=== PATIENT | male | born 1940 | race Caucasian/White ===

== ENCOUNTER → 2017-09-12 07:43 | Outpatient (REF) | payer OTHER, SELFPAY ==
[2017-09-13 11:57] LABS: Bilirubin Negative (Negative); Blood Trace-intact (Negative); Clarity Cloudy; Glucose Negative (Negative); Ketones Trace mg/dL (Negative); Leukocyte Esterase Negative (Negative); Nitrite Negative (Negative); Specific Gravity >= 1.030 (1.005-1.025); Urobilinogen 0.2 EU/dL (Up TO 0.2); pH 5.5 (5-8)
[2017-09-13 12:14] LABS: WBC 0-2 HPF (0-5)
[2017-09-13 12:15] LABS: Epithelial Cells Negative HPF (Negative); Other Cells Few Renal (Negative)
[2017-09-13 12:17] LABS: Bacteria Moderate HPF (Negative); C & S Indicated? Yes; Casts Negative LPF (Negative); Crystals Moderate Amorphous HPF (Negative); Mucus Moderate (Negative)
== END ==
LOC: LBN 07:43
PROVIDERS: PCP Family Medicine; Visit Provider Family Medicine
DX: N39.0 Urinary tract infection, site not specified (principal)
CPT/HCPCS: 87077; 81003; 81015; 87086; 87186

== ENCOUNTER 2017-10-21 12:20 | Outpatient (CLI) | payer OTHER, SELFPAY | END 2017-10-21 12:40 | PROVIDERS: PCP Family Medicine; Visit Provider Family Medicine | DX: N39.0 Urinary tract infection, site not specified (principal) | CPT/HCPCS: 87086 ==

== ENCOUNTER 2017-10-31 08:42 | Outpatient (CLI) | payer OTHER, SELFPAY ==
[2017-10-31 12:48] LABS: Abs Immature Grans 0.01 k/cumm (0.0-0.09); Absolute Basophil Count 0.02 k/cumm (0.0-0.2); Absolute Eosinophil Count 0.09 k/cumm (0.0-0.7); Absolute Neutrophil Count 1.84 k/cumm (1.2-6.7); Basophils % 0.5; Eosinophils % 2.2; HGB 14.2 g/dL (13.5-17.5); Immature Grans % 0.2; Lymphocytes % 36.9; Mean Corpuscular Hemoglobin 37.3 pg (27.0-33.0); Mean Corpuscular Volume 112.9 fL (80-95); Mean Platelet Volume 10.8 fL (8.0-11.0); Monocytes % 14.8; Neutrophils % 45.4; Platelet Count 278 x1000/uL (130-400); RBC 3.81 m/cumm (4.50-6.00); RBC Distribution Width 13.4 % (11.8-14.1); White Blood Cell Count 4.06 k/cumm (4.4-10.8)
[2017-10-31 13:17] LABS: Anisocytosis 2+
[2017-10-31 13:18] LABS: Polychromasia Present
== END 2017-10-31 09:02 ==
PROVIDERS: PCP Family Medicine; Visit Provider Internal Medicine Hematology & Oncology
DX: D47.3 Essential (hemorrhagic) thrombocythemia (principal)
CPT/HCPCS: 36415; 85025

== ENCOUNTER 2017-11-17 02:21 | Outpatient (CLI) | payer OTHER, SELFPAY ==
[2017-11-17 11:59] LABS: Abs Immature Grans 0.01 k/cumm (0.0-0.09); Absolute Basophil Count 0.01 k/cumm (0.0-0.2); Absolute Eosinophil Count 0.06 k/cumm (0.0-0.7); Absolute Lymphocyte Count 1.41 k/cumm (1.2-3.4); Absolute Monocyte Count 0.91 k/cumm (0.11-0.7); Absolute Neutrophil Count 1.41 k/cumm (1.2-6.7); Basophils % 0.3; Eosinophils % 1.6; HCT 44.4 % (40.0-50.0); HGB 14.6 g/dL (13.5-17.5); Immature Grans % 0.3; Mean Corp. HGB Concentration 32.9 g/dL (32.0-36.0); Mean Corpuscular Hemoglobin 36.8 pg (27.0-33.0); Mean Corpuscular Volume 111.8 fL (80-95); Mean Platelet Volume 10.2 fL (8.0-11.0); Monocytes % 23.9; Neutrophils % 36.9; Platelet Count 275 x1000/uL (130-400); RBC 3.97 m/cumm (4.50-6.00); RBC Distribution Width 13.3 % (11.8-14.1); White Blood Cell Count 3.81 k/cumm (4.4-10.8)
[2017-11-17 12:25] LABS: Diff Comment Agrees w/ Instrument; Macrocytosis 2+
[2017-11-17 13:12] LABS: ALT 20 U/L (12-78); AST 11 U/L (15-37); Albumin 3.7 g/dL (3.4-5.0); Alkaline Phosphatase 76 U/L (46-116); Anion Gap 6.5 mmol/L (3-11); BUN 23 mg/dL (7-18); Bilirubin, Total 0.6 mg/dL (0.2-1.0); CO2 31.5 mmol/L (21.0-32.0); CREATININE 1.24 mg/dL (0.70-1.30); Calcium 8.8 mg/dL (8.5-10.1); Chloride 105 mmol/L (98-107); Cholesterol 155 mg/dL (50-200); Estimated GFR 56.68 (mL/min/1.73m2); Glucose 94 mg/dL (70-100); HDL Cholesterol 59 mg/dL (40-60); LDL CHOLESTEROL 86 mg/dL (<100); Potassium 4.6 mmol/L (3.5-5.1); Sodium 143 mmol/L (136-145); Total Protein 6.7 g/dL (6.4-8.2); Triglyceride 97 mg/dL (30-150)
== END 2017-11-17 02:41 ==
PROVIDERS: Internal Medicine Hematology & Oncology; PCP Family Medicine; Visit Provider Family Medicine
DX: D47.3 Essential (hemorrhagic) thrombocythemia (principal); E78.00 Pure hypercholesterolemia, unspecified; G93.1 Anoxic brain damage, not elsewhere classified
CPT/HCPCS: 36415; 80053; 80061; 83721; 85025

== ENCOUNTER 2018-02-09 02:28 | Outpatient (CLI) | payer OTHER, SELFPAY ==
[2018-02-09 11:15] LABS: Abs Immature Grans 0.01 k/cumm (0.0-0.09); Absolute Basophil Count 0.01 k/cumm (0.0-0.2); Absolute Eosinophil Count 0.07 k/cumm (0.0-0.7); Absolute Lymphocyte Count 1.37 k/cumm (1.2-3.4); Absolute Neutrophil Count 2.01 k/cumm (1.2-6.7); Basophils % 0.2; Eosinophils % 1.7; HCT 42.6 % (40.0-50.0); HGB 14.7 g/dL (13.5-17.5); Immature Grans % 0.2; Lymphocytes % 33.7; Mean Corp. HGB Concentration 34.5 g/dL (32.0-36.0); Mean Corpuscular Hemoglobin 38.1 pg (27.0-33.0); Mean Corpuscular Volume 110.4 fL (80-95); Mean Platelet Volume 10.2 fL (8.0-11.0); Monocytes % 14.7; Neutrophils % 49.5; Platelet Count 269 x1000/uL (130-400); RBC 3.86 m/cumm (4.50-6.00); RBC Distribution Width 13.7 % (11.8-14.1); White Blood Cell Count 4.07 k/cumm (4.4-10.8)
== END 2018-02-09 02:48 ==
PROVIDERS: PCP Family Medicine; Visit Provider Internal Medicine Hematology & Oncology
DX: D47.3 Essential (hemorrhagic) thrombocythemia (principal)
CPT/HCPCS: 36415; 85025

== ENCOUNTER 2018-04-10 10:10 | Outpatient (CLI) | payer OTHER, SELFPAY ==
--- NOTE | 2018-04-17 06:51 | HOLTER_ITS ---
HOLTER MONITOR DATE OF DICTATION April 14, 2018 RECORDING April 10, 2018 ANALYSIS April 12, 2018 INDICATION Bradycardia. REFERRING PHYSICIAN Iris Mejia M.D. FINDINGS 1. Baseline sinus rhythm, 53-108 beats per minute, average 66 beats per minute. 2. Rare PAC, less than 1%, 4 SVT runs, maximally 13 beats, maximally 176 beats per minute. No AF. 3. Occasional PVC, 1%, 987 in 24 hours, 11 couplets, 15 beat nonsustained VT 113 beats per minute. 4. No pauses. 5. No symptoms recorded. Dominique Samuel M.D. LAINA/heather T - 04/17/2018
== END 2018-04-10 10:30 ==
PROVIDERS: PCP Family Medicine; Visit Provider Family Medicine
DX: R00.1 Bradycardia, unspecified (principal); I47.1 Supraventricular tachycardia; I49.3 Ventricular premature depolarization
CPT/HCPCS: 93225

== ENCOUNTER 2018-04-12 14:51 | Outpatient (CLI) | payer OTHER, SELFPAY | END 2018-04-12 15:11 | PROVIDERS: PCP Family Medicine; Visit Provider Family Medicine | DX: R00.1 Bradycardia, unspecified (principal); I47.1 Supraventricular tachycardia; I49.3 Ventricular premature depolarization | CPT/HCPCS: 93226 ==

== ENCOUNTER 2018-04-21 15:27 | Outpatient (CLI) | payer OTHER, SELFPAY ==
--- NOTE | 2018-04-21 16:06 | SAO2N_ITS ---
SAO2 with Exercise Patient:KINGSLEY HAMPTON Date/Time: 04/22/18 1741 [id number] Tech: KL
== END 2018-04-21 15:47 ==
PROVIDERS: PCP Family Medicine; Visit Provider Family Medicine
DX: J44.9 Chronic obstructive pulmonary disease, unspecified (principal)
CPT/HCPCS: 94762

== ENCOUNTER 2018-05-08 08:30 | Outpatient (CLI) | payer OTHER, SELFPAY ==
[2018-05-08 12:44] LABS: Absolute Basophil Count 0.02 k/cumm (0.0-0.2); Absolute Eosinophil Count 0.05 k/cumm (0.0-0.7); Absolute Lymphocyte Count 1.42 k/cumm (1.2-3.4); Absolute Monocyte Count 0.49 k/cumm (0.11-0.7); Absolute Neutrophil Count 1.86 k/cumm (1.2-6.7); Basophils % 0.5; Eosinophils % 1.3; HGB 14.4 g/dL (13.5-17.5); Mean Corp. HGB Concentration 32.7 g/dL (32.0-36.0); Mean Corpuscular Hemoglobin 36.3 pg (27.0-33.0); Mean Corpuscular Volume 110.8 fL (80-95); Mean Platelet Volume 10.8 fL (8.0-11.0); Monocytes % 12.8; Neutrophils % 48.4; Platelet Count 305 x1000/uL (130-400); RBC 3.97 m/cumm (4.50-6.00); RBC Distribution Width 13.8 % (11.8-14.1); White Blood Cell Count 3.84 k/cumm (4.4-10.8)
[2018-05-08 13:17] LABS: Anisocytosis 2+; Diff Comment RBC Morph Reviewed; Polychromasia Present
[2018-05-08 13:21] LABS: ALT 25 U/L (12-78); AST 19 U/L (15-37); Albumin 3.6 g/dL (3.4-5.0); Alkaline Phosphatase 73 U/L (46-116); Anion Gap 8.2 mmol/L (3-11); BUN 21 mg/dL (7-18); Bilirubin, Total 0.8 mg/dL (0.2-1.0); CO2 30.8 mmol/L (21.0-32.0); CREATININE 1.03 mg/dL (0.70-1.30); Calcium 9.1 mg/dL (8.5-10.1); Chloride 105 mmol/L (98-107); Glucose 73 mg/dL (70-100); Potassium 4.3 mmol/L (3.5-5.1); Sodium 144 mmol/L (136-145); Total Protein 6.7 g/dL (6.4-8.2)
== END 2018-05-08 08:50 ==
PROVIDERS: PCP Family Medicine; Visit Provider Internal Medicine Hematology & Oncology
DX: D47.3 Essential (hemorrhagic) thrombocythemia (principal)
CPT/HCPCS: 36415; 80053; 85025

== ENCOUNTER 2018-10-25 19:11 | Emergency (ER) | payer OTHER, SELFPAY ==
[2018-10-25 19:10] VITALS: BP 129/77; PULSE 68; RESP 18; TEMP 36.7; O2SAT 94
--- NOTE | 2018-10-25 19:41 | ED.GENADUL_ITS ---
Discharge Plan Disposition Patient Disposition: HOME Condition: Fair Discharge Details Chief Complaint: Abd Prob Clinical Impression: Vomiting Primary Care Provider: Iris Mejia ED Provider: Gabriela Colin Home Meds and New Rx's Prescriptions: Continued aspirin 81 MG tablet,chewable 81 mg PO DAILY RF: 0 escitalopram oxalate [Lexapro] 10 mg tablet 10 mg PO DAILY Qty: 90 RF: 12 simvastatin [Zocor] 20 mg tablet 20 mg PO HS Qty: 90 RF: 4 hydroxyurea [Hydrea] 500 mg capsule 1,000 mg PO DAILY Qty: 180 RF: 12 docusate sodium [Colace] 100 mg capsule 100 mg PO DAILY PRNRF: 0 Discharge Instructions Instructions: Acute Nausea and Vomiting (ED) Additional Instructions: Continue to encourage hydration. At this point, imaging, labs are reassuring. Please follow-up with primary care within the next week for reevaluation. If you develop fever/chills, inability stay hydrated, chest pain, shortness of breath or the new/worsening symptoms please seek care urgently once again. Referrals: Iris Mejia MD, [place] [Primary Care Provider] - Discharge Data Discharge Date/Time-TO BE ENTERED AT DEPARTURE: 10/25/18 23:53 Medical Decision Making Patient is 78-year-old male, brought in via EMS and accompanied by his , with chief complaint of nausea and vomiting. Therefore the prior to arrival he was eating dinner when suddenly he became nauseated and vomited x5. Reports that primarily is bringing up bile. Was eating steak and corn at times came up. He denies any feeling of food being stuck a foreign body sensation. He denies any chest pain or shortness of breath. Patient does have history of hiatal hernia with subsequent fundoplication. reports that he did have symptoms similar to this for that time he was also having hematemesis. Denies any blood in the emesis today. Patient also has a history of NV. does report that his initial symptom was sudden onset of vomiting. He then suffered a cardiac arrest. Had subsequent anoxic brain injury. Cardiac catheterization was performed stent placement. Patient denies any chest pain. No shortness of breath. Is not currently nauseated. He reports that currently he is feeling quite well. is primarily the historian, does report memory deficit after the anoxic brain injury. On exam, patient is well-appearing. Vital signs are within normal limits. He does clear his throat frequently and reports this is new over the past few months. She reports that this was similar to symptoms associated with his hiatal hernia. Lungs are clear. Normal cardiac exam. No lower extremity edema. Abdomen is benign. Given the patient's history, I am concerned for possible cardiac source. Patient was not active at the time of onset. Will obt ain EKG, laboratory evaluation and chest x-ray. Advised that the patient was you had a recurrence of the hiatal hernia this may be visible on the chest x- ray. As he is not having any abdominal pain at this time, do not feel that CT of the abdomen is needed . ECG reviewed by Dr. Villasenor. NSR, rate 60. Patient has nonspecific T wave abnormalities but these are unchanged from previous. CXR reviewed by radiologist: INDINGS: Lungs: Mild prominence to the pulmonary vasculature. Lungs are clear. Pleural space: Unremarkable. No pleural effusion. No pneumothorax. Heart/Mediastinum: Previously noted large hiatal hernia is not seen in this examination. Heart also normal size and configuration. Diaphragm: Mild elevation of the left hemidiaphragm. Bones/joints: No acute skeletal abnormality. IMPRESSION: Negative for acute thoracic pathology. Labs reviewed. I constantly low 3.47, this is not atypical for the patient. Slightly anemic at 12.8. is BUN is 21. Calcium is low at 8.4. Troponin is less than 0.05. Discussed these findings with the patient. Patient continues to be asymptomatic. He is resting comfortably and chatting with his . He has not endorsed any recurrence of his nausea. Again, patient is denying any chest pain, shortness of breath, abdominal pain, back pain. Given the patient's history, I do remain concerned for possible ACS although his symptoms are unl ikely. He is now describing the symptoms to be more gagging with subsequent vomiting associated with his food intake. Discussed my concerns with the patient his family. They are agreeable to repeat troponin. Repeat time troponin remains less than 0.05. Discussed the findings with the patient's family. Again, symptoms are not concerning for ACS, rather is the patient's history. I feel that discharge is appropriate at this time and patient is are requesting discharge. He will follow-up closely with primary care. They are given strict return precautions are able to return with any new or worsening symptoms. All other questions and concerns were addressed in agreement this plan. HPI General Mode of arrival: EMS . Date/Time Provider Initiated Documentation: 10/25/18 19:24 . Limitations to Documentation: no limitations . Information obtained by: patient, family () and RN notes reviewed . History of Present Illness 78 year old M presents to the emergency department with the chief complaint of nausea and vomiting, described as mild (denies any abdominal pain, denies nausea at this time), Patient reports no radiation (denies CP, back pain). Patient started experiencing this minute(s) and it has been now resolved. No relieving factors improve symptom(s), Eating worsens symptoms (patient was eating at the time of onset of symptoms) . Patient notes no other symptoms. and nausea/vomiting; denies chest pain, cough, diaphoresis, fever/chills, headaches, loss of appetite, malaise, rash, shortness of breath and weakness. Patient did receive the following treatments prior to arrival, other (give zofran by EMS) Related Data Home Medications Medication Instructions Recorded Confirmed aspirin 81 mg PO DAILY tab-cap 02/10/16 10/25/18 docusate sodium 100 mg capsule 100 mg PO DAILY PRN 11/15/17 10/25/18 escitalopram oxalate 10 mg tablet 10 mg PO DAILY #90 tab-cap 09/18/18 10/25/18 simvastatin 20 mg tablet 20 mg PO HS #90 tab-cap 09/18/18 10/25/18 hydroxyurea 500 mg capsule 1,000 mg PO DAILY #180 tab 09/19/18 10/25/18 Previous Rx's Medication Instructions Recorded escitalopram oxalate 10 mg tablet 10 mg PO DAILY #90 tab-cap 09/18/18 simvastatin 20 mg tablet 20 mg PO HS #90 tab-cap 09/18/18 hydroxyurea 500 mg capsule 1,000 mg PO DAILY #180 tab 09/19/18 Allergies Allergy/AdvReac Type Severity Reaction Status Date / Time cyclobenzaprine HCl AdvReac CONFUSION Unverified 10/25/18 19:14 [From Flexeril] General Stated Complaint: Abd Prob DAWN: 3 Review of Systems Constitutional Constitutional: Reports as per HPI, Denies chills, Denies fever(s), Denies headache(s), Denies lethargy and Denies poor appetite Eyes Eyes: Denies change in vision ENT Ears, Nose, Mouth, and Throat: Denies dizziness and Denies headache(s) Cardiovascular Cardiovascular: Reports as per HPI, Denies chest pain, Denies chest pain at rest, Denies chest pain with activity, Denies diaphoresis, Denies pedal edema, Denies leg edema, Denies lightheadedness, Denies radiating jaw, neck or arm pain, Denies palpitations, Denies dyspnea and Denies dyspnea on exertion Respiratory Respiratory: Reports as per HPI, Denies chest congestion, Denies cough, Denies pain on inspiration, Denies pain with cough, Denies dyspnea, Denies dyspnea on exertion and Denies wheezing Gastrointestinal Gastrointestinal: Reports as per HPI, Denies abdominal pain, Denies change in stool character, Denies cramping, Denies heartburn, Denies diarrhea, Reports nausea, Reports vomiting and Denies hematemesis Genitourinary Genitourinary: Denies system reviewed and no additional complaints, except as docu (denies change in urinary habits) Musculoskeletal Musculoskeletal: Reports as per HPI and Denies back pain Integumentary/Breasts Skin/Breast: Reports as per HPI and Denies rash Neurologic Neurologic: Reports as per HPI, Denies dizziness and Denies headache(s) Endocrine Endocrine: Denies palpitations Allergic/Immunologic Allergic/Immunologic: Denies wheezing [facility] Medical History Cardiac arrest (~2005) Chronic obstructive lung disease (Chronic) FEV1 70% 02/20 COPD (chronic obstructive pulmonary disease) Disorder of adrenal gland (Resolved) Hypofunction; 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 saw Miranda. Resolved with time. Thought to be secondary to brain hypoxia. Diverticulosis of colon without diverticulitis (Chronic) colonoscopy 06/15. Dr Stanford Gonzalez GI Erosive gastroesophageal reflux disease (Chronic 06/09/16) SEVERE-DR. 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 Coyne; neg 09/28/13 Dr. Antoine EGD - IV Sedation (06/09/16) 08/16/12 DR. ANTOINE 05/05/12 Dr. antoine; esophagitis 09/28/13 Dr. antoine H/O esophagogastroduodenoscopy (Resolved) 08/16/2012-Dr. Antoine; 05/05/12-Dr. Antoine; esophagitis 09/28/2013-Dr. Antoine H/O hemorrhoidectomy (Resolved) Hemorrhoidectomy Paraesophageal hernia repair (08/17/16) [facility] [place] Repair of inguinal hernia 2006 Left 2004 Right S/P endoscopy (Resolved) 02/07/13 upper endoscopy S/P inguinal hernia repair (Resolved) left-2005; right-2003 STEMI (~2005) Posterior lateral Family History Mother No problems noted. Father No problems noted. Sister Heart disease PACEMAKER Daughter No problems noted. Daughter No problems noted. Social History Smoking/Tobacco Use Status: Former Tobacco Use Quit Date: 02/07/05 Second Hand Exposure: No Alcohol Intake: never Drug use: Never Substance use type: does not use Caregiver/Support person: Yes Household members: spouse Housing: house Pets and animals: Yes Pets and animals: cat(s) Sexually active: Yes Do you think of yourself as: straight/heterosexual Current gender identity: male Duration: 15-30 minutes/day Frequency: 1-2 times per week Mayuri/Sikhism: Taoist Agree to transfusion: No Do you feel safe at home: Yes Do you feel safe in your relationship?: Yes Exam Const General: cooperative, healthy appearing, comfortable, no acute distress and well developed Nutritional Appearance: average body habitus and well nourished Orientation: alert, awake and oriented x3 HENMT Head: normal to inspection Ears: hearing grossly normal bilaterally Mouth: moist mucous membranes Chest Chest: normal inspection of the chest, normal palpation of entire chest wall and no crepitus Resp Effort & Inspection: normal respiratory effort, able to speak in complete sentences and no respiratory distress Auscultation: clear to auscultation bilaterally, no rales, no rhonchi and no wheezes Cardio Rate: regular rate Rhythm: regular rhythm Heart Sounds: S1 normal and S2 normal GI Inspection: normal to inspection, no edema and non-distended Palpation: soft, no hepatosplenomegaly, not firm, no guarding, not rigid and nontender Auscultation: normal bowel sounds Back/Spine/Pelvis Back: no CVA tenderness Thoracic/Lumbar Spine: thoracic and lumbar spine normal to inspection Skin General skin exam: no rashes or lesions noted Trauma: no lacerations or abrasions Neuro General: alert, awake and oriented x3 Cognition: normal cognition Speech: speech normal Gait: normal gait Extrem General: normal to inspection, normal capillary refill, no pedal edema, no calf tenderness and normal gait Psych Appearance: grossly normal and well kempt Mental Status: mental status grossly normal Speech and Movement: speech and movement normal Course Vital Signs Vital signs: Vital Signs Temperature 36.7 C 10/25/18 19:10 Pulse 68 10/25/18 19:10 Respiratory Rate 18 10/25/18 19:10 Blood Pressure 129/77 10/25/18 19:10 Pulse Oximetry 94 L 10/25/18 19:10 Temperature 36.7 C 10/25/18 19:10 Temperature Source Skin 10/25/18 19:10 Pulse 68 10/25/18 19:10 Respiratory Rate 18 10/25/18 19:10 Respiratory Effort Non-Labored 10/25/18 19:12 Blood Pressure 129/77 10/25/18 19:10 Blood Pressure Position Supine 10/25/18 19:10 Pulse Oximetry 94 L 10/25/18 19:10 Oxygen Delivery Method Room Air 10/25/18 19:10 Oxygen Flow Rate 0 10/25/18 19:10 Pain Level 0 10/25/18 19:17
[2018-10-25 20:07] VITALS: BP 109/71; PULSE 60; RESP 16; O2SAT 95
[2018-10-25 20:09] LABS: Absolute Basophil Count 0.02 k/cumm (0.0-0.2); Absolute Eosinophil Count 0.09 k/cumm (0.0-0.7); Absolute Lymphocyte Count 1.02 k/cumm (1.2-3.4); Absolute Neutrophil Count 1.84 k/cumm (1.2-6.7); Basophils % 0.6; Eosinophils % 2.6; HGB 12.8 g/dL (13.5-17.5); Lymphocytes % 29.4; Mean Corp. HGB Concentration 32.8 g/dL (32.0-36.0); Mean Corpuscular Hemoglobin 37.5 pg (27.0-33.0); Mean Corpuscular Volume 114.4 fL (80-95); Mean Platelet Volume 10.8 fL (8.0-11.0); Monocytes % 14.4; Platelet Count 260 x1000/uL (130-400); RBC 3.41 m/cumm (4.50-6.00); RBC Distribution Width 13.6 % (11.8-14.1); White Blood Cell Count 3.47 k/cumm (4.4-10.8)
--- NOTE | 2018-10-25 20:17 | DI.RAD_ITS ---
EXAM: XR CHEST 2V PA LATERAL INDICATION: N/V, chest congestion. COMPARISON: CHEST 2 VIEWS PA,LAT from 07/22/2016 TECHNIQUE: 2D digital imaging was performed. FINDINGS: The lungs are free of infiltrate. There is no pleural effusion. Compared with previous images again noted is a large gas and fluid containing hiatus hernia. The heart is not enlarged. The hilar structu res, mediastinum and tracheal air column appear stable when compared with previous images. IMPRESSION: There is no evidence of acute cardiopulmonary disease.
[2018-10-25 20:21] LABS: ALT 23 U/L (16-63); AST 16 U/L (15-37); Albumin 3.3 g/dL (3.4-5.0); Alkaline Phosphatase 59 U/L (46-116); BUN 21 mg/dL (7-18); Bilirubin, Total 0.5 mg/dL (0.2-1.0); CREATININE 1.11 mg/dL (0.70-1.30); Calcium 8.4 mg/dL (8.5-10.1); Chloride 109 mmol/L (98-107); Glucose 99 mg/dL (70-100); Magnesium 1.8 mg/dL (1.8-2.4); Potassium 4.7 mmol/L (3.5-5.1); Sodium 145 mmol/L (136-145); Total Protein 6.2 g/dL (6.4-8.2)
[2018-10-25 20:26] LABS: Troponin I < 0.05 ng/mL (0.00-0.06)
--- NOTE | 2018-10-25 20:27 | DI.VRAD_ITS ---
PROCEDURE INFORMATION: Exam: XR Chest, 2 Views Exam date and time: 10/25/2018 7:42 PM Clinical history: 78 years old, male; Other: Nv chest congestion TECHNIQUE: Imaging protocol: XR of the chest Views: 2 views. COMPARISON: CR CHEST 2 VIEWS PA,LAT 07/22/2016 7:49 PM FINDINGS: Lungs: Mild prominence to the pulmonary vasculature. Lungs are clear. Pleural space: Unremarkable. No pleural effusion. No pneumothorax. Heart/Mediastinum: Previously noted large hiatal hernia is not seen in this examination. Heart also normal size and configuration. Diaphragm: Mild elevation of the left hemidiaphragm. Bones/joints: No acute skeletal abnormality. IMPRESSION: Negative for acute thoracic pathology. Dictated and Authenticated by: Elio Real MD. Ordering:VIRAL Ochoa MD
[2018-10-25] MEDS: Normal Saline 1,000 ML 125 ML IV (20:35)
[2018-10-25 21:11] VITALS: BP 106/72; PULSE 58; RESP 16; O2SAT 96
[2018-10-25 22:04] LABS: Macrocytosis 3+
[2018-10-25 23:24] VITALS: BP 116/80; PULSE 67; RESP 17; TEMP 36.9; O2SAT 96
[2018-10-25 23:33] LABS: Troponin I < 0.05 ng/mL (0.00-0.06)
== END 2018-10-25 23:53 | disposition home or self-care (01) ==
PROVIDERS: Emergency Provider Physician Assistant; PCP Family Medicine
DX: R11.2 Nausea with vomiting, unspecified (principal); J44.9 Chronic obstructive pulmonary disease, unspecified; I25.2 Old myocardial infarction; Z98.890 Other specified postprocedural states; Z87.891 Personal history of nicotine dependence
CPT/HCPCS: 36415; 80053; 93005; 96360; 96361; 99285; 71046; 83735; 84484; 85025; 93010

== ENCOUNTER 2019-01-17 01:37 | Outpatient (CLI) | payer OTHER, SELFPAY ==
[2019-01-17 12:48] LABS: HCT 43.8 % (40.0-50.0); HGB 14.6 g/dL (13.5-17.5); Mean Corp. HGB Concentration 33.3 g/dL (32.0-36.0); Mean Corpuscular Volume 114.1 fL (80-95); Mean Platelet Volume 10.5 fL (8.0-11.0); Platelet Count 364 x1000/uL (130-400); RBC 3.84 m/cumm (4.50-6.00); RBC Distribution Width 13.8 % (11.8-14.1); White Blood Cell Count 3.85 k/cumm (4.4-10.8)
[2019-01-17 12:58] LABS: ALT 18 U/L (16-63); AST 17 U/L (15-37); Albumin 3.7 g/dL (3.4-5.0); Alkaline Phosphatase 65 U/L (46-116); Anion Gap 5.3 mmol/L (3-11); BUN 23 mg/dL (7-18); Bilirubin, Total 0.6 mg/dL (0.2-1.0); CO2 31.7 mmol/L (21.0-32.0); CREATININE 1.14 mg/dL (0.70-1.30); Chloride 106 mmol/L (98-107); Glucose 87 mg/dL (74-106); Potassium 4.3 mmol/L (3.5-5.1); Sodium 143 mmol/L (136-145)
== END 2019-01-17 01:57 ==
PROVIDERS: PCP Family Medicine; Visit Provider Internal Medicine Hematology & Oncology
DX: D47.3 Essential (hemorrhagic) thrombocythemia (principal)
CPT/HCPCS: 36415; 80053; 85027

== ENCOUNTER 2019-01-19 11:40 | Outpatient (CLI) | payer OTHER, SELFPAY ==
[2019-01-19 12:38] LABS: HCT 42.9 % (40.0-50.0); HGB 13.9 g/dL (13.5-17.5); Mean Corp. HGB Concentration 32.4 g/dL (32.0-36.0); Mean Corpuscular Hemoglobin 37.1 pg (27.0-33.0); Mean Corpuscular Volume 114.4 fL (80-95); Mean Platelet Volume 10.6 fL (8.0-11.0); Platelet Count 355 x1000/uL (130-400); RBC 3.75 m/cumm (4.50-6.00); RBC Distribution Width 13.9 % (11.8-14.1); White Blood Cell Count 4.05 k/cumm (4.4-10.8)
[2019-01-19 13:42] LABS: ALT 21 U/L (16-63); AST 28 U/L (15-37); Albumin 3.8 g/dL (3.4-5.0); Alkaline Phosphatase 65 U/L (46-116); Anion Gap 7.4 mmol/L (3-11); BUN 22 mg/dL (7-18); Bilirubin, Total 0.7 mg/dL (0.2-1.0); CO2 30.6 mmol/L (21.0-32.0); CREATININE 1.08 mg/dL (0.70-1.30); Calcium 9.1 mg/dL (8.5-10.1); Chloride 106 mmol/L (98-107); Glucose 66 mg/dL (74-106); Potassium 4.6 mmol/L (3.5-5.1); Sodium 144 mmol/L (136-145); Total Protein 6.6 g/dL (6.4-8.2)
== END 2019-01-19 12:00 ==
PROVIDERS: PCP Family Medicine; Referring Provider Internal Medicine Hematology & Oncology; Visit Provider Family Medicine
DX: I95.9 Hypotension, unspecified (principal); D47.3 Essential (hemorrhagic) thrombocythemia; K20.9 Esophagitis, unspecified
CPT/HCPCS: 36415; 80053; 85027

== ENCOUNTER 2019-01-29 00:54 | Outpatient (CLI) | payer OTHER, SELFPAY ==
--- NOTE | 2019-01-29 10:17 | DI.US_ITS ---
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 COMPARISON: There are no prior ultrasounds for comparison. The most recent CT scan of the abdomen i s dated 12/12/2015 FINDINGS: There is limited visualization of the abdominal aorta. The visualized aorta is of normal caliber. T he inferior vena cava is unremarkable. The liver measures 14.3 centimeters in length. No hepatic mass is seen. There is hepatopetal flow i n the portal vein. The gallbladder is unremarkable. There is a negative sonographic Patel sign. No biliary ductal dil atation is present. The pancreatic tail was not visualized, however the remainder of the pancreas is unremarkable. The kidneys are unremarkable. The spleen was not visualized sonographically. This may be due to its location and bowel gas. No free fluid is seen in the abdomen. IMPRESSION: Nonvisualization of the spleen. This may be due to its location and/or bowel gas. A CT scan may be considered for further evaluation. Liver within normal limits in size at 14.3 centimeters. There are no prior sonographic examinations for comparison.
== END 2019-01-29 01:14 ==
PROVIDERS: PCP Family Medicine; Visit Provider Internal Medicine Hematology & Oncology
DX: D47.3 Essential (hemorrhagic) thrombocythemia (principal)
CPT/HCPCS: 76700

== ENCOUNTER 2019-04-17 10:14 | Outpatient (CLI) | payer OTHER, SELFPAY ==
[2019-04-17 12:11] LABS: Abs Immature Grans 0.01 k/cumm (0.0-0.09); Absolute Basophil Count 0.02 k/cumm (0.0-0.2); Absolute Eosinophil Count 0.05 k/cumm (0.0-0.7); Absolute Lymphocyte Count 1.28 k/cumm (1.2-3.4); Absolute Monocyte Count 0.51 k/cumm (0.11-0.7); Absolute Neutrophil Count 2.19 k/cumm (1.2-6.7); Basophils % 0.5; Eosinophils % 1.2; HCT 44.1 % (40.0-50.0); HGB 14.6 g/dL (13.5-17.5); Immature Grans % 0.2 %; Lymphocytes % 31.5; Mean Corp. HGB Concentration 33.1 g/dL (32.0-36.0); Mean Corpuscular Hemoglobin 37.7 pg (27.0-33.0); Mean Platelet Volume 10.2 fL (8.0-11.0); Monocytes % 12.6; Platelet Count 350 x1000/uL (130-400); RBC 3.87 m/cumm (4.50-6.00); RBC Distribution Width 13.4 % (11.8-14.1); White Blood Cell Count 4.06 k/cumm (4.4-10.8)
== END 2019-04-17 10:34 ==
PROVIDERS: PCP Family Medicine; Visit Provider Internal Medicine Hematology & Oncology
DX: D47.3 Essential (hemorrhagic) thrombocythemia (principal)
CPT/HCPCS: 36415; 85025

== ENCOUNTER 2019-06-30 17:27 | Emergency (ER) | payer OTHER, SELFPAY ==
[2019-06-30 17:38] VITALS: BP 116/90; PULSE 72; RESP 18; TEMP 36.4; O2SAT 95
--- NOTE | 2019-06-30 18:00 | ED.GENADUL_ITS ---
Discharge Plan Disposition Patient Disposition: HOME Condition: Stable Discharge Details Chief Complaint: Urinary Clinical Impression: Hematuria Primary Care Provider: Iris Mejia ED Provider: Charis Geronimo Home Meds and New Rx's Prescriptions: No Action aspirin 81 MG tablet,chewable 81 mg PO DAILY RF: 0 escitalopram oxalate [Lexapro] 10 mg tablet 10 mg PO DAILY Qty: 90 RF: 12 hydroxyurea [Hydrea] 500 mg capsule 1,000 mg PO DAILY Qty: 180 RF: 12 simvastatin [Zocor] 20 mg tablet 20 mg PO HS Qty: 90 RF: 4 docusate sodium [Colace] 100 mg capsule 100 mg PO DAILY PRNRF: 0 Discharge Instructions Instructions: Hematuria (ED) Additional Instructions: Please follow-up with Dr. Flores regarding hematuria and the need for cystoscopy. Drink plenty of fluids. Rest activities as tolerated. For any difficulty passing urine, pain in the lower abdomen, weakness, feeling of fatigue or alarming symptoms have immediate reevaluation as discussed. Return for any worsening or concerns sooner if needed Referrals: Terrance Flores MD [ [facility] STAFF PHYSICIAN] - Discharge Data Discharge Date/Time-TO BE ENTERED AT DEPARTURE: 06/30/19 21:20 Medical Decision Making 78-year-old patient presenting the emergency room for complaints of hematuria. who provides the majority of patient's HPI reports hematuria began yesterday. Patient only complained of mild discomfort when passing blood clots with urination today. Patient does have some baseline malaise which seems unchanged. See HPI for remainder of patient's history. Patient appears well on initial evaluation. Patient reports urinating without difficulty. reports patient has urinated several times today without difficulty. No urinary retention. Mild hesitancy is described at onset of stream. Patient has no CVA tenderness or abdominal pain. Will plan to obtain urinalysis as well as CBC as patient does have history of essential thrombocythemia. Given new onset hematuria we will plan to obtain CT urogram. Patient's initial vital signs are normal. Patient's CBC reveals normal platelets. H&H 13.6 and 41.4. Patient's renal function reveals no significant change compared to baseline. LFTs normal. Urinalysis reveals large blood. No evidence of acute infection at this time. Patient CT reveals IMPRESSION: 1. Small right-sided urinary bladder filling defects are identified on delayed imaging. These could be a source of hematuria and cystoscopy is recommended to assess possible malignancy. 2. Punctate nonobstructive right nephrolithiasis. 3. A large amount of desiccated appearing stool in the rectum with mild surrounding edema. Suggests a component of constipation with mild resulting proctitis. Patient CT results, labs and platelets as well as symptomatic presentation discussed with Dr. Flores of urology. Dr. Flores recommends follow-up as an outpatient for cystoscopy. Recommends return precautions to include difficulty voiding or inability to pass urine. Patient's results discussed with patient's as patient's memory is significantly impaired. given copy of results to follow-up with PCP. Recommended follow-up with Dr. Flores. Precautions discussed, recommended pushing fluids. Patient feels comfortable discharge home at this time. Vital signs remained normal. The patient was stable and requested discharge. Prior to discharge, my usual and customary return precautions were reviewed with the patient - this included follow-up instructions and reasons to return to the Emergency Department if conditions worsens, does not improve as expected, or other new concerns arise. HPI General Date/Time Provider Initiated Documentation: 06/30/19 17:31 . HPI Narrative: This is a 78-year-old patient who presents to the emergency room for onset of hematuria which began yesterday. Patient called PCP they recommended observation and follow-up in the office on Tuesday. Patient awoke this morning initial urination was again noted to have uriel hematuria. Patient has urinated 3 times today and does report passing clots of blood in his urine mild discomfort experienced when passing blood clots. Patient denies any dysuria. Denies abdominal pain or back pain. Denies fevers, chills. at the bedside who provides the better portion of patient's history as he has underlying memory issues reports that he always has some mild malaise. He does have a pertinent medical history of essential thrombocythemia. Patient has no other obvious sources of bleeding at this time. Denies any other bruising. No gum bleeding. No other concerns or complaints at this time. Patient denies any chest pain w ith difficulty breathing shortness of breath or wheezing. Patient denies any headache or dizziness. Patient's been eating and drinking without difficulty. Patient denies any bowel changes. Denies any testicular pain or swelling. Related Data Home Medications Medication Instructions Recorded Confirmed aspirin 81 mg PO DAILY tab-cap 02/10/16 06/30/19 docusate sodium 100 mg capsule 100 mg PO DAILY PRN 11/15/17 06/30/19 escitalopram oxalate 10 mg tablet 10 mg PO DAILY #90 tab-cap 09/18/18 06/30/19 hydroxyurea 500 mg capsule 1,000 mg PO DAILY #180 tab 09/19/18 06/30/19 simvastatin 20 mg tablet 20 mg PO HS #90 tab-cap 03/06/19 06/30/19 Previous Rx's Medication Instructions Recorded escitalopram oxalate 10 mg tablet 10 mg PO DAILY #90 tab-cap 09/18/18 hydroxyurea 500 mg capsule 1,000 mg PO DAILY #180 tab 09/19/18 simvastatin 20 mg tablet 20 mg PO HS #90 tab-cap 03/06/19 Allergies Allergy/AdvReac Type Severity Reaction Status Date / Time cyclobenzaprine HCl AdvReac CONFUSION Unverified 06/30/19 17:53 [From Flexeril] General Stated Complaint: Urinary DAWN: 4 Review of Systems All systems reviewed & are unremarkable except as noted in HPI and below PFSH Medical History Cardiac arrest (~2005) Chronic obstructive lung disease (Chronic) FEV1 70% 02/20 COPD (chronic obstructive pulmonary disease) Disorder of adrenal gland (Resolved) Hypofunction; 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 saw Miranda. Resolved with time. Thought to be secondary to brain hypoxia. Disorder of adrenal gland (Inactive) Diverticulosis of colon without diverticulitis (Chronic) colonoscopy 06/15. Dr Stanford Gonzalez GI Erosive gastroesophageal reflux disease (Chronic 06/09/16) SEVERE-DR. ANTOINE 06/09/16 Esophagitis Esophagitis (Chronic 04/08/12) Essential thrombocythemia (Chronic 03/28/12) Essential thrombocytopenia Full incontinence of feces (Chronic 08/15/17) Hemorrhoids (Resolved) S/P SURGERY Herpes zoster (Resolved) Hiatal hernia Hiatal hernia (Chronic 04/08/12) DR. 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 Coyne; neg 09/28/13 Dr. Antoine EGD - IV Sedation (06/09/16) 08/16/12 DR. ANTOINE 05/05/12 Dr. antoine; esophagitis 09/28/13 Dr. antoine H/O esophagogastroduodenoscopy (Resolved) 08/16/2012-Dr. Antoine; 05/05/12-Dr. Antoine; esophagitis 09/28/2013-Dr. Antoine H/O hemorrhoidectomy (Resolved) Hemorrhoidectomy History of esophagogastroduodenoscopy (Inactive) History of hemorrhoidectomy (Inactive) Paraesophageal hernia repair (08/17/16) [facility] Repair of inguinal hernia 2006 Left 2003 Right S/P endoscopy (Resolved) 02/07/13 upper endoscopy S/P inguinal hernia repair (Resolved) left-2005; right-2003 Status post inguinal hernia repair (Inactive) STEMI (~2005) Posterior lateral Social History Smoking/Tobacco Use Status: Former Tobacco Use Quit Date: 02/07/05 Second Hand Exposure: No Alcohol Intake: never Drug use: Current Sobriety Substance use type: marijuana Caregiver/Support person: Yes Household members: spouse Housing: house Pets and animals: Yes Pets and animals: cat(s) Sexually active: Yes Do you think of yourself as: straight/heterosexual Current gender identity: male Duration: 15-30 minutes/day Frequency: 1-2 times per week Mayuri/Mandaen: Jainism Agree to transfusion: No Do you feel safe at home: Yes Do you feel safe in your relationship?: Yes Exam Narrative Exam Narrative: CONST: Healthy appearing patient, in no acute distress. Well hydrated. Alert and oriented. EYES: General normal appearance. Alignment normal. Eyelids normal. Conjunctiva normal. Sclera normal. PERRL. NECK: Normal visual inspection. FROM. No lymphadenopathy. Trachea midline. No Midline tenderness. CHEST: Normal insepection of the chest. RESP: Normal respiratory effort. Speaking full sentences. No cough. No wheezing. No retractions. Clear to auscaltation. Breath sound equal and present bilaterally. CARDIO: No JVD. Normal PMI. Regular Rate. Regular Rhythm. Normal peripheral pulses. GI: Normal inspection of abdomen. No distension. Soft. Nontender. Bowel sounds present in all 4 quadrants. No rebound. No gaurding. MUSCULOSKELETAL: Normal Gait. FROM of all extremities. Distal neurovascularly intact. Sensation intact distally. SKIN: Normal. Dry. No rashes. NEURO: Alert and awake. Speech clear. PSYCH: Normal affect. Cooperative. Course Vital Signs Vital signs: Vital Signs Temperature 36.4 C L 06/30/19 17:38 Pulse 72 06/30/19 17:38 Respiratory Rate 18 06/30/19 17:38 Blood Pressure 116/90 06/30/19 17:38 Pulse Oximetry 95 06/30/19 17:38 Temperature 36.4 C L 06/30/19 17:38 Pulse 72 06/30/19 17:38 Respiratory Rate 18 06/30/19 17:38 Respiratory Effort Non-Labored 06/30/19 17:51 Blood Pressure 116/90 06/30/19 17:38 Blood Pressure Position Sitting 06/30/19 17:38 Pulse Oximetry 95 06/30/19 17:38 Oxygen Delivery Method Room Air 06/30/19 17:38 Oxygen Flow Rate 0 06/30/19 17:38 Pain Level 0 06/30/19 17:53 Lab/Test Results Lab/Test Results: 06/30/19 17:54 Urine - Clean Catch Urine Culture - Pending
--- NOTE | 2019-06-30 18:15 | DI.CT_ITS ---
EXAM: CT ABDOMEN PELVIS WO/W TECHNIQUE: Imaging Protocol: Axial computed tomography images with coronal and sagittal reformatted images were created and reviewed CONTRAST MATERIAL: Intravenous: Omnipaque 350 Contrast volume:99 cc contrast route:IV - Exam was performed pre and post IV contrast. Oral no COMPARISON: CT ABD PELVIS WITH CONTRAST from 09/07/2007 CR,XR XR CHEST 2V PA LATERAL from 10/25/2018 FINDINGS: ABDOMEN: Lung Bases: Normal where visualized. Liver: Normal density. No measurable mass. Gallbladder and biliary tract: No radiodense calculus or dilation. Pancreas: Normal density, no abnormal calcifications or inflammatory process. Spleen: Normal. Kidneys: Normal size, contour and axis. A tiny nonobstructing stone is seen on noncontrast images in the upper pole of the right kidney. There is a small left renal cyst. Adrenal glands: No masses seen. Lymph nodes: Within normal limits. Abdominal Aorta: Abdominal portion non-dilated. Mild calcification. PELVIS: Bladder: There are 2 adjacent small filling defects in the right posterior bladder, the larger measur ing 10 millimeters. There is also suggestion of a more ill-defined anterior bladder wall mass versus artifact.. Bowel: Suture material is noted near the fundus of the stomach. There is a large quantity of stool s een in the rectum which is distended to 7.5 cm. No obstruction or bowel wall thickening. Peritoneal cavity: No ascites, collection or mesenteric inflammatory response. Bones: Severe degenerative disc changes Reproductive organs: Mildly enlarged prostate.. IMPRESSION: Two right posterior bladder masses. Question of additional anterior bladder mass. Cystoscopy is rec ommended. Nonobstructing stones at the upper pole of the right kidney. Rectum distended with stool. RADIATION DOSE DELIVERED: 2,212.94mGy.cm Total DLP DATA REPOSITORY: All CT scans at this facility are submitted to the National Radiology Data Registry (NRDR) Dose Index Registry (DIR) with the [employer] (ACR). RADIATION OPTIMIZATION: All CT scans at this facility use at least one of these dose optimization te chniques: automated exposure control; mA and/or kV adjustment per patient size (includes targeted exa ms where dose is matched to clinical indication); or iterative reconstruction.
[2019-06-30 18:21] LABS: Bilirubin Negative (Negative); Blood Large (Negative); Clarity Cloudy (Clear); Glucose Negative (Negative); Ketones Negative (Negative); Leukocyte Esterase Negative (Negative); Nitrite Negative (Negative); Specific Gravity >= 1.030 (1.005-1.025); Urobilinogen 0.2 EU/dL (Up TO 0.2); pH 6.5 (5-8)
[2019-06-30 18:22] LABS: C & S Indicated? C&S Done As Ordered; RBC >50 HPF (0-2)
[2019-06-30 18:36] LABS: Abs Immature Grans 0.01 k/cumm (0.0-0.09); Absolute Basophil Count 0.02 k/cumm (0.0-0.2); Absolute Eosinophil Count 0.07 k/cumm (0.0-0.7); Absolute Lymphocyte Count 1.61 k/cumm (1.2-3.4); Absolute Monocyte Count 0.58 k/cumm (0.11-0.7); Absolute Neutrophil Count 1.88 k/cumm (1.2-6.7); Basophils % 0.5; Eosinophils % 1.7; HCT 41.4 % (40.0-50.0); HGB 13.6 g/dL (13.5-17.5); Immature Grans % 0.2 %; Lymphocytes % 38.6; Mean Corp. HGB Concentration 32.9 g/dL (32.0-36.0); Mean Corpuscular Hemoglobin 37.1 pg (27.0-33.0); Mean Corpuscular Volume 112.8 fL (80-95); Mean Platelet Volume 10.1 fL (8.0-11.0); Monocytes % 13.9; Neutrophils % 45.1; Platelet Count 338 x1000/uL (130-400); RBC 3.67 m/cumm (4.50-6.00); RBC Distribution Width 13.7 % (11.8-14.1); White Blood Cell Count 4.17 k/cumm (4.4-10.8)
[2019-06-30 18:38] LABS: Diff Comment RBC Morph Reviewed; Macrocytosis 3+
[2019-06-30 18:52] LABS: ALT 26 U/L (16-63); AST 20 U/L (15-37); Albumin 3.6 g/dL (3.4-5.0); Alkaline Phosphatase 57 U/L (46-116); Anion Gap 2.8 mmol/L (3-11); BUN 26 mg/dL (7-18); Bilirubin, Total 0.6 mg/dL (0.2-1.0); CO2 31.2 mmol/L (21.0-32.0); CREATININE 1.28 mg/dL (0.70-1.30); Calcium 8.5 mg/dL (8.5-10.1); Chloride 106 mmol/L (98-107); Glucose 95 mg/dL (74-106); Potassium 4.5 mmol/L (3.5-5.1); Sodium 140 mmol/L (136-145); Total Protein 6.6 g/dL (6.4-8.2)
[2019-06-30] MEDS: Omnipaque 350 MG/ML 100 ML BTL IJ (19:28)
[2019-06-30] MEDS: Normal Saline - Diluent 50 ML VIAL IV (19:29)
--- NOTE | 2019-06-30 19:54 | DI.VRAD_ITS ---
PROCEDURE INFORMATION: Exam: CT Abdomen And Pelvis Without And With Contrast; Urography Exam date and time: 06/30/2019 19:13 Age: 78 years old Clinical indication: Other: Hematuria TECHNIQUE: Imaging protocol: Computed tomography of the abdomen and pelvis without and with intravenous contrast. Exam focused on the kidneys and ureters. COMPARISON: CR LEFT HIP COMPLETE \T\ AP PELVIS 07/22/2016 19:49 FINDINGS: Lungs: The lung bases appears somewhat hyperinflated. Trace pleural fluid on the right. Liver: Focal fat in the liver near the fissure for the ligamentum teres. No hepatic masses. Gallbladder and bile ducts: Normal. No calcified stones. No ductal dilation. Pancreas: Normal. No ductal dilation. Spleen: Normal. No splenomegaly. Adrenals: Normal. No mass. Kidneys and ureters: Punctate nonobstructive right nephrolithiasis. No renal masses. No hydronephrosis bilaterally. A benign-appearing left renal cyst. The no significant filling defects are identified in the ureters although these are partially opacified. No gross caliceal or renal pelvic defects. Stomach and bowel: Slightly unusual configuration of the proximal stomach, question fundoplication. The stomach is decompressed in the gastric wall is challenging to assess. Correlation with the clinical history will be helpful. Surgical clips around the GE junction. A large amount of desiccated appearing stool in the rectum with mild surrounding edema. No colitis or enteritis. No obstruction. Intraperitoneal space: Unremarkable. No free air. No significant fluid collection. Lymph nodes: Unremarkable. No enlarged lymph nodes. Vasculature: Unremarkable. No abdominal aortic aneurysm. Bladder: Approximately 10 x 5 x 9 mm filling defect, right posterior aspect of the urinary bladder on delayed imaging. An additional adjacent filling defect is suggested. Reproductive: Moderate prostatic enlargement. Bones/joints: Degenerative changes in the spine. No acute fracture or subluxation. Soft tissues: Left Bochdalek's hernia containing fat. IMPRESSION: 1. Small right-sided urinary bladder filling defects are identified on delayed imaging. These could be a source of hematuria and cystoscopy is recommended to assess possible malignancy. 2. Punctate nonobstructive right nephrolithiasis. 3. A large amount of desiccated appearing stool in the rectum with mild surrounding edema. Suggests a component of constipation with mild resulting proctitis. 4. Additional findings as described. Dictated and Authenticated by: Janet Callahan MD. Ordering:NAWAF Vizcaino MD
[2019-06-30 21:14] VITALS: BP 121/74; PULSE 62; RESP 18; O2SAT 96
--- NOTE | 2019-06-30 23:05 | NUR.NOTE ---
Nursing Note:faxed referal to emma 06/30/19
== END 2019-06-30 21:20 | disposition home or self-care (01) ==
PROVIDERS: Emergency Provider Physician Assistant; PCP Family Medicine
DX: R93.41 Abnormal radiologic findings on diagnostic imaging of renal pelvis, ureter, or bladder (principal); R31.9 Hematuria, unspecified; D47.3 Essential (hemorrhagic) thrombocythemia; J44.9 Chronic obstructive pulmonary disease, unspecified; Z87.891 Personal history of nicotine dependence; I10 Essential (primary) hypertension
CPT/HCPCS: 36415; 80053; 99285; 74178; 81003; 81015; 85025; 87086; 99284; J3490

== ENCOUNTER → 2019-07-03 13:59 | Outpatient (BNVA) | payer OTHER, SELFPAY | PROVIDERS: PCP Family Medicine; Referring Provider Family Medicine; Visit Provider Nurse Practitioner Gerontology | DX: N32.89 Other specified disorders of bladder (principal); R31.9 Hematuria, unspecified; J44.9 Chronic obstructive pulmonary disease, unspecified; I10 Essential (primary) hypertension | CPT/HCPCS: 81003; 99204; 99215 ==

== ENCOUNTER 2019-07-04 09:51 | Outpatient (CLI) | payer OTHER, SELFPAY ==
[2019-07-05 16:51] LABS: COVID-19 RT-PCR UVMMC Result Negative (Negative)
== END 2019-07-04 10:11 ==
PROVIDERS: PCP Family Medicine; Visit Provider Urology
DX: Z11.59 Encounter for screening for other viral diseases (principal)
CPT/HCPCS: U0003

== ENCOUNTER 2019-07-06 06:13 | Day surgery (SDC) | payer OTHER, SELFPAY ==
[2019-07-06 06:27] VITALS: BP 109/65; PULSE 64; RESP 16; TEMP 36.6; O2SAT 96
--- NOTE | 2019-07-06 06:42 | W.PM.HP.N ---
Date of service: 07/06/19 Time of Service: 06:42 Assessment and Plan Assessment and plan (1) Hematuria: Status: Acute Assessment and plan: We will move ahead with cystoscopy. If any bladder tumor is visible, we will be prepared to resect and cauterize the affected site. If a large tumor is identified and postoperative bleeding is expected, we may need to keep him overnight for bladder irrigation. History of Present Illness History of Present Illness Chief Complaint: Gross hematuria Narrative: This is a 78-year-old gentleman who presented to the emergency room with gross hematuria. He has been passing some clots. His work-up to date has included a CT urogram which showed possible filling defects on the lateral bladder wall. He presents now for cystoscopy with possible transurethral resection of any visible bladder tumor. He has not seen any gross hematuria since yesterday. Review of Systems Narrative: No fevers or chills No vision change or dysphasia No diabetes or thyroid No hemoptysis. SOB related to COPD No chest pain or palpitations Hx GERD. No hepatitis, ulcers, jaundice, diarrhea or constipation No seizures, strokes or peripheral neuropathy Hx thrombocythemia No gout. Chronic neck and low back pain. [facility] Social History Smoking/Tobacco Use Status: Former Tobacco Use Quit Date: 02/07/05 Second Hand Exposure: No Alcohol Intake: never Substance use type: does not use Caregiver/Support person: Yes Household members: spouse Housing: house Pets and animals: Yes Pets and animals: cat(s) Sexually active: Yes Do you think of yourself as: straight/heterosexual Current gender identity: male Duration: 15-30 minutes/day Frequency: 1-2 times per week Mayuri/Cheondoism: Religious Agree to transfusion: No Additional Social history: answered questions for pt. Meds Home Medications and Allergies Home Medications Medication Instructions Recorded Confirmed Type aspirin 81 mg PO DAILY tab-cap 02/10/16 07/06/19 History docusate sodium 100 mg capsule 100 mg PO DAILY PRN 11/15/17 07/06/19 History escitalopram oxalate 10 mg tablet 10 mg PO DAILY #90 tab-cap 09/18/18 07/06/19 Rx hydroxyurea 500 mg capsule 1,000 mg PO DAILY #180 tab 09/19/18 07/06/19 Rx simvastatin 20 mg tablet 20 mg PO HS #90 tab-cap 03/06/19 07/06/19 Rx Allergies Allergy/AdvReac Type Severity Reaction Status Date / Time cyclobenzaprine HCl AdvReac CONFUSION Unverified 07/06/19 06:20 [From Flexeril] Exam Narrative Exam Narrative: He is in no current distress. He does not appear septic or toxic. His vital signs are documented elsewhere His lungs are clear Cardiac exam shows a regular rate and rhythm His abdomen is soft with no mass He is awake and alert Results Last Vital Signs Temp 36.6 C 07/06/19 06:27 Pulse 64 07/06/19 06:27 Resp 16 07/06/19 06:27 BP 109/65 07/06/19 06:27 Pulse Ox 96 07/06/19 06:27 COVID-19 Screening In the past 14 days, have you traveled outside of [place] or [place]?: NO
[2019-07-06] MEDS: Lactated Ringers 1,000 ML 80 ML IV (06:55)
[2019-07-06] MEDS: ceFAZolin 1 GM/50 ML BAG IVPB (07:50)
[2019-07-06] MEDS: Lidocaine 2% Jelly 6 ML SYR (08:14)
--- NOTE | 2019-07-06 08:15 | BLADDER_PTH ---
PATIENT: Sy Pritchett LOC: [facility] U#:[id number] AGE/SX: 78/M ROOM: RE07/06/[address]: Terrance Flores MD : 1940 BED: DIS: 07/06/2019 SPEC #: [id number] RECD: 07/06/19 14:23 STATUS: ALAN REQ #: [id number] BALTAZAR: 07/06/19 08:[address]: Terrance Flores DEPT: Surgical Specimen RECD BY: Jackie Lin ENTERED: 07/06/19 14:23 SP TYPE: Bladder OTHR DR: Iris Mejia MD, DC Tissues: 1 - BLADDER CURRETTINGS Procedures: GROSS AND MICRO LEVEL 5 Comments: [id number]
--- NOTE | 2019-07-06 08:34 | PDOC.DSDIS_ITS ---
Discharge Plan Disposition Patient Disposition: HOME Condition: Stable Discharge Details Reason For Visit: BLADDER MASS / GROSS HEMATURIA Admit Date/Time: 07/06/19 06:13 Admit Provider: Terrance Flores Attending Provider: Terrance Flores Primary Care Provider: Iris Mejia [facility] Course Hospital Course: The patient was brought to the operating room on 07/06/2019. He underwent cystoscopy and we identified papillary lesions within the bladder. We resected all visible bladder tumor. We placed a Bull catheter to allow his bladder to drain and healed, but we decided we would not require continuous bladder irrigation. He will be discharged to home with his Bull catheter in place. Home Meds and New Rx's Prescriptions: New phenazopyridine [Pyridium] 200 mg tablet 200 mg PO TID PRN (Reason: pain) Qty: 15 RF: 0 No Action aspirin 81 MG tablet,chewable 81 mg PO DAILY RF: 0 escitalopram oxalate [Lexapro] 10 mg tablet 10 mg PO DAILY Qty: 90 RF: 12 hydroxyurea [Hydrea] 500 mg capsule 1,000 mg PO DAILY Qty: 180 RF: 12 simvastatin [Zocor] 20 mg tablet 20 mg PO HS Qty: 90 RF: 4 docusate sodium [Colace] 100 mg capsule 100 mg PO DAILY PRNRF: 0 Discharge Instructions Additional Instructions: Bull to gravity (leg bag or large drainage bag) F/U early next week for catheter removal F/U appt 7 to 14 days for path results Activity:: Activity as Tolerated Equipment/Supplies:: bull to gravity Diet:: As Tolerated Discharge Orders Discharge Orders: Discharge Order (Routine); Ordered 07/06/19 Ordered By: Terrance Flores DS: Diagnosis Discharge Diagnosis (1) Hematuria: Status: Acute
--- NOTE | 2019-07-06 08:41 | ROE_ITS ---
Date of service: 07/06/19 Time of Service: 08:41 Operative Note Operative Note DATE OF PROCEDURE: 07/06/19 PRE-OP DIAGNOSIS: Hematuria POST-OP DIAGNOSIS: other Same with bladder tumor PROCEDURE: Cystoscopy, transurethral resection of bladder tumor (2 to 5 cm) SURGEON: Terrance Flores ANESTHESIA: other (General without intubation) ESTIMATED BLOOD LOSS: 100 PATHOLOGY: other (Bladder tumor) COMPLICATIONS: None Patient was transported to: PACU Patient's condition: stable Indications: This is a 78-year-old gentleman who presented to the emergency room with gross hematuria and clots. His evaluation included a CT urogram which showed no solid renal masses and no hydronephrosis. There were filling defects present within the bladder. He presents now for cystoscopy with possible transurethral resection Findings: Papillary lesions at the right bladder neck and right bladder wall Procedure Description: The patient was given IV antibiotics. He is brought to the operating room on 07/06/2019. After successful induction of general anesthesia without intubation, he was placed in the dorsal lithotomy position. His genitalia was prepped and draped. A 22 Canadian rigid cystoscope was passed through the urethra into the bladder. The urethra and bladder were inspected with the 30 degree lens. The pendulous bulbous and membranous urethra was appeared normal. The prostatic urethra was diffusely enlarged with lateral lobe enlargement and a prominent median lobe. No papillary lesions were seen on the prostate itself. Just within the bladder neck on the right side of the bladder, papillary lesions were visualized. Photos of these lesions were taken and placed in the patient's chart. These lesions extended from approximately the 7 o'clock position up to the 10 o'clock position. The area in question appeared less papillary and more diffusely erythematous as we moved up the lateral wall of the bladder. 1 small clot was seen floating within the bladder. No additional lesions were seen. Both ureteral orifice ease appeared normal and no blood was seen coming from either side. We then removed the cystoscope and placed a 24 Canadian resectoscope sheath through the urethra into the bladder. We used bipolar cautery and an [employer] resectoscope to resect all visible abnormal tissue. Due to the depth of the resection, we elected not to instill mitomycin. The base of the resection site was cauterized. We passed an 18 Canadian Garcia through the urethra into the bladder. We inflated the catheter balloon 10 cc of sterile water. We hand irrigated the catheter and the irrigant was clear. The catheter was hooked to gravity drainage. I then passed a belladonna and opium suppository into the patient's rectum to help with postop discomfort. He tolerated this procedure well. The estimated blood loss was 100 cc.
[2019-07-06 08:42] VITALS: BP 125/72; PULSE 68; RESP 22; TEMP 36.4; O2SAT 94
[2019-07-06 08:47] VITALS: BP 124/91; PULSE 65; RESP 23; TEMP 36.4; O2SAT 95
[2019-07-06 08:52] VITALS: BP 123/76; PULSE 65; RESP 18; TEMP 36.4; O2SAT 96
[2019-07-06 08:57] VITALS: BP 125/80; PULSE 65; RESP 24; TEMP 36.4; O2SAT 95
[2019-07-06] MEDS: Phenazopyridine 200 MG TAB PO (09:42)
[2019-07-06 09:43] VITALS: BP 122/85; PULSE 55; RESP 16; TEMP 36.4; O2SAT 96
== END 2019-07-06 11:28 | disposition home or self-care (01) ==
LOC: PDS 08:37 → DSU 12:23
PROVIDERS: PCP Family Medicine; Visit Provider Urology
PROC: 0TJB8ZZ Inspection of Bladder, Via Natural or Artificial Opening Endoscopic (ICD-10-PCS; CPT 52000; principal; 2019-07-06 07:30)
DX: R31.0 Gross hematuria (principal)
CPT/HCPCS: 52235; NC; 88307; J0690

== ENCOUNTER → 2019-07-09 07:56 | Outpatient (BNVA) | payer OTHER, SELFPAY | PROVIDERS: PCP Family Medicine; Referring Provider Family Medicine; Visit Provider Nurse Practitioner Gerontology | DX: D49.4 Neoplasm of unspecified behavior of bladder (principal); J44.9 Chronic obstructive pulmonary disease, unspecified; Z46.6 Encounter for fitting and adjustment of urinary device; I10 Essential (primary) hypertension; Z87.891 Personal history of nicotine dependence | CPT/HCPCS: 99213; 99214 ==

== ENCOUNTER → 2019-07-19 14:57 | Outpatient (BNVA) | payer OTHER, SELFPAY | PROVIDERS: PCP Family Medicine; Referring Provider Family Medicine; Visit Provider Urology | DX: D49.4 Neoplasm of unspecified behavior of bladder (principal) | CPT/HCPCS: 99213 ==

== ENCOUNTER 2019-09-21 04:25 | Outpatient (CLI) | payer OTHER, SELFPAY ==
[2019-09-21 12:04] LABS: Abs Immature Grans 0.01 10^3/uL (0.0-0.06); Absolute Basophil Count 0.02 10^3/uL (0.0-0.2); Absolute Eosinophil Count 0.07 10^3/uL (0.0-0.7); Absolute Lymphocyte Count 1.47 10^3/uL (1.2-3.4); Absolute Neutrophil Count 1.92 10^3/uL (1.2-6.7); Basophils % 0.5; Eosinophils % 1.8; HCT 41.1 % (40.0-50.0); HGB 13.6 g/dL (13.5-17.5); Immature Grans % 0.3; Lymphocytes % 36.8; MCH 37.6 pg (27.0-33.0); MCHC 33.1 % (32.0-36.0); MCV 113.5 fL (80-95); MPV 10.5 fL (8.0-11.0); Monocytes % 12.5; Neutrophils % 48.1; Nucleated RBC 0 %; Platelet Count 359 10^3/uL (130-400); RBC 3.62 10^6/uL (4.36-5.78); RDW 13.3 % (11.8-14.1); RDW-SD 55.8 fL; WBC 3.99 10^3/uL (4.4-10.8)
[2019-09-21 14:09] LABS: ALT 29 U/L (16-63); AST 24 U/L (15-37); Albumin 3.6 g/dL (3.4-5.0); Alkaline Phosphatase 58 U/L (46-116); Anion Gap 7.5 mmol/L (3-11); BUN 23 mg/dL (7-18); Bilirubin, Total 0.7 mg/dL (0.2-1.0); CO2 27.5 mmol/L (21.0-32.0); Calcium 8.9 mg/dL (8.5-10.1); Calculated LDL 67 mg/dL (<100); Chloride 107 mmol/L (98-107); Cholesterol 137 mg/dL (<200); Glucose 79 mg/dL (74-106); HDL Cholesterol 52 mg/dL (40-60); Potassium 4.6 mmol/L (3.5-5.1); Sodium 142 mmol/L (136-145); Total Protein 6.4 g/dL (6.4-8.2); Triglyceride 92 mg/dL (<150)
== END 2019-09-21 04:45 ==
PROVIDERS: PCP Family Medicine; Visit Provider Internal Medicine Hematology & Oncology
DX: I25.10 Atherosclerotic heart disease of native coronary artery without angina pectoris (principal); D47.3 Essential (hemorrhagic) thrombocythemia
CPT/HCPCS: 36415; 80053; 80061; 85025

== ENCOUNTER → 2019-10-19 12:50 | Outpatient (BNVA) | payer OTHER, SELFPAY | PROVIDERS: PCP Family Medicine; Referring Provider Family Medicine; Visit Provider Urology | DX: D49.4 Neoplasm of unspecified behavior of bladder (principal); J44.9 Chronic obstructive pulmonary disease, unspecified; I10 Essential (primary) hypertension; I25.2 Old myocardial infarction; R15.9 Full incontinence of feces; K57.30 Diverticulosis of large intestine without perforation or abscess without bleeding; N48.9 Disorder of penis, unspecified | CPT/HCPCS: 52000; 81003; 99213 ==

== ENCOUNTER 2019-10-19 13:34 | Outpatient (REF) | payer OTHER, SELFPAY ==
--- NOTE | 2019-10-19 13:00 | PAPNONF_PTH ---
PATIENT: Sy Pritchett LOC: [facility] U#:[id number] AGE/SX: 79/M ROOM: RE10/19/[address]: Terrance Flores MD : 1940 BED: DIS: 10/19/2019 SPEC #: [id number] RECD: 10/19/19 16:58 STATUS: ALAN REJackie #: [id number] BALTAZAR: 10/19/19 13:[address]: Terrance Flores DEPT: [facility] Cytology RECD BY: Jackie Lin ENTERED: 10/19/19 16:59 SP TYPE: ARIADNA HALL DR: Iris Mejia MD, DC Tissues: 1 - BODY FLUID CYTO(SPUTUM/URINE)[facility] Procedures: BODY FLUID CYTO(URINE/SPUTUM) Comments: [id number] (TOTAL VOLUME = 40 ml's) (40 ml's URINE & 40 ml's CYTOLYT ADDED)
== END 2019-10-19 13:54 ==
LOC: LBN 13:34
PROVIDERS: PCP Family Medicine; Visit Provider Urology
DX: C67.9 Malignant neoplasm of bladder, unspecified (principal); R82.89 Other abnormal findings on cytological and histological examination of urine
CPT/HCPCS: 88104

== ENCOUNTER → 2020-01-08 09:21 | Outpatient (BNVA) | payer OTHER, SELFPAY | PROVIDERS: PCP Family Medicine; Visit Provider Urology | DX: D49.4 Neoplasm of unspecified behavior of bladder (principal); I10 Essential (primary) hypertension | CPT/HCPCS: 52000; 99213 ==

== ENCOUNTER 2020-01-08 16:37 | Outpatient (REF) | payer OTHER, SELFPAY ==
--- NOTE | 2020-01-08 10:30 | PAPNONF_PTH ---
PATIENT: Sy Pritchett LOC: [facility] U#:[id number] AGE/SX: 79/M ROOM: RE01/08/[address]: Terrance Flores MD : 1940 BED: DIS: 01/08/2020 SPEC #: [id number] RECD: 01/08/20 18:15 STATUS: [facility] REQ #: [id number] BALTAZAR: 01/08/20 10:[address]: Terrance Flores DEPT: [facility] [place] Cytology RECD BY: Jackie Lin ENTERED: 01/08/20 18:16 SP TYPE: ARIADNA HALL DR: Iris Mejia MD, DC Tissues: 1 - BODY FLUID CYTO(SPUTUM/URINE)[facility] Procedures: BODY FLUID CYTO(URINE/SPUTUM) Comments: [id number] (TOTAL VOLUME = 100 ml'S) (50 ml's URINE & 50 ml's CYTOLYT ADDED IN 2 CONTAINERS)
== END 2020-01-08 16:57 ==
LOC: LBN 16:37
PROVIDERS: PCP Family Medicine; Visit Provider Urology
DX: C67.9 Malignant neoplasm of bladder, unspecified (principal)
CPT/HCPCS: 88104

== ENCOUNTER 2020-01-25 03:58 | Outpatient (CLI) | payer OTHER, SELFPAY ==
[2020-01-25] MEDS: Barium Sulfate 60% W/V 355 ML BTL PO (10:53)
--- NOTE | 2020-01-25 10:54 | DI.RAD_ITS ---
EXAM: RF BARIUM SWALLOW CLINICAL HISTORY: dysphagia,R13.10,HEMOPTYSIS TECHNIQUE: 2D and realtime digital imaging was performed. CONTRAST MATERIAL: Oral barium Oral water soluble contrast was administered. COMPARISON: No exams were available for comparison FINDINGS: CHEST X-RAY: The heart and pulmonary vasculature are within normal limits. The lungs are clear. No pl eural effusion or pneumothorax is present. The bones are within normal limits fo the patient's age. ESOPHAGRAM: The esophagus is patent with no evidence for erosions or strictures. At the posterior as pect in the distal esophagus, there is a raised area along the wall of the esophagus with a pool of c ontrast centrally. It lies just proximal to the hiatal hernia. This may represent an ulcer or mass. With regards to the motility, there is a normal primary stripping wave. No tertiary contractions we re noted. There is a small hiatal hernia. No gastroesophageal reflux was identified during the exami nation. IMPRESSION: Along the posterior wall of the distal esophagus just proximal to the hiatal hernia, there is a raise d area along the wall with a pool of contrast seen centrally. This may represent an ulcer or mass. Upper endoscopy should be considered for further evaluation.
== END 2020-01-25 04:18 ==
PROVIDERS: PCP Family Medicine; Visit Provider Family Medicine
DX: R13.10 Dysphagia, unspecified (principal); K44.9 Diaphragmatic hernia without obstruction or gangrene; R04.2 Hemoptysis
CPT/HCPCS: 74221; J3490

== ENCOUNTER → 2020-01-30 13:18 | Outpatient (BNVA) | payer OTHER, SELFPAY | PROVIDERS: PCP Family Medicine; Referring Provider Family Medicine; Visit Provider Surgery | DX: R13.19 Other dysphagia (principal) | CPT/HCPCS: 99212; 99213 ==

== ENCOUNTER 2020-02-11 07:58 | Outpatient (CLI) | payer OTHER, SELFPAY ==
[2020-02-12 19:36] LABS: COVID-19 RT-PCR UVMMC Result Negative (Negative)
== END 2020-02-11 08:18 ==
PROVIDERS: PCP Family Medicine; Visit Provider Urology
DX: Z11.59 Encounter for screening for other viral diseases (principal); Z01.818 Encounter for other preprocedural examination
CPT/HCPCS: U0003

== ENCOUNTER 2020-02-14 06:10 | Day surgery (SDC) | payer OTHER, SELFPAY ==
[2020-02-14] VITALS (7 sets, daily range): BP systolic 94–125; BP diastolic 64–85; PULSE 55–60; RESP 15–25; TEMP 36.4–36.6; O2SAT 94–97
[2020-02-14] MEDS: Lactated Ringers 1,000 ML 80 ML IV (06:51)
--- NOTE | 2020-02-14 06:54 | HPE_ITS ---
Date of service: 02/14/20 Time of Service: 06:54 Assessment and Plan Assessment and plan (1) Bladder neoplasm: Status: Acute Assessment and plan: For cystoscopy, fulguration of bladder tumor and instillation of Mitomycin C History of Present Illness Narrative: This is a 79-year-old gentleman who has a previous history of hem aturia. On work-up, he was found to have a filling defect in the bladder. 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 He had a negative cystoscopy and urine cytology 3 months after his initial diagnosis, but on subsequent followup cystoscopy, there did appear to be a recurrance. He presents for fulguration and instillation of Mitomycin C. He is not seeing any gross hematuria. Review of Systems Narrative: No fevers or chills No vision change or dysphasia No diabetes or thyroid dysfunction No sputum production No chest pain or palpitations No jaundice. 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 saw Miranda. Resolved with time. Thought to be secondary to brain hypoxia. Disorder of adrenal gland Diverticulosis of colon without diverticulitis colonoscopy 06/15. Dr Stanford Gonzalez GI Erosive gastroesophageal reflux disease (06/09/16) SEVERE-DR. ANTOINE 06/09/16 Esophagitis Essential thrombocythemia (03/28/12) Essential thrombocytopenia pt. states this is incorrect that he has thrombocythemia 07/04/19 Takes hydroxyurea 1000 mg daily Full incontinence of feces (08/15/17) Glaucoma Gross hematuria Hemorrhoids S/P SURGERY Herpes zoster Hiatal hernia Hiatal hernia (04/08/12) DR. ANTOINE Hip pain Hip pain History of tobacco use quit in 2005 History of tobacco use Hx of Raynaud's syndrome Per. pt. stated he was dx by Dr. 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 Coyne; neg 09/28/13 Dr. Antoine EGD - IV Sedation (06/09/16) 08/16/12 DR. ANTOINE 05/05/12 Dr. antoine; esophagitis 09/28/13 Dr. antoine H/O esophagogastroduodenoscopy 08/16/2012-Dr. Antoine; 05/05/12-Dr. Antoine; esophagitis 09/28/2013-Dr. Antoine H/O hemorrhoidectomy Hemorrhoidectomy History of esophagogastroduodenoscopy History of hemorrhoidectomy History of [place] fundoplication Dr. Schneider @ [facility] [place] Paraesophageal hernia repair (08/17/16) [facility] [place] Repair of inguinal hernia 2006 Left 2004 Right S/P endoscopy 02/07/13 upper endoscopy S/P inguinal hernia repair left-2005; right-2003 Status post inguinal hernia repair STEMI (~2005) Posterior lateral Family History Mother No problems noted. Father No problems noted. Sister Heart disease PACEMAKER Daughter No problems noted. Daughter No problems noted. Social History Smoking/Tobacco Use Status: Former Tobacco Use Quit Date: 02/07/05 Second Hand Exposure: No Smoking risk assessment performed?: Yes Alcohol Intake: never Substance use type: does not use Caregiver/Support person: Yes Household members: spouse Housing: house Pets and animals: Yes Pets and animals: cat(s) Sexually active: Yes Do you think of yourself as: straight/heterosexual Current gender identity: male Duration: 15-30 minutes/day Frequency: 1-2 times per week Mayuri/Anglican: Confucianist Agree to transfusion: No Additional Social history: answered questions for pt. Meds Home Medications and Allergies Home Medications Medication Instructions Recorded Confirmed Type aspirin 81 mg PO DAILY tab-cap 02/10/16 02/12/20 History docusate sodium 100 mg capsule 100 mg PO DAILY PRN 11/15/17 02/12/20 History escitalopram oxalate 10 mg tablet 10 mg PO DAILY #90 tab-cap 11/19/19 02/14/20 Rx hydroxyurea 500 mg capsule 1,000 mg PO DAILY #180 tab 11/27/19 02/14/20 Rx simvastatin 20 mg tablet 20 mg PO HS #90 tab-cap 11/27/19 02/14/20 Rx omeprazole magnesium 20 mg 20 mg PO DAILY 01/30/20 01/30/20 History tablet,delayed release pantoprazole 40 mg tablet,delayed 40 mg PO DAILY #30 tab 01/30/20 02/14/20 Rx release latanoprost 1 drp OPHTHALMIC (EYE) HS 02/12/20 02/14/20 History Allergies Allergy/AdvReac Type Severity Reaction Status Date / Time cyclobenzaprine HCl AdvReac CONFUSION Unverified 02/14/20 06:35 [From Flexeril] Exam Const General: cooperative and comfortable Neck Neck: supple Resp Effort & Inspection: normal respiratory effort Auscultation: clear to auscultation bilaterally Cardio Rate: regular rate Rhythm: regular rhythm GI Palpation: soft and no masses Neuro General: patient alert, patient awake and patient oriented x3 Results Last Vital Signs Temp 36.6 C 02/14/20 06:15 Pulse 57 L 02/14/20 06:15 Resp 16 02/14/20 06:15 BP 107/68 02/14/20 06:15 Pulse Ox 94 02/14/20 06:15 COVID-19 Screening Have you, or household traveled for leisure in last 14 days?: No Had IN PERSON contact w/suspected or confirmed C-19 person: No
--- NOTE | 2020-02-14 08:45 | STOM_PTH ---
PATIENT: Sy Pritchett LOC: [facility] U#:[id number] AGE/SX: 79/M ROOM: RE02/14/[address]: Terrance Flores MD : 1940 BED: DIS: 02/14/2020 SPEC #: [id number] RECD: 02/14/20 12:32 STATUS: [facility] #: [id number] BALTAZAR: 02/14/20 08:[address]: Terrance Flores DEPT: Surgical Specimen RECD BY: Jackie Lin ENTERED: 02/14/20 12:38 SP TYPE: STOMACH OTHR DR: Iris Mejia MD, DC Tissues: 1 - BIOPSY BOWEL 2 - BIOPSY BOWEL 3 - STOMACH BIOPSY 4 - STOMACH BIOPSY 5 - STOMACH BIOPSY 6 - ESOPHAGUS BIOPSY 7 - ESOPHAGUS BIOPSY 8 - ULCER DECUBITUS 9 - ESOPHAGUS BIOPSY Procedures: GROSS AND MICRO LEVEL 4 Comments: [id number]
[2020-02-14] MEDS: ceFAZolin 1 GM/50 ML BAG IVPB (08:56)
[2020-02-14] MEDS: Lidocaine 2% Jelly 6 ML SYR (09:00)
--- NOTE | 2020-02-14 09:04 | ENDO_ITS ---
Date of service: 02/14/20 Time of Service: 09:04 Endoscopy Report DATE OF PROCEDURE: 02/14/20 PRE-OP DIAGNOSIS: abnl barium swallow POST-OP DIAGNOSIS: other (lg hiatal hernia/severe esophagitis w/ ulceration/gastritis duodentisis ) SURGEON: Jenny Toro ANESTHESIA: MAC ESTIMATED BLOOD LOSS: 2 PATHOLOGY: other COMPLICATIONS: None DISPOSITION: no change PROCEDURE DESCRIPTION: After informed consent was obtained the patient was take to the procedure room and placed in a supine position. Monitors were applied and a time out was done. The patients name, date of , procedure type, allergies to medications and metal in their body was reviewed. A bite block was placed and the patient was sedated. Once sedated and comfortable the gastroscope was advanced through the oropharynx which was grossly normal into the esophagus. The proximal and mid-esophagus were nl. Patient has a large hiatal hernia. There is about half of his stomach is up in the chest. The entire stomach appears to have a mild gastritis. Biopsies done at the antrum the greater curve in the cardia portion of the fundus that is up within the chest. The scope was advanced into the stomach and through the pylorus into the 3rd portion of the duodenum. The duodenum was noted to be mild duodenitis. Biopsies were done. All specimens are retrieved and no bleeding is noted. The scope is passed into the proximal jejunum. There is a small ulcer within the jejunum. Biopsies are taken in the jejunum as well. The scope was retracted back into the stomach and biopsies were done to rule out H. pylori. The scope was retroflexed. The scope was retracted back into the esophagus and biopsies were done of the GE junction to rule out Vaughan's. The GE junction is up within the chest. He has severe esophagitis at the GE junction. There is an area that is ulcerated. There is also an area adjacent to this of chronic ulceration-has a large area of scar tissue that is healed over. Biopsies were done at the GE junction at the esophageal side, on the gastric side of the GE junction, and of the distal esophagus. There is no active bleeding noted. The scope was removed and the patient was woken up and taken back to [facility] in stable condition. Follow up: 2 wks in office.
[2020-02-14] MEDS: mitoMYcin 40 MG, Normal Saline 40 ML BLADIN (09:10)
--- NOTE | 2020-02-14 09:10 | BLADDER_PTH ---
PATIENT: Sy Pritchett LOC: [facility] U#:[id number] AGE/SX: 79/M ROOM: RE02/14/[address]: Terrance Flores MD : 1940 BED: DIS: 02/14/2020 SPEC #: [id number] RECD: 02/14/20 12:45 STATUS: [facility] REQ #: [id number] BALTAZAR: 02/14/20 09:[address]: Terrance Flores DEPT: Surgical Specimen RECD BY: Jackie Lin ENTERED: 02/14/20 12:46 SP TYPE: Bladder OTHR DR: Iris Mejia MD, DC Tissues: 1 - BLADDER BIOPSY Procedures: GROSS AND MICRO LEVEL 4 Comments: [id number]
--- NOTE | 2020-02-14 09:12 | W.PM.DSUDISC ---
Discharge Plan Disposition Patient Disposition: HOME Condition: Stable Discharge Details Reason For Visit: surgery Attending Provider: Terrance Flores Primary Care Provider: Iris Mejia Home Meds and New Rx's Prescriptions: New pantoprazole [Protonix] 40 mg tablet,delayed release (DR/EC) 40 mg PO BID Qty: 60 RF: 12 sucralfate [Carafate] 1 gram tablet 1 g PO QACHS Qty: 120 RF: 12 Continued hydroxyurea [Hydrea] 500 mg capsule 1,000 mg PO DAILY Qty: 180 RF: 12 simvastatin [Zocor] 20 mg tablet 20 mg PO HS Qty: 90 RF: 4 escitalopram oxalate [Lexapro] 10 mg tablet 10 mg PO DAILY Qty: 90 RF: 12 docusate sodium [Colace] 100 mg capsule 100 mg PO DAILY PRNRF: 0 latanoprost 0.005 % drops 1 drp ophthalmic (eye) HS RF: 0 Discontinued omeprazole magnesium [Prilosec OTC] 20 mg tablet,delayed release (DR/EC) 20 mg PO DAILY RF: 0 pantoprazole [Protonix] 40 mg tablet,delayed release (DR/EC) 40 mg PO DAILY Qty: 30 RF: 12 aspirin 81 MG tablet,chewable 81 mg PO DAILY RF: 0 Discharge Instructions Additional Instructions: Followup with Mark 1 week to review surgical pathology - timing of his next cystoscopy will depend on the pathology Findings:duodentitis/gastritis/Lg hiatal hernia/severe esophagitis and ulcer in esophagus. Biopsy were taken. Does not look like a cancer. -stop ASA. -Continue with lifestyle modifications: no alcohol, tobacco products, Aspirin or NSAID's (ibuprofen, Motrin, Naprosyn, aleve, etc), soda pop/any carbonated beverages, caffeine (including tea & chocolate), and acidic foods, (tomatoes, citrus, onions, peppermints) or fatty foods, for two weeks. Do not lie down for 30 minutes after eating, and do not eat 2 hours prior to bedtime. Avoid wearing tight fitting clothing/ belts -no NSAID's for 6wks -increase protonix to twice a day. -new Rx for carafate 30mins prior to meals and at bedtime. Can cut the tablet (it is large), or dissolve in water and drink as a liquid. Follow up:Dr. Toro in 2 wks Please call if you develop: fevers >101.5 Nausea or Vomiting Abdominal pain that is not transient DAY SURGERY UNIT POST endo INSTRUCTIONS 1. Because there will be medication in your system for the next 24 hours, you may feel a little sleepy. Your coordination will be affected. Therefore: a. Do not drive or operate dangerous equipment for 24 hours. b. Do not drink alcohol beverages for 24 hours (not even beer). c. Plan to go home and rest for the day. 2. Generally there are no restrictions on your activity after a day or so has gone by, but you may feel a bit fatigued for a few days. 3 After you arrive home you may have a light meal and return to a normal diet as you can tolerate it without feeling sick to your stomach. 4. After surgery, you may feel pain or discomfort. This should be only transient, but if it persists please contact your doctor. 5. If there are any questions regarding the findings of your procedure, please feel free to contact your doctor. 6. If you are unable to contact your doctor with a problem, contact the hospital at [phone]. 7. Continue all your regular medications unless directed otherwise. I understand the above instructions and have no questions. Signature of Patient or Responsible Adult Escort Date/Time Name of Responsible Adult Escort Signature of Nurse Date/Time Activity:: Activity as Tolerated Shower/Bathe:: 24 hours Diet:: As Tolerated Discharge Orders Discharge Orders: Discharge Order (Routine); Ordered 02/14/20 Ordered By: Jenny Toro DS: Diagnosis Discharge Diagnosis (1) Bladder neoplasm: Status: Acute (2) Duodenitis: Status: Acute (3) Gastritis: Status: Acute (4) Hiatal hernia: Status: Chronic (5) Erosive esophagitis: Status: Acute (6) Esophageal ulcer without bleeding: Status: Acute
--- NOTE | 2020-02-14 09:25 | ROE_ITS ---
Date of service: 02/14/20 Time of Service: 09:26 Operative Note Operative Note DATE OF PROCEDURE: 02/14/20 PRE-OP DIAGNOSIS: Bladder tumor POST-OP DIAGNOSIS: same (lg hiatal hernia/severe esophagitis w/ ulceration/gastritis duodentisis ) PROCEDURE: cystoscopy, bladder biopsy, fulguration of bladder tumor, instillation of Mitomycin C into bladder SURGEON: Terrance Flores ANESTHESIA: other (general without intubation) ESTIMATED BLOOD LOSS: 10 PATHOLOGY: other (bladder biopsy) COMPLICATIONS: None Patient was transported to: PACU Patient's condition: stable Indications: This is a 79-year-old gentleman who has a history of urothelial cell carcinoma of the bladder. On recent surveillance cystoscopy, he was found to have a small recurrence on the left posterior bladder wall. He presents now for biopsy/fulguration as well as instillation of mitomycin-C into the bladder. Findings: small papillary lesion left bladder wall Procedure Description: The patient was brought to the operating room on 02/14/2020. After successful induction of general anesthesia without intubation, and after completion of upper endoscopy, he was positioned in the dorsal lithotomy position. His genitalia is prepped and draped. 2% Xylocaine jelly was instilled into the urethra to act as a local anesthetic. A 22 [place]ican rigid cystoscope was passed through the urethra into the bladder. The urethra and bladder were inspected with a 30 degree lens. The pendulous, bulbous and membranous urethra was appeared normal with no stricture. The prostatic urethra showed lateral lobe enlargement but no mucosal abnormalities. The bladder neck was entered and the bladder mucosa was inspected. The pr eviously identified papillary lesion was again seen on the left posterior lateral bladder wall. The area in question measured less than 2 cm in largest dimension. No additional bladder tumors were seen. Using cold cup biopsy forceps, the papillary lesion was biopsied and the tissue was sent to pathology for permanent section. I then used a bipolar Bugbee electrode to cauterize the biopsy site. Once hemostasis had been obtained, a 16 [place] Garcia catheter was passed through the urethra into the bladder. The catheter balloon was inflated with 10 cc of sterile water. The bladder was drained and a solution containing 40 mg of mitomycin-C mixed in 40 mL of saline was instilled into the bladder. The catheter was clamped and the solution will be left in the bladder for 1 to 2 hours. A belladonna and opium suppository was then placed in the patient's rectum. The patient tolerated this procedure well with no complications.
[2020-02-14] MEDS: Pantoprazole 40 MG VIAL IVP (10:40)
[2020-02-14] MEDS: Phenazopyridine 200 MG TAB PO (10:40)
== END 2020-02-14 12:50 | disposition home or self-care (01) ==
PROVIDERS: Surgery; PCP Family Medicine; Visit Provider Urology
PROC: 0TBB8ZX Excision of Bladder, Via Natural or Artificial Opening Endoscopic, Diagnostic (ICD-10-PCS; CPT 52204; principal; 2020-02-14 07:30)
PROC: 0DJ68ZZ Inspection of Stomach, Via Natural or Artificial Opening Endoscopic (ICD-10-PCS; CPT 43235; 2020-02-14 07:30)
DX: R93.3 Abnormal findings on diagnostic imaging of other parts of digestive tract (principal); K29.80 Duodenitis without bleeding; K21.9 Gastro-esophageal reflux disease without esophagitis; K44.9 Diaphragmatic hernia without obstruction or gangrene; K22.10 Ulcer of esophagus without bleeding; K29.70 Gastritis, unspecified, without bleeding; C67.9 Malignant neoplasm of bladder, unspecified
CPT/HCPCS: 52234; 43239; 51720; 88305; NC; 88304; J0690; J2001; J9280

== ENCOUNTER → 2020-02-26 14:57 | Outpatient (BNVA) | payer OTHER, SELFPAY | PROVIDERS: PCP Family Medicine; Referring Provider Family Medicine; Visit Provider Urology | DX: C67.9 Malignant neoplasm of bladder, unspecified (principal); Z98.890 Other specified postprocedural states | CPT/HCPCS: 99213 ==

== ENCOUNTER → 2020-02-28 12:47 | Outpatient (BNVA) | payer OTHER, SELFPAY | PROVIDERS: PCP Family Medicine; Referring Provider Family Medicine; Visit Provider Surgery | DX: Z48.89 Encounter for other specified surgical aftercare (principal) | CPT/HCPCS: 99212 ==

== ENCOUNTER 2020-03-27 02:51 | Outpatient (CLI) | payer OTHER, SELFPAY ==
[2020-03-27 12:31] LABS: Abs Immature Grans 0.02 10^3/uL (0.0-0.06); Absolute Basophil Count 0.03 10^3/uL (0.0-0.2); Absolute Eosinophil Count 0.11 10^3/uL (0.0-0.7); Absolute Lymphocyte Count 1.31 10^3/uL (1.2-3.4); Absolute Monocyte Count 0.75 10^3/uL (0.1-0.8); Basophils % 0.6; Eosinophils % 2.1; HCT 43.3 % (40.0-50.0); HGB 14.4 g/dL (13.5-17.5); Immature Grans % 0.4; Lymphocytes % 25.6; MCH 38.1 pg (27.0-33.0); MCHC 33.3 % (32.0-36.0); MCV 114.6 fL (80-95); MPV 10.5 fL (8.0-11.0); Monocytes % 14.6; Neutrophils % 56.7; Nucleated RBC 0 %; Platelet Count 343 10^3/uL (130-400); RBC 3.78 10^6/uL (4.36-5.78); RDW 13.4 % (11.8-14.1); RDW-SD 57.4 fL; WBC 5.12 10^3/uL (4.4-10.8)
[2020-03-27 12:39] LABS: Diff Comment RBC Morph Reviewed
[2020-03-27 12:43] LABS: Macrocytosis 2+
[2020-03-27 14:04] LABS: ALT 22 U/L (16-63); AST 20 U/L (15-37); Albumin 3.7 g/dL (3.4-5.0); Alkaline Phosphatase 81 U/L (46-116); Anion Gap 7.6 mmol/L (3-11); BUN 27 mg/dL (7-18); Bilirubin, Total 0.7 mg/dL (0.2-1.0); CO2 29.4 mmol/L (21.0-32.0); CREATININE 1.2 mg/dL (0.70-1.30); Calcium 8.9 mg/dL (8.5-10.1); Chloride 106 mmol/L (98-107); Estimated GFR 58.56 (mL/min/1.73m2); Glucose 80 mg/dL (74-106); Sodium 143 mmol/L (136-145); Total Protein 6.8 g/dL (6.4-8.2)
== END 2020-03-27 02:52 | disposition home or self-care (01) ==
LOC: LBO 02:51
PROVIDERS: PCP Family Medicine; Visit Provider Internal Medicine Hematology & Oncology
DX: D47.3 Essential (hemorrhagic) thrombocythemia (principal); D69.3 Immune thrombocytopenic purpura
CPT/HCPCS: 36415; 80053; 85025

== ENCOUNTER 2020-05-25 19:04 | Emergency (ER) | payer OTHER, SELFPAY ==
[2020-05-25 19:13] VITALS: BP 118/63; PULSE 78; RESP 16; TEMP 36.5; O2SAT 97
--- NOTE | 2020-05-25 19:18 | W.ED.GENAD ---
Discharge Plan Disposition Patient Disposition: HOME Condition: Stable Discharge Details Clinical Impression: Pain in right shoulder Primary Care Provider: Iris Mejia ED Provider: Desmond Suh Home Meds and New Rx's Prescriptions: Continued hydroxyurea [Hydrea] 500 mg capsule 1,000 mg PO DAILY Qty: 180 RF: 12 simvastatin [Zocor] 20 mg tablet 20 mg PO HS Qty: 90 RF: 4 escitalopram oxalate [Lexapro] 10 mg tablet 10 mg PO DAILY Qty: 90 RF: 12 docusate sodium [Colace] 100 mg capsule 100 mg PO DAILY PRNRF: 0 latanoprost 0.005 % drops 1 drp ophthalmic (eye) HS RF: 0 pantoprazole [Protonix] 40 mg tablet,delayed release (DR/EC) 40 mg PO BID Qty: 60 RF: 12 Discharge Instructions Instructions: Shoulder Pain (ED) Additional Instructions: At this time your x-rays negative for fracture. Please use the sling as needed for comfort. Please take Tylenol and Motrin as needed for pain. You can take one of the [place] pain pills as needed for breakthrough pain. Please make sure to have your help move your shoulder multiple times throughout the day to keep it limber to prevent frozen shoulder syndrome. Please follow-up with orthopedics on an outpatient basis. If you notice any worsening of your symptoms, or any new symptoms such as vomiting, diarrhea, fever, chills, shortness of breath, chest pain, numbness, weakness, or fainting , please return immediately to the emergency department for reevaluation. Please follow up with your primary care provider as soon as possible for reassessment and reevaluation. As always, it was a pleasure participating in your medical care today. Referrals: Iris Mejia MD, [place] [Primary Care Provider] - Juan Luis Cabrera MD [ [facility] STAFF PHYSICIAN] - Mikel Rodriguez MD [ [facility] STAFF PHYSICIAN] - Medical Decision Making <Taylor Vines DO - Last Filed: 05/25/20 19:54> 79-year-old male presents with right shoulder pain after fall with direct blunt injury to his right shoulder and upper arm. Patient has tenderness to palpation to the right shoulder with inability to lift his right upper extremity. His right thumb is normal for flexion without pain or deformity. Consider right shoulder dislocation versus proximal humerus fracture. Will give a dose of ibuprofen and oxycodone, place a sling and refer for x-rays. Case endorsed Dr. Suh to follow-up on imaging and final disposition. Medical Records Medical records reviewed: Yes I reviewed the patient's medical records. <Desmond Suh DO - Last Filed: 05/26/20 03:21> Patient was signed out to me by my colleague Dr. Taylor Vines. Pending imaging for the time of signout. Please refer to HPI, physical exam assessment and plan. X-ray results are negative for acute process or fracture per virtual radiology. There is some calcific tendinopathy in the right shoulder, but no acute fracture. Personal repeat assessment demonstrates no reproducible tenderness on palpation of the humeral head, or the shoulder. The patient actively engages his muscle in the right shoulder he does have notable pain, however he demonstrates fairly good range of motion with passive movement, albeit slowly, of the shoulder. Suspect chronic tendinopathy, and potential rotator cuff injury. At this time with no acute fracture patient can be discharged home. Will give sling for home comfort. Discussed importance of continue mobility of the shoulder to prevent frozen shoulder syndrome. With the nature of the patient's pain I do feel that orthopedic follow-up is reasonable for further evaluation of the shoulder and potential additional imaging. We will place a orthopedic referral. Will give [place] to go as needed for pain, recommend Tylenol Motrin. Discussed red flags which to return. I have extensively reviewed the treatment plan and discharge instructions with the patient and their family. I have addressed all patient concerns at this time. The patient and family was made aware of what symptoms to monitor for that would warrant a return to the emergency department. Discussed the plan with the patient and family, they demonstrate verbal understanding and agreement with our assessment and plan at this time. The documentation in this chart was dictated using [employer] dictation software. Please excuse any dictation errors. FINDINGS: Lungs: Unremarkable. No consolidation. Pleural spaces: No pleural effusion. No pneumothorax. Heart/Mediastinum: No cardiomegaly. Bones/joints: There is no acute osseous abnormality. IMPRESSION: No acute findings. Thank you for allowing us to participate in the care of your patient. Dictated and Authenticated by: Jean Bernard DO 05/25/2020 9:19 PM Eastern Time ([place] & [place]) FINDINGS: Bones/joints: There is no acute fracture or dislocation. There is mild calcific tendinopathy of the right shoulder . 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 Lungs: Visualized right lung is clear. Soft tissues: Normal. IMPRESSION: No acute fracture or dislocation Thank you for allowing us to participate in the care of your patient. Dictated and Authenticated by: Jean Bernard DO 05/25/2020 9:15 PM Eastern Time ([place] & [place]) HPI <Taylor Vines DO - Last Filed: 05/25/20 19:54> General Mode of arrival: wheelchair. Date/Time Provider Initiated Documentation: 05/25/20 19:05. Limitations to Documentation: no limitations. Information obtained by: patient. HPI Narrative: Patient is a 79-year-old male who presents with right shoulder pain after fall approximately 90 minutes ago. Patient states he was having a barbecue outside on his deck when he turned and slipped and hit his right shoulder on the back. He is complaining of pain in his right shoulder. He also complained of pain in his right thumb initially but he denies this at present. He has not taken any medication for pain. He denies head injury. He denies any other injuries. Related Data Home Medications Medication Instructions Recorded Confirmed docusate sodium 100 mg capsule 100 mg PO DAILY PRN 11/15/17 05/25/20 escitalopram oxalate 10 mg tablet 10 mg PO DAILY #90 tab-cap 11/19/19 05/25/20 hydroxyurea 500 mg capsule 1,000 mg PO DAILY #180 tab 11/27/19 05/25/20 simvastatin 20 mg tablet 20 mg PO HS #90 tab-cap 11/27/19 05/25/20 latanoprost 1 drp OPHTHALMIC (EYE) HS 02/12/20 05/25/20 pantoprazole [Protonix] 40 mg PO BID #60 tab 02/14/20 05/25/20 Previous Rx's Medication Instructions Recorded escitalopram oxalate 10 mg tablet 10 mg PO DAILY #90 tab-cap 11/19/19 hydroxyurea 500 mg capsule 1,000 mg PO DAILY #180 tab 11/27/19 simvastatin 20 mg tablet 20 mg PO HS #90 tab-cap 11/27/19 pantoprazole [Protonix] 40 mg PO BID #60 tab 02/14/20 Allergies Allergy/AdvReac Type Severity Reaction Status Date / Time cyclobenzaprine HCl AdvReac CONFUSION Verified 05/25/20 19:16 [From Flexeril] General Stated Complaint: Orthopedic DAWN: 4 Review of Systems <Taylor Vines DO - Last Filed: 05/25/20 19:54> All systems reviewed & are unremarkable except as noted in HPI and below PFSH <Taylor Vines DO - Last Filed: 05/25/20 19:54> Medical History (Updated 05/25/20 @ 19:54 by Taylor Vines DO) Cardiac arrest (~2005) 2005 Chronic obstructive lung disease FEV1 70% 02/20 COPD (chronic obstructive pulmonary disease) Disorder of adrenal gland Hypofunction; 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 saw Miranda. Resolved with time. Thought to be secondary to brain hypoxia. Disorder of adrenal gland Diverticulosis of colon without diverticulitis colonoscopy 06/15. Dr Stanford Gonzalez GI Erosive gastroesophageal reflux disease (06/09/16) SEVERE-DR. ANTOINE 06/09/16 Esophagitis Essential thrombocythemia (03/28/12) Essential thrombocytopenia pt. states this is incorrect that he has thrombocythemia 07/04/19 Takes hydroxyurea 1000 mg daily Full incontinence of feces (08/15/17) Glaucoma Gross hematuria Hemorrhoids S/P SURGERY Herpes zoster Hiatal hernia Hiatal hernia (04/08/12) DR. ANTOINE Hip pain Hip pain History of tobacco use quit in 2005 History of tobacco use Hx of Raynaud's syndrome Per. pt. stated he was dx by Dr. 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 Coyne; neg 09/28/13 Dr. Antoine EGD - IV Sedation (06/09/16) 08/16/12 DR. ANTOINE 05/05/12 Dr. antoine; esophagitis 09/28/13 Dr. antoine H/O esophagogastroduodenoscopy 08/16/2012-Dr. Antoine; 05/05/12-Dr. Antoine; esophagitis 09/28/2013-Dr. Antoine H/O hemorrhoidectomy Hemorrhoidectomy History of esophagogastroduodenoscopy History of hemorrhoidectomy History of [place] fundoplication Dr. Schneider @ [facility] 2016 Paraesophageal hernia repair (08/17/16) [facility] Repair of inguinal hernia 2006 Left 2004 Right S/P endoscopy 02/07/13 upper endoscopy S/P inguinal hernia repair left-2005; right-2003 Status post inguinal hernia repair STEMI (~2005) Posterior lateral Family History (Updated 05/23/20 @ 14:30 by Kajal Soliz) Mother No problems noted. Sister Heart disease PACEMAKER Social History (Updated 05/23/20 @ 14:30 by Kajal Soliz) Smoking/Tobacco Use Status: Former Tobacco Use Quit Date: 02/07/05 Second Hand Exposure: No Smoking risk assessment performed?: Yes Alcohol Intake: never Substance use type: does not use Caregiver/Support person: No Household members: spouse Housing: house Communication Needs: Corrective Lenses Pets and animals: No Sexually active: Yes Do you think of yourself as: straight/heterosexual Current gender identity: male Duration: 15-30 minutes/day Frequency: 1-2 times per week Mayuri/Restorationist: Confucianism Agree to transfusion: No Seatbelt use: always Drive intox or ride w/intox 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 Exam <Taylor Vines DO - Last Filed: 05/25/20 19:54> Const General: cooperative and no acute distress HENMT Head: normal to inspection Face and sinus: normal facial exam Eyes General: appearance normal, both eyes and all related structures EOM: EOM intact bilaterally Neck Neck: normal visual inspection and No submandibular swelling Lymphatic: no lymphadenopathy noted Resp Effort & Inspection: normal respiratory effort and able to speak in complete sentences Auscultation: clear to auscultation bilaterally Cardio Rate: regular rate Rhythm: regular rhythm GI Inspection: normal to inspection Palpation: soft, not firm, not rigid and nontender Auscultation: normal bowel sounds Skin General skin exam: no rashes or lesions noted Neuro General: patient alert, patient awake and patient oriented x3 Cognition: normal cognition Speech: speech normal Motor: muscle tone normal throughout Sensory Exam: no sensory deficits noted Extrem Other: Unable to lift his right shoulder or upper extremity due to pain. Right thumb normal to inspection without pain with range of motion or tenderness. No deformity noted to right hand. No tenderness palpation to right wrist. Right elbow normal to inspection and nontender. No pain with range of motion at right elbow, right wrist or right hand. Right radial and ulnar pulses intact. Right clavicle nontender. No clavicle deformity noted. Psych Appearance: grossly normal Mental Status: mental status grossly normal Speech and Movement: speech and movement normal Affect: normal affect Course <Taylor Vines DO - Last Filed: 05/25/20 19:54> Vital Signs Vital signs: Vital Signs Temperature 97.7 F 05/25/20 19:13 Pulse 78 05/25/20 19:13 Respiratory Rate 16 05/25/20 19:13 Blood Pressure 118/63 05/25/20 19:13 Pulse Oximetry 97 05/25/20 19:13 Temperature 97.7 F 05/25/20 19:13 Temperature Source Tympanic 05/25/20 19:13 Pulse 78 05/25/20 19:13 Respiratory Rate 16 05/25/20 19:13 Respiratory Effort Non-Labored 05/25/20 19:13 Blood Pressure 118/63 05/25/20 19:13 Blood Pressure Position Sitting 05/25/20 19:13 Pulse Oximetry 97 05/25/20 19:13 Oxygen Delivery Method Room Air 05/25/20 19:13 Oxygen Flow Rate 0 05/25/20 19:13 Pain Level 4 05/25/20 19:13 Comment 05/25/20 19:13 Sign Out <Taylor Vines DO - Last Filed: 05/25/20 19:54> Sign Out Data: Sign Out Comment: Follow up on imaging of shoulder and ribs to rule out fracture versus dislocation Last updated by Taylor Vines DO at 05/25/20 19:44
--- NOTE | 2020-05-25 19:30 | DI.RAD_ITS ---
EXAM: XR SHOULDER RT COMPLETE 2+V CLINICAL HISTORY: s/p fall, pain R ant shoulder, r/o fx/dislocation. TECHNIQUE: 2D digital imaging was performed. COMPARISON: CR RIGHT SHOULDER COMPLETE from 07/22/2016 FINDINGS: There is no evidence of acute fracture or dislocation. There are osteoarthritic degenerative changes of glenohumeral joint including osteophyte on the inferior articular surface of the humeral head. N o calcifications seen in the subacromial space. Capsular calcification is noted superiorly at the AC joint level. IMPRESSION: Degenerative changes in the glenohumeral joint. No fractures. DATA REPOSITORY: RADIATION DOSE DELIVERED:
--- NOTE | 2020-05-25 19:30 | DI.RAD_ITS ---
EXAM: XR RIBS RT W PA LAT CHEST CLINICAL HISTORY: s/p fall, r/o fx R ribs TECHNIQUE: 2D digital imaging was performed. COMPARISON: CR,RF RF BARIUM SWALLOW from 01/25/2020 FINDINGS: There are no acute rib fractures evident. No lytic rib lesions identified. No lung contusion or pneumothorax. There is no pleural effusion evident. Heart size is normal and there is no significant mediastinal widening. IMPRESSION: 1. No rib fractures evident. Also no obvious rib lesions. 2. No ipsilateral lung nor pleural abnormality evident. No pneumothorax. DATA REPOSITORY: RADIATION DOSE DELIVERED:
[2020-05-25] MEDS: Ibuprofen 600 MG TAB PO (20:02)
[2020-05-25] MEDS: oxyCODONE 5 MG TAB PO (20:02)
--- NOTE | 2020-05-25 21:15 | DI.VRAD_ITS ---
PROCEDURE INFORMATION: Exam: XR Right Shoulder Exam date and time: 05/25/2020 7:43 PM Age: 79 years old Clinical indication: Injury or trauma; Fall; Blunt trauma (contusions or hematomas); Shoulder; Right TECHNIQUE: Imaging protocol: XR Right shoulder. Views: 2 or more views. COMPARISON: No relevant prior studies available. FINDINGS: Bones/joints: There is no acute fracture or dislocation. There is mild calcific tendinopathy of the right shoulder . 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 Lungs: Visualized right lung is clear. Soft tissues: Normal. IMPRESSION: No acute fracture or dislocation Dictated and Authenticated by: Jean Bernard MD. Ordering:YULIA Vazquez MD
--- NOTE | 2020-05-25 21:20 | DI.VRAD_ITS ---
PROCEDURE INFORMATION: Exam: XR Right Ribs Exam date and time: 05/25/2020 7:43 PM Age: 79 years old Clinical indication: Pain; Other: Shoulder/ rib; Other: Fall TECHNIQUE: Imaging protocol: XR Right ribs. Views: 2 views. COMPARISON: CR XR CHEST 2V PA LATERAL 10/25/2018 8:14 PM FINDINGS: Bones/joints: Normal. Soft tissues: Normal. IMPRESSION: No acute findings. PROCEDURE INFORMATION: Exam: XR Chest Exam date and time: 05/25/2020 7:43 PM Age: 79 years old Clinical indication: Pain; Other: Shoulder/ rib; Other: Fall TECHNIQUE: Imaging protocol: XR of the chest. Views: 2 views. COMPARISON: CR XR CHEST 2V PA LATERAL 10/25/2018 8:14 PM FINDINGS: Lungs: Unremarkable. No consolidation. Pleural spaces: No pleural effusion. No pneumothorax. Heart/Mediastinum: No cardiomegaly. Bones/joints: There is no acute osseous abnormality. IMPRESSION: No acute findings. Dictated and Authenticated by: Jean Bernard MD. Ordering:YULIA Vazquez MD
--- NOTE | 2020-05-26 20:11 | NUR.NOTE ---
Nursing Note: Access chart for [facility] information. Marah Berry
== END 2020-05-25 22:10 | disposition home or self-care (01) ==
PROVIDERS: Emergency Provider Student in an Organized Health Care Education/Training Program; PCP Family Medicine
DX: M25.511 Pain in right shoulder (principal); W19.XXXA Unspecified fall, initial encounter
CPT/HCPCS: 99284; 71046; 71100; 73030; 99285

== ENCOUNTER → 2020-05-27 12:52 | Outpatient (BNVA) | payer OTHER, SELFPAY | PROVIDERS: PCP Family Medicine; Referring Provider Family Medicine; Visit Provider Urology | DX: C67.9 Malignant neoplasm of bladder, unspecified (principal) | CPT/HCPCS: 52000; 81003; 99213 ==

== ENCOUNTER 2020-05-30 02:42 | Outpatient (CLI) | payer OTHER, SELFPAY ==
[2020-05-30 10:29] LABS: Source Nasal/Nares
[2020-05-30 13:30] LABS: COVID-19 PCR Negative (Negative)
== END 2020-05-30 02:43 | disposition home or self-care (01) ==
LOC: LBO 02:42
PROVIDERS: PCP Family Medicine; Visit Provider Urology
DX: Z20.822 Contact with and (suspected) exposure to COVID-19 (principal); Z01.818 Encounter for other preprocedural examination
CPT/HCPCS: 87635

== ENCOUNTER 2020-06-02 07:11 | Day surgery (SDC) | payer OTHER, SELFPAY ==
[2020-06-02] VITALS (7 sets, daily range): BP systolic 116–146; BP diastolic 74–88; PULSE 54–63; RESP 17–26; TEMP 36.2–36.6; TEMPC 36.4; O2SAT 96–100; BMI 26.4
--- NOTE | 2020-06-02 08:04 | ANES.PREOP_ITS ---
Anesthesia Assessment and Plan Anesthesia History Personal History: No History of Anesthesia Complications Family History: No Family History of Anesthesia Complications Exercise Tolerance Exercise Tolerance: Metabolic Equivalents>4 Cardiac & Pulmonary Exam Cardiac Exam: Normal S1/S2 Heart Sounds Pulmonary Exam: Clear Bilateral Breath Sounds Airway Exam Known Difficult Airway: No Mallampati Class: 2 Mouth Opening: Narrow (< 3cm) Thyromental Distance: Greater than 3 cm Neck Range of Motion: Limited ROM Neck Circumference: Normal Teeth Condition: Normal Dentition ASA Classification ASA Score: ASA 3 ASA Emergency: No NPO Status NPO Status: NPO Clears >2 hours, Solids >8 hours Anesthesia Plan Anesthesia Technique: General Anesthesia Airway Planned: Natural Airway Monitors Used: Standard Monitors Additional Preop Comments:: Previous uro case with ketamine, prop, lidocaine without issue. Discussed the risk of postoperative cognitive dysfunction. Imaging and Studies Imaging and Studies Echocardiogram Summary 10/23: ejection fraction was 55%. Akinesis of the basal inferior myocardium; consistent with infarction. moderate regurgitation, Pulmonary Function Summary 02/23: Mild obstructive airways disease with significant bronchodilator response. General Info Date of Service This is a Shared Provider Document. All providers who document on this will be required to sign document once completed. 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 Terrance Flores MD Vital Signs and Lab Results Vital Signs Most Recent Vital Signs in EMR: Most Recent Vital Signs Temp Pulse Resp BP Pulse Ox 36.6 C 57 L 18 116/74 96 06/02/20 07:42 06/02/20 07:42 06/02/20 07:42 06/02/20 07:42 06/02/20 07:42 Point of Care Results Nursing Point of Care Results: No Data to Display Lab Results Blood Type / Crossmatch: No Data to Display Complete Blood Count: White Blood Count 5.12 10^3/uL (4.4-10.8) 03/27/20 12:25 03/27/20 Red Blood Count 3.78 10^6/uL (4.36-5.78) L 03/27/20 12:25 03/27/20 Hemoglobin 14.4 g/dL (13.5-17.5) 03/27/20 12:25 03/27/20 Hematocrit 43.3 % (40.0-50.0) 03/27/20 12:03/27/20 Platelet Count 343 10^3/uL (130-400) 03/27/20 12:25 03/27/20 Complete Metabolic Panel: Sodium Level 143 mmol/L (136-145) 03/27/20 12:03/27/20 Potassium Level 5.0 mmol/L (3.5-5.1) 03/27/20 12:03/27/20 Chloride Level 106 mmol/L (98-107) 03/27/20 12:03/27/20 Carbon Dioxide Level 29.4 mmol/L (21.0-32.0) 03/27/20 12:03/27/20 Blood Urea Nitrogen 27 mg/dL (7-18) H 03/27/20 12:25 03/27/20 Creatinine 1.2 mg/dL (0.70-1.30) 03/27/20 12:25 03/27/20 Magnesium Level 1.8 mg/dL (1.8-2.4) 10/25/18 19:55 10/25/18 Calcium Level 8.9 mg/dL (8.5-10.1) 03/27/20 12:03/27/20 Albumin 3.7 g/dL (3.4-5.0) 03/27/20 12:03/27/20 Glucose Level 80 mg/dL (74-106) 03/27/20 12:03/27/20 Liver Function Panel: Alanine Aminotransferase (ALT/SGPT) 22 U/L (16-63) 03/27/20 12:25 03/27/20 Aspartate Amino Transf (AST/SGOT) 20 U/L (15-37) 03/27/20 12:03/27/20 Coagulation Panel: INR International Normalized Ratio 1.0 (1.0-3.5) 02/20/16 11:02/20/16 Prothrombin Time 10.4 sec (9.3-11.4) 02/20/16 11:02/20/16 Activated Partial Thromboplast Time 25.3 sec (21.0-31.4) 02/20/16 11:17 D-Dimer 306 ng/mlFEU (45-500) 01/30/13 18:00 01/30/13 Cardiac Panel: Troponin I < 0.05 ng/mL (0.00-0.06) 10/25/18 23:00 10/25/18 Arterial Blood Gas: No Data to Display Venous Blood Gas: No Data to Display Pancreas Panel: No Data to Display Thyroid Panel: Thyroid Stimulating Hormone (TSH) 2.76 uIU/mL (0.36-3.74) 10/17/15 09:40 10/17/15 Infectious Disease: Coronavirus (COVID-19)(PCR) Negative (Negative) 05/30/20 08:56 05/30/20 Coronavirus 2019 Source Nasal/nares 05/30/20 08:56 05/30/20 Blood Cultures: Blood Culture Toxicology Panel: No Data to Display Panel: No Data to Display PFSH Medical History Cardiac arrest (~2005) 2005 Chronic obstructive lung disease FEV1 70% 02/20 COPD (chronic obstructive pulmonary disease) Disorder of adrenal gland Hypofunction; 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 saw Miranda. Resolved with time. Thought to be secondary to brain hypoxia. Disorder of adrenal gland Diverticulosis of colon without diverticulitis colonoscopy 06/15. Dr Stanford Gonzalez GI Erosive gastroesophageal reflux disease (06/09/16) SEVERE-DR. ANTOINE 06/09/16 Esophagitis Essential thrombocythemia (03/28/12) Essential thrombocytopenia pt. states this is incorrect that he has thrombocythemia 07/04/19 Takes hydroxyurea 1000 mg daily Full incontinence of feces (08/15/17) pt. states this has resolved Glaucoma Gross hematuria Hemorrhoids S/P SURGERY Herpes zoster Hiatal hernia Hiatal hernia (04/08/12) DR. ANTOINE Hip pain Hip pain History of tobacco use quit in 2005 History of tobacco use Hx of Raynaud's syndrome Per. pt. stated he was dx by Dr. 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 Coyne; neg 09/28/13 Dr. Antoine EGD - IV Sedation (06/09/16) 08/16/12 DR. ANTOINE 05/05/12 Dr. antoine; esophagitis 09/28/13 Dr. antoine H/O esophagogastroduodenoscopy 08/16/2012-Dr. Antoine; 05/05/12-Dr. Antoine; esophagitis 09/28/2013-Dr. Antoine H/O hemorrhoidectomy Hemorrhoidectomy History of esophagogastroduodenoscopy History of hemorrhoidectomy History of [place] fundoplication Dr. Schneider @ [facility] 2016 Paraesophageal hernia repair (08/17/16) [facility] Repair of inguinal hernia 2006 Left 2004 Right S/P endoscopy 02/07/13 upper endoscopy S/P inguinal hernia repair left-2005; right-2003 Status post inguinal hernia repair STEMI (~2005) Posterior lateral Social History (Updated 05/23/20 @ 14:30 by Kajal Soliz) Smoking/Tobacco Use Status: Former Tobacco Use Quit Date: 02/07/05 Second Hand Exposure: No Smoking risk assessment performed?: Yes Alcohol Intake: current Alcohol Intake frequency: holidays/special occasions only Substance use type: does not use Details: unknown alcohol Caregiver/Support person: No Household members: spouse Housing: house Communication Needs: Corrective Lenses Pets and animals: No Sexually active: Yes Do you think of yourself as: straight/heterosexual Current gender identity: male Duration: 15-30 minutes/day Frequency: 1-2 times per week Mayuri/Congregational: Nondenominational Agree to transfusion: No Seatbelt use: always Drive intox or ride w/intox 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 Pt. states everything is okay at home, in room Meds Allergies and Home Medications Allergies Allergy/AdvReac Type Severity Reaction Status Date / Time cyclobenzaprine HCl AdvReac CONFUSION Verified 06/02/20 07:25 [From Flexeril] Current Visit Medication Generic Name Dose Route Start Last Admin Trade Name Freq PRN Reason Stop Dose Admin Mitomycin 40 mg/ Sodium 0 mg 06/02/20 06:00 Chloride 40 ml BLADIN 06/02/20 23:59 TODAY CHERELLE Ringer's Solution 1,000 mls @ 80 mls/hr 06/02/20 06:00 06/02/20 08:15 IV 06/29/20 23:59 80 mls/hr INFUSION [facility] Administration Cefazolin Sodium/Dextrose 1 gm in 50 mls @ 100 mls/hr 06/02/20 06:00 Ancef Duplex IVPB 06/02/20 23:59 PREOP CHERELLE IV Miscellaneous Supplies 1 each 06/02/20 06:00 Iv Access IV 06/29/20 23:59 DIRECTED CHERELLE Sodium Chloride 0 ml 06/02/20 06:00 Normal Saline Flush 10 Ml Syr IV 06/29/20 23:59 PRN PRN Sodium Chloride 0 ml 06/02/20 06:00 Normal Saline 10 Ml Vial IJ 06/29/20 23:59 DIRECTED PRN Sterile Water 0 ml 06/02/20 06:00 Water,Injection,Sterile 10 Ml Vial IJ 06/29/20 23:59 DIRECTED PRN Home Medication Medication Instructions Recorded docusate sodium 100 mg capsule 100 mg PO DAILY PRN 11/15/17 escitalopram oxalate 10 mg tablet 10 mg PO DAILY #90 tab-cap 11/19/19 hydroxyurea 500 mg capsule 1,000 mg PO DAILY #180 tab 11/27/19 simvastatin 20 mg tablet 20 mg PO HS #90 tab-cap 11/27/19 latanoprost 1 drp OPHTHALMIC (EYE) HS 02/12/20 pantoprazole [Protonix] 40 mg PO BID #60 tab 02/14/20 acetaminophen 1,000 mg PO TID PRN 05/30/20
--- NOTE | 2020-06-02 08:09 | HPE_ITS ---
Date of service: 06/02/20 Time of Service: 08:09 Assessment and Plan Assessment and plan (1) Urothelial carcinoma of bladder: Status: Acute Assessment and plan: For TURBT and instillation of Mitomycin C into bladder History of Present Illness History of Present Illness Chief Complaint: Bladder cancer Narrative: This is a 79-year-old gentleman who has a history of urothelial cell carcinoma of the bladder. His initial diagnosis was made in 2019. His tumor was located at the right bladder neck. He was treated with a transurethral resection and his initial pathology showed low-grade tumor with focal areas approaching high- grade. No muscle involvement was identified. He then had a recurrence in February 2020. His recurrence was on the left posterior bladder wall. His tumor was felt to be likely high-grade high-grade but noninvasive. He received a postop instillation of mitomycin-C, but no induction series of intravesical treatments. On surveillance cystoscopy, a small papillary lesion was identified on the right anterior bladder wall. He presents for TURBT and instillation of Mitomycin C. Review of Systems Narrative: No fevers or chills No vision change or dysphasia No diabetes or thyroid dysfunction No cough or hemoptysis No chest pain or palpitations Hx GERD. No hepatitis, ulcers, jaundice, diarrhea or constipation Hx encephalopathy. No seizures, strokes or peripheral neuropathy Hx thrombocythemia. No anemia Chronic back and shoulder pain. 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 saw Miranda. Resolved with time. Thought to be secondary to brain hypoxia. Disorder of adrenal gland Diverticulosis of colon without diverticulitis colonoscopy 06/15. Dr Stanford Gonzalez GI Erosive gastroesophageal reflux disease (06/09/16) SEVERE-DR. ANTOINE 06/09/16 Esophagitis Essential thrombocythemia (03/28/12) Essential thrombocytopenia pt. states this is incorrect that he has thrombocythemia 07/04/19 Takes hydroxyurea 1000 mg daily Full incontinence of feces (08/15/17) pt. states this has resolved Glaucoma Gross hematuria Hemorrhoids S/P SURGERY Herpes zoster Hiatal hernia Hiatal hernia (04/08/12) DR. ANTOINE Hip pain Hip pain History of tobacco use quit in 2005 History of tobacco use Hx of Raynaud's syndrome Per. pt. stated he was dx by Dr. 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 Coyne; neg 09/28/13 Dr. Antoine EGD - IV Sedation (06/09/16) 08/16/12 DR. ANTOINE 05/05/12 Dr. antoine; esophagitis 09/28/13 Dr. antoine H/O esophagogastroduodenoscopy 08/16/2012-Dr. Antoine; 05/05/12-Dr. Antoine; esophagitis 09/28/2013-Dr. Antoine H/O hemorrhoidectomy Hemorrhoidectomy History of esophagogastroduodenoscopy History of hemorrhoidectomy History [place] [facility] [place]08[place]17/16[place] [facility] [place]air of inguinal hernia 2006 Left 2004 Right S/P endoscopy 02/07/13 upper endoscopy S/P inguinal hernia repair left-2005; right-2004 Status post inguinal hernia repair STEMI (~2005) Posterior lateral Family History (Updated 05/23/20 @ 14:30 by Kajal Soliz) Mother No problems noted. Sister Heart disease PACEMAKER Social History (Updated 05/23/20 @ 14:30 by Kajal Soliz) Smoking/Tobacco Use Status: Former Tobacco Use Quit Date: 02/07/05 Second Hand Exposure: No Smoking risk assessment performed?: Yes Alcohol Intake: current Alcohol Intake frequency: holidays/special occasions only Substance use type: does not use Details: unknown alcohol Caregiver/Support person: No Household members: spouse Housing: house Communication Needs: Corrective Lenses Pets and animals: No Sexually active: Yes Do you think of yourself as: straight/heterosexual Current gender identity: male Duration: 15-30 minutes/day Frequency: 1-2 times per week Mayuri/Spiritism: Worship Agree to transfusion: No Seatbelt use: always Drive intox or ride w/intox oil transport driver: No Additional Social history: answered questions for pt. Pt. states everything is okay at home, in room Meds Allergies and Home Medications Allergies Allergy/AdvReac Type Severity Reaction Status Date / Time cyclobenzaprine HCl AdvReac CONFUSION Verified 06/02/20 07:25 [From Flexeril] Home Medications Medication Instructions Recorded Confirmed Type docusate sodium 100 mg capsule 100 mg PO DAILY PRN 11/15/17 06/02/20 History escitalopram oxalate 10 mg tablet 10 mg PO DAILY #90 tab-cap 11/19/19 06/02/20 Rx hydroxyurea 500 mg capsule 1,000 mg PO DAILY #180 tab 11/27/19 06/02/20 Rx simvastatin 20 mg tablet 20 mg PO HS #90 tab-cap 11/27/19 06/02/20 Rx latanoprost 1 drp OPHTHALMIC (EYE) HS 02/12/20 06/02/20 History pantoprazole [Protonix] 40 mg PO BID #60 tab 02/14/20 06/02/20 Rx acetaminophen 1,000 mg PO TID PRN 05/30/20 06/02/20 History Exam Const General: cooperative and comfortable Neck Neck: supple Resp Effort & Inspection: normal respiratory effort Auscultation: clear to auscultation bilaterally Cardio Rate: regular rate Rhythm: regular rhythm GI Palpation: soft and no masses Neuro General: patient alert and patient awake Results Last Vital Signs Temp 36.6 C 06/02/20 07:42 Pulse 57 L 06/02/20 07:42 Resp 18 06/02/20 07:42 BP 116/74 06/02/20 07:42 Pulse Ox 96 06/02/20 07:42 COVID-19 Screening Have you, or household traveled for leisure in last 14 days?: No Had IN PERSON contact w/suspected or confirmed C-19 person: No
[2020-06-02] MEDS: Lactated Ringers 1,000 ML 80 ML IV (08:15)
[2020-06-02] MEDS: ceFAZolin 1 GM/50 ML BAG IVPB (08:51)
[2020-06-02] MEDS: Lidocaine 2% Jelly 6 ML SYR (09:10)
--- NOTE | 2020-06-02 09:15 | BLADDER_PTH ---
PATIENT: Sy Pritchett LOC: [facility] U#:[id number] AGE/SX: 79/M ROOM: RE06/02/[address]: Terrance Flores MD : 1940 BED: DIS: 06/02/2020 SPEC #: [id number] RECD: 06/02/20 12:43 STATUS: ALAN RE #: [id number] BALTAZAR: 06/02/20 09:[address]: Terrance Flores DEPT: Surgical Specimen RECD BY: Jackie Lin ENTERED: 06/02/20 12:43 SP TYPE: Bladder OTHR DR: Iris Mejia MD, DC Tissues: 1 - BLADDER BIOPSY Procedures: GROSS AND MICRO LEVEL 4 Comments: [id number]
--- NOTE | 2020-06-02 09:30 | W.PM.DSUDISC ---
Discharge Plan Disposition Patient Disposition: HOME Condition: Stable Discharge Details Reason For Visit: bladder tumor Attending Provider: Terrance Flores Primary Care Provider: Iris Mejia Home Meds and New Rx's Prescriptions: No Action hydroxyurea [Hydrea] 500 mg capsule 1,000 mg PO DAILY Qty: 180 RF: 12 simvastatin [Zocor] 20 mg tablet 20 mg PO HS Qty: 90 RF: 4 escitalopram oxalate [Lexapro] 10 mg tablet 10 mg PO DAILY Qty: 90 RF: 12 docusate sodium [Colace] 100 mg capsule 100 mg PO DAILY PRNRF: 0 acetaminophen 500 mg Tablet 1,000 mg PO TID PRNRF: 0 latanoprost 0.005 % drops 1 drp ophthalmic (eye) HS RF: 0 pantoprazole [Protonix] 40 mg tablet,delayed release (DR/EC) 40 mg PO BID Qty: 60 RF: 12 Discharge Instructions Additional Instructions: Followup 2 weeks for pathology report no straining or lifting over 10 pounds for 1 week Activity:: Activity as Tolerated Shower/Bathe:: 24 hours Diet:: As Tolerated Discharge Orders Discharge Orders: Discharge Order (Routine); Ordered 06/02/20 Ordered By: Terrance Flores DS: Diagnosis Discharge Diagnosis (1) Urothelial carcinoma of bladder: Status: Acute
--- NOTE | 2020-06-02 09:35 | ROE_ITS ---
Date of service: 06/02/20 Time of Service: 09:35 Operative Note Operative Note DATE OF PROCEDURE: 06/02/20 PRE-OP DIAGNOSIS: Bladder cancer POST-OP DIAGNOSIS: same PROCEDURE: Cystoscopy, TURBT (less than 2 cm), instillation of Mitomycin C into bladder SURGEON: Terrance Flores ANESTHESIA TYPE: General:No Airway Refer to Anesthesia Record ESTIMATED BLOOD LOSS: 25 PATHOLOGY: other (bladder tumor) COMPLICATIONS: None Patient was transported to: PACU Patient's condition: stable Implants: 16 Barb[place] bull with 10 cc in catheter balloon Indications: This is a 79-year-old gentleman who has a history of urothelial cell carcinoma of the bladder. On recent surveillance cystoscopy, he was found to have a small papillary lesion in the right anterior bladder wall. He presents for transurethral resection and instillation of mitomycin-C into the bladder. Findings: Less than 2 cm papillary lesion on right anterior bladder wall Procedure Description: The patient was given preoperative IV antibiotics and brought to the operating room on 06/02/2020. After successful induction of general anesthesia, he was placed in the dorsolithotomy position. His genitalia was prepped and draped. 2% Xylocaine jelly was instilled into the urethra. A 24 [place] resectoscope sheath was then passed through the urethra into the bladder. We used a visual obturator to inspect the urethra using the 30 degree lens. The pendulous, bulbar and membranous urethra all appeared normal with no strictures. The prostatic urethra showed some lateral lobe enlargement but no significant median lobe. Upon the right anterior bladder wall, with in 3 cm of a small bladder diverticulum, we identified a papillary lesion. We resected the area using an [employer] resectoscope. The resected tissue was sent to pathology for permanent section. The underlying tissue was cauterized using the coagulation current. Once the resection was completed, we removed to the resectoscope and passed a 16 Barb[place] Bull catheter through the urethra into the bladder. The catheter balloon was inflated with 10 cc of sterile water. Once the bladder was drained, we instilled a solution containing 40 mg of mitomycin-C and 40 mL of sterile water. The catheter was then clamped leaving the solution in place. The patient tolerated the procedure well with no complications.
--- NOTE | 2020-06-02 09:39 | W.ANESPOSTOP ---
Postoperative Evaluation Date, Time and Location Date Performed: 06/02/20 Time Performed: 09:39 Patient Location: PACU Vital Signs Most Recent Imported Vital Signs: Most Recent Vital Signs Temp Pulse Resp BP Pulse Ox 36.4 C L 56 L 21 136/80 96 06/02/20 09:35 06/02/20 09:35 06/02/20 09:35 06/02/20 09:35 06/02/20 09:35 Assessment Mental Status: Arousable with meaningful communication Airway and Respiratory Function: Patent airway with normal (patient baseline) respiratory exam Cardiovascular Function: Hemodynamically Stable Hydration Status: Adequately Hydrated Nausea & Vomiting: No Nausea or Vomiting Pain: Pt. Denies Any Pain Peripheral Nerve Block: Patient did not receive a nerve block
[2020-06-02] MEDS: Phenazopyridine 200 MG TAB PO (10:20)
--- NOTE | 2020-06-02 11:09 | W.ANESPOSTOP ---
Postoperative Evaluation Date, Time and Location Date Performed: 06/02/20 Time Performed: 11:09 Patient Location: Day Surgery Unit Vital Signs Most Recent Imported Vital Signs: Most Recent Vital Signs Temp Pulse Resp BP Pulse Ox 36.2 C L 54 L 18 140/88 100 06/02/20 10:16 06/02/20 10:16 06/02/20 10:16 06/02/20 10:16 06/02/20 10:16 Most Recent Vital Signs Temp Pulse Resp BP Pulse Ox 36.4 C L 56 L 21 136/80 96 06/02/20 09:35 06/02/20 09:35 06/02/20 09:35 06/02/20 09:35 06/02/20 09:35 Most Recent Manually Entered Vital Signs: Adult Blood Pressure: 146/80 Heart Rate: 55 Respirations: 26 Oxygen Saturation (%): 97 Temperature (C): 36.4 C Pain Score (0-10 Scale): 0 Assessment Mental Status: Awake (Alert & Oriented to Patient Baseline) Airway and Respiratory Function: Patent airway with normal (patient baseline) respiratory exam Cardiovascular Function: Hemodynamically Stable Hydration Status: Adequately Hydrated Nausea & Vomiting: No Nausea or Vomiting Pain: Pt. Denies Any Pain Peripheral Nerve Block: Patient did not receive a nerve block Teaching Patient Teaching: Discussed Safe Use of Pain Medication Given Recent Anesthesia
== END 2020-06-02 11:35 | disposition home or self-care (01) ==
PROVIDERS: PCP Family Medicine; Visit Provider Urology
PROC: 0TBB8ZZ Excision of Bladder, Via Natural or Artificial Opening Endoscopic (ICD-10-PCS; CPT 52234; principal; 2020-06-02 09:00)
DX: C67.9 Malignant neoplasm of bladder, unspecified (principal)
CPT/HCPCS: 52234; 51720; 88305; J0690; J2001; J2704; J9280

== ENCOUNTER → 2020-06-04 07:54 | Outpatient (BNVA) | payer OTHER, SELFPAY | PROVIDERS: PCP Family Medicine; Referring Provider Student in an Organized Health Care Education/Training Program; Visit Provider Physician Assistant Surgical | DX: M25.511 Pain in right shoulder (principal); J44.9 Chronic obstructive pulmonary disease, unspecified; W18.30XA Fall on same level, unspecified, initial encounter | CPT/HCPCS: 99213 ==

== ENCOUNTER → 2020-06-17 10:52 | Outpatient (BNVA) | payer OTHER, SELFPAY | PROVIDERS: PCP Family Medicine; Referring Provider Family Medicine; Visit Provider Urology | DX: C67.9 Malignant neoplasm of bladder, unspecified (principal) | CPT/HCPCS: 99213 ==

== ENCOUNTER 2020-06-24 02:01 | Outpatient (CLI) | payer OTHER, SELFPAY ==
--- NOTE | 2020-06-24 10:45 | DI.MRI_ITS ---
Exam(s) MR UPPER JOINT RT WO EXAM: MR UPPER JOINT RT WO CLINICAL HISTORY: SHOULDER PAIN, TRAUMATIC ROTATOR CUFF TEAR,S46.019A. TECHNIQUE: Multiplanar multisequence MRI was performed. COMPARISON: None. FINDINGS: Exam is limited by patient motion. There is spurring at the AC joint and tip of the acromion. There is a full-thickness tear with retraction to the level of the glenoid of the supraspinatus tend on. There is mild supraspinatus muscle atrophy, Goutallier classification grade 2. There is also a full-thickness tear with retraction of the infraspinatus tendon. There is no signifi cant atrophy. The subscapularis, biceps and teres minor tendons appear intact. There is a moderate-sized joint eff usion. There is fluid in the subcoracoid bursa. There are degenerative changes of the glenohumeral joint. The labrum is not well evaluated due to motion. IMPRESSION: Full-thickness tears with retraction of the supraspinatus and infraspinatus tendons. DATA REPOSITORY:
== END 2020-06-24 02:21 ==
PROVIDERS: PCP Family Medicine; Visit Provider Student in an Organized Health Care Education/Training Program
DX: M25.511 Pain in right shoulder (principal); M75.101 Unspecified rotator cuff tear or rupture of right shoulder, not specified as traumatic; M75.81 Other shoulder lesions, right shoulder; M25.411 Effusion, right shoulder
CPT/HCPCS: 73221

== ENCOUNTER → 2020-07-08 15:11 | Outpatient (BNVA) | payer OTHER, SELFPAY | PROVIDERS: PCP Family Medicine; Referring Provider Family Medicine; Visit Provider Student in an Organized Health Care Education/Training Program | DX: S46.011D Strain of muscle(s) and tendon(s) of the rotator cuff of right shoulder, subsequent encounter (principal); M12.811 Other specific arthropathies, not elsewhere classified, right shoulder; W19.XXXD Unspecified fall, subsequent encounter | CPT/HCPCS: 99213; 99214 ==

== ENCOUNTER 2020-08-14 02:50 | Outpatient (CLI) | payer OTHER, SELFPAY ==
[2020-08-14 13:06] LABS: Abs Immature Grans 0.02 10^3/uL (0.0-0.06); Absolute Basophil Count 0.04 10^3/uL (0.0-0.2); Absolute Eosinophil Count 0.06 10^3/uL (0.0-0.7); Absolute Lymphocyte Count 1.45 10^3/uL (1.2-3.4); Absolute Monocyte Count 0.61 10^3/uL (0.1-0.8); Absolute Neutrophil Count 2.37 10^3/uL (1.2-6.7); Basophils % 0.9; Eosinophils % 1.3; HCT 41.6 % (40.0-50.0); HGB 13.7 g/dL (13.5-17.5); Immature Grans % 0.4; Lymphocytes % 31.9; MCH 38.4 pg (27.0-33.0); MCHC 32.9 % (32.0-36.0); MCV 116.5 fL (80-95); MPV 10.5 fL (8.0-11.0); Monocytes % 13.4; Neutrophils % 52.1; Nucleated RBC 0 %; RBC 3.57 10^6/uL (4.36-5.78); RDW 13.6 % (11.8-14.1); RDW-SD 58.5 fL; WBC 4.55 10^3/uL (4.4-10.8)
[2020-08-14 13:18] LABS: ALT 18 U/L (16-63); AST 15 U/L (15-37); Albumin 3.7 g/dL (3.4-5.0); Alkaline Phosphatase 61 U/L (46-116); Anion Gap 4.9 mmol/L (3-11); BUN 19 mg/dL (7-18); Bilirubin, Total 0.8 mg/dL (0.2-1.0); CO2 32.1 mmol/L (21.0-32.0); CREATININE 1.2 mg/dL (0.70-1.30); Calcium 9.1 mg/dL (8.5-10.1); Chloride 106 mmol/L (98-107); Glucose 84 mg/dL (74-106); Potassium 4.3 mmol/L (3.5-5.1); Sodium 143 mmol/L (136-145)
[2020-08-14 13:21] LABS: Diff Comment Diff Reviewed; Platelet Count 361 10^3/uL (130-400)
[2020-08-14 13:22] LABS: Macrocytosis 2+; Polychromasia Present
== END 2020-08-14 02:51 | disposition home or self-care (01) ==
LOC: LBO 02:51
PROVIDERS: PCP Family Medicine; Visit Provider Internal Medicine Hematology & Oncology
DX: D47.3 Essential (hemorrhagic) thrombocythemia (principal)
CPT/HCPCS: 36415; 80053; 85025

== ENCOUNTER 2020-08-18 12:04 | Outpatient (CLI) | payer OTHER, SELFPAY ==
--- NOTE | 2020-08-18 11:15 | DI.RAD_ITS ---
Exam(s) XR RIBS RT W PA LAT CHEST EXAM: XR RIBS RT W PA LAT CHEST CLINICAL HISTORY: s/p fall r/o rib fx R07.81 PLEURODYNIA TECHNIQUE: 2D digital imaging was performed. COMPARISON: CR,XR XR RIBS RT W PA LAT CHEST from 05/25/2020 FINDINGS: There are no acute rib fractures evident. No lytic rib lesions identified. No lung contusion or pneumothorax. There is no pleural effusion evident. Heart size is normal and there is no significant mediastinal widening. Elevated left hemidiaphragm is noted. IMPRESSION: 1. No rib fractures evident. Also no obvious rib lesions. 2. No ipsilateral lung nor pleural abnormality evident. No pneumothorax. DATA REPOSITORY: RADIATION DOSE DELIVERED:
== END 2020-08-18 12:24 ==
PROVIDERS: PCP Family Medicine; Visit Provider Nurse Practitioner Family
DX: G89.11 Acute pain due to trauma (principal); R07.81 Pleurodynia; W18.30XA Fall on same level, unspecified, initial encounter; Y93.01 Activity, walking, marching and hiking; Y99.8 Other external cause status
CPT/HCPCS: 71046; 71100

== ENCOUNTER → 2020-09-19 11:21 | Outpatient (BNVA) | payer OTHER, SELFPAY | PROVIDERS: PCP Family Medicine; Referring Provider Family Medicine; Visit Provider Urology | DX: C67.9 Malignant neoplasm of bladder, unspecified (principal) | CPT/HCPCS: 52000; 81003; 99213 ==

== ENCOUNTER → 2020-09-24 10:52 | Outpatient (BNVA) | payer OTHER, SELFPAY | PROVIDERS: PCP Family Medicine; Visit Provider Student in an Organized Health Care Education/Training Program | DX: M12.811 Other specific arthropathies, not elsewhere classified, right shoulder; M75.101 Unspecified rotator cuff tear or rupture of right shoulder, not specified as traumatic | CPT/HCPCS: 99213 ==

== ENCOUNTER 2020-10-24 01:31 | Outpatient (CLI) | payer MEDICARE, OTHER, SELFPAY ==
[2020-10-24 12:40] LABS: Calculated LDL 93 mg/dL (<100); Cholesterol 159 mg/dL (<200); HDL Cholesterol 53 mg/dL (40-60); Triglyceride 68 mg/dL (<150)
== END 2020-10-24 01:32 | disposition home or self-care (01) ==
LOC: LBO 01:31
PROVIDERS: PCP Family Medicine; Visit Provider Family Medicine
DX: I25.10 Atherosclerotic heart disease of native coronary artery without angina pectoris (principal)
CPT/HCPCS: 36415; 80061

== ENCOUNTER → 2021-01-09 08:56 | Outpatient (BNVA) | payer MEDICARE, SELFPAY | PROVIDERS: PCP Family Medicine; Visit Provider Urology | DX: C67.9 Malignant neoplasm of bladder, unspecified (principal); D49.4 Neoplasm of unspecified behavior of bladder | CPT/HCPCS: 52000; 99213 ==

== ENCOUNTER 2021-02-20 04:17 | Outpatient (CLI) | payer MEDICARE, SELFPAY ==
[2021-02-20 16:24] LABS: ALT 23 U/L (16-63); AST 21 U/L (15-37); Alkaline Phosphatase 79 U/L (46-116); BUN 22 mg/dL (7-18); Bilirubin, Total 0.6 mg/dL (0.2-1.0); CREATININE 1.1 mg/dL (0.70-1.30); Calcium 9.4 mg/dL (8.5-10.1); Chloride 104 mmol/L (98-107); Glucose 61 mg/dL (74-106); Potassium 4.7 mmol/L (3.5-5.1); Sodium 140 mmol/L (136-145); Total Protein 7.1 g/dL (6.4-8.2)
== END 2021-02-20 04:18 | disposition home or self-care (01) ==
LOC: LBO 04:18
PROVIDERS: PCP Family Medicine; Visit Provider Internal Medicine Hematology & Oncology
DX: D47.3 Essential (hemorrhagic) thrombocythemia (principal)
CPT/HCPCS: 36415; 80053

== ENCOUNTER 2021-02-24 02:32 | Outpatient (CLI) | payer MEDICARE, SELFPAY ==
[2021-02-24 13:33] LABS: Abs Immature Grans 0.02 10^3/uL (0.0-0.06); Absolute Basophil Count 0.04 10^3/uL (0.0-0.2); Absolute Eosinophil Count 0.09 10^3/uL (0.0-0.7); Absolute Lymphocyte Count 1.46 10^3/uL (1.2-3.4); Absolute Monocyte Count 0.61 10^3/uL (0.1-0.8); Absolute Neutrophil Count 2.94 10^3/uL (1.2-6.7); Basophils % 0.8; Eosinophils % 1.7; HCT 44.2 % (40.0-50.0); HGB 14.2 g/dL (13.5-17.5); Immature Grans % 0.4; Lymphocytes % 28.3; MCH 36.6 pg (27.0-33.0); MCHC 32.1 % (32.0-36.0); MCV 113.9 fL (80-95); MPV 10.5 fL (8.0-11.0); Monocytes % 11.8; Nucleated RBC 0 %; Platelet Count 511 10^3/uL (130-400); RBC 3.88 10^6/uL (4.36-5.78); RDW 13.5 % (11.8-14.1); RDW-SD 57.6 fL; WBC 5.16 10^3/uL (4.4-10.8)
== END 2021-02-24 02:33 | disposition home or self-care (01) ==
LOC: LBO 02:32
PROVIDERS: PCP Family Medicine; Visit Provider Internal Medicine Hematology & Oncology
DX: G93.1 Anoxic brain damage, not elsewhere classified (principal)
CPT/HCPCS: 36415; 85025

== ENCOUNTER 2021-03-16 03:47 | Outpatient (CLI) | payer MEDICARE, SELFPAY ==
[2021-03-16 07:37] LABS: ALT 20 U/L (16-63); AST 19 U/L (15-37); Albumin 3.7 g/dL (3.4-5.0); Alkaline Phosphatase 74 U/L (46-116); Anion Gap 6.6 mmol/L (3-11); BUN 23 mg/dL (7-18); Bilirubin, Total 0.6 mg/dL (0.2-1.0); CO2 32.4 mmol/L (21.0-32.0); CREATININE 1.1 mg/dL (0.70-1.30); Calcium 8.5 mg/dL (8.5-10.1); Chloride 107 mmol/L (98-107); Glucose 86 mg/dL (74-106); Sodium 146 mmol/L (136-145); Total Protein 6.8 g/dL (6.4-8.2)
== END 2021-03-16 03:48 | disposition home or self-care (01) ==
LOC: LBO 03:47
PROVIDERS: PCP Family Medicine; Visit Provider Internal Medicine Hematology & Oncology
DX: G93.1 Anoxic brain damage, not elsewhere classified (principal)
CPT/HCPCS: 36415; 80053; 85025

== ENCOUNTER 2021-03-18 13:24 | Outpatient (CLI) | payer MEDICARE, SELFPAY ==
[2021-03-18 13:42] LABS: Abs Immature Grans 0.04 10^3/uL (0.0-0.06); Absolute Basophil Count 0.06 10^3/uL (0.0-0.2); Absolute Monocyte Count 0.85 10^3/uL (0.1-0.8); Absolute Neutrophil Count 3.78 10^3/uL (1.2-6.7); Eosinophils % 1.6; HCT 42.7 % (40.0-50.0); HGB 13.7 g/dL (13.5-17.5); Immature Grans % 0.7; Lymphocytes % 21.2; MCH 37.2 pg (27.0-33.0); MCHC 32.1 % (32.0-36.0); MPV 10.7 fL (8.0-11.0); Monocytes % 13.9; Neutrophils % 61.6; Nucleated RBC 0 %; Platelet Count 459 10^3/uL (130-400); RBC 3.68 10^6/uL (4.36-5.78); RDW 13.5 % (11.8-14.1); RDW-SD 58.3 fL; WBC 6.13 10^3/uL (4.4-10.8)
== END 2021-03-18 13:25 | disposition home or self-care (01) ==
LOC: LBO 13:25
PROVIDERS: PCP Family Medicine; Visit Provider Internal Medicine Hematology & Oncology
DX: G93.1 Anoxic brain damage, not elsewhere classified (principal)
CPT/HCPCS: 36415; 85025

== ENCOUNTER 2021-04-15 03:41 | Outpatient (CLI) | payer MEDICARE, SELFPAY ==
[2021-04-15 12:34] LABS: Abs Immature Grans 0.02 10^3/uL (0.0-0.06); Absolute Basophil Count 0.04 10^3/uL (0.0-0.2); Absolute Eosinophil Count 0.08 10^3/uL (0.0-0.7); Absolute Lymphocyte Count 1.42 10^3/uL (1.2-3.4); Absolute Monocyte Count 0.58 10^3/uL (0.1-0.8); Absolute Neutrophil Count 2.24 10^3/uL (1.2-6.7); Basophils % 0.9; Eosinophils % 1.8; HCT 44.4 % (40.0-50.0); HGB 14.3 g/dL (13.5-17.5); Immature Grans % 0.5; Lymphocytes % 32.4; MCH 36.6 pg (27.0-33.0); MCHC 32.2 % (32.0-36.0); MCV 113.6 fL (80-95); MPV 10.3 fL (8.0-11.0); Monocytes % 13.2; Neutrophils % 51.2; Nucleated RBC 0 %; Platelet Count 511 10^3/uL (130-400); RBC 3.91 10^6/uL (4.36-5.78); RDW 13.3 % (11.8-14.1); RDW-SD 56.2 fL; WBC 4.38 10^3/uL (4.4-10.8)
[2021-04-15 12:55] LABS: ALT 19 U/L (16-63); AST 16 U/L (15-37); Albumin 3.7 g/dL (3.4-5.0); Alkaline Phosphatase 73 U/L (46-116); Anion Gap 5.1 mmol/L (3-11); BUN 22 mg/dL (7-18); Bilirubin, Total 0.8 mg/dL (0.2-1.0); CO2 30.9 mmol/L (21.0-32.0); CREATININE 1.2 mg/dL (0.70-1.30); Calcium 8.9 mg/dL (8.5-10.1); Chloride 105 mmol/L (98-107); Glucose 56 mg/dL (74-106); Potassium 4.3 mmol/L (3.5-5.1); Sodium 141 mmol/L (136-145)
== END 2021-04-15 03:42 | disposition home or self-care (01) ==
LOC: LBO 03:42
PROVIDERS: PCP Family Medicine; Visit Provider Internal Medicine Hematology & Oncology
DX: G93.1 Anoxic brain damage, not elsewhere classified (principal)
CPT/HCPCS: 36415; 80053; 85025

== ENCOUNTER → 2021-04-17 12:47 | Outpatient (BNVA) | payer MEDICARE, SELFPAY | PROVIDERS: PCP Family Medicine; Visit Provider Urology | DX: C67.9 Malignant neoplasm of bladder, unspecified (principal) | CPT/HCPCS: 52000; 81003 ==

== ENCOUNTER 2021-05-14 02:17 | Outpatient (CLI) | payer MEDICARE, SELFPAY | END 2021-05-14 02:18 | disposition home or self-care (01) | LOC: LBO 02:17 | PROVIDERS: PCP Family Medicine; Visit Provider Internal Medicine Hematology & Oncology ==

== ENCOUNTER 2021-05-20 02:56 | Outpatient (CLI) | payer MEDICARE, SELFPAY ==
[2021-05-20 12:01] LABS: Abs Immature Grans 0.01 10^3/uL (0.0-0.06); Absolute Basophil Count 0.05 10^3/uL (0.0-0.2); Absolute Eosinophil Count 0.06 10^3/uL (0.0-0.7); Absolute Lymphocyte Count 1.52 10^3/uL (1.2-3.4); Absolute Monocyte Count 0.53 10^3/uL (0.1-0.8); Absolute Neutrophil Count 2.33 10^3/uL (1.2-6.7); Basophils % 1.1; Eosinophils % 1.3; HCT 44.3 % (40.0-50.0); HGB 14.3 g/dL (13.5-17.5); Immature Grans % 0.2; Lymphocytes % 33.8; MCH 36.8 pg (27.0-33.0); MCHC 32.3 % (32.0-36.0); MCV 113.9 fL (80-95); MPV 10.1 fL (8.0-11.0); Monocytes % 11.8; Neutrophils % 51.8; Nucleated RBC 0 %; Platelet Count 428 10^3/uL (130-400); RBC 3.89 10^6/uL (4.36-5.78); RDW 13.7 % (11.8-14.1); RDW-SD 58.4 fL
[2021-05-20 12:14] LABS: ALT 22 U/L (16-63); AST 19 U/L (15-37); Albumin 3.9 g/dL (3.4-5.0); Alkaline Phosphatase 68 U/L (46-116); Anion Gap 2.8 mmol/L (3-11); BUN 26 mg/dL (7-18); Bilirubin, Total 0.9 mg/dL (0.2-1.0); CO2 33.2 mmol/L (21.0-32.0); CREATININE 1.3 mg/dL (0.70-1.30); Calcium 9.1 mg/dL (8.5-10.1); Chloride 105 mmol/L (98-107); Estimated GFR 53.25 (mL/min/1.73m2); Glucose 82 mg/dL (74-106); Potassium 4.3 mmol/L (3.5-5.1); Sodium 141 mmol/L (136-145); Total Protein 7.2 g/dL (6.4-8.2)
== END 2021-05-20 02:57 | disposition home or self-care (01) ==
LOC: LBO 02:56
PROVIDERS: PCP Family Medicine; Visit Provider Internal Medicine Hematology & Oncology
DX: G93.1 Anoxic brain damage, not elsewhere classified (principal)
CPT/HCPCS: 36415; 80053; 85025

== ENCOUNTER 2021-07-20 04:30 | Outpatient (CLI) | payer MEDICARE, SELFPAY ==
[2021-07-20 12:12] LABS: Abs Immature Grans 0.02 10^3/uL (0.0-0.06); Absolute Basophil Count 0.04 10^3/uL (0.0-0.2); Absolute Eosinophil Count 0.06 10^3/uL (0.0-0.7); Absolute Monocyte Count 0.65 10^3/uL (0.1-0.8); Absolute Neutrophil Count 3.09 10^3/uL (1.2-6.7); Basophils % 0.8; Eosinophils % 1.2; HCT 42.4 % (40.0-50.0); HGB 13.9 g/dL (13.5-17.5); Immature Grans % 0.4; Lymphocytes % 25.2; MCH 36.5 pg (27.0-33.0); MCHC 32.8 % (32.0-36.0); MCV 111 fL (80-95); MPV 10.4 fL (8.0-11.0); Monocytes % 12.6; Neutrophils % 59.8; Platelet Count 436 10^3/uL (130-400); RBC 3.81 10^6/uL (4.36-5.78); RDW 14.4 % (11.8-14.1); RDW-SD 58.4 fL; WBC 5.16 10^3/uL (4.4-10.8)
[2021-07-20 12:45] LABS: ALT 23 U/L (16-63); AST 18 U/L (15-37); Albumin 3.8 g/dL (3.4-5.0); Alkaline Phosphatase 61 U/L (46-116); Anion Gap 6.3 mmol/L (3-11); BUN 26 mg/dL (7-18); Bilirubin, Total 0.8 mg/dL (0.2-1.0); CO2 29.7 mmol/L (21.0-32.0); CREATININE 1.3 mg/dL (0.70-1.30); Calcium 9.1 mg/dL (8.5-10.1); Chloride 105 mmol/L (98-107); Estimated GFR 53.25 (mL/min/1.73m2); Glucose 86 mg/dL (74-106); Potassium 4.7 mmol/L (3.5-5.1); Sodium 141 mmol/L (136-145)
== END 2021-07-20 04:31 | disposition home or self-care (01) ==
LOC: LBO 04:30
PROVIDERS: PCP Family Medicine; Visit Provider Internal Medicine Hematology & Oncology
DX: G93.1 Anoxic brain damage, not elsewhere classified (principal)
CPT/HCPCS: 36415; 80053; 85025

== ENCOUNTER 2021-09-03 03:13 | Outpatient (CLI) | payer MEDICARE, SELFPAY ==
[2021-09-03 13:24] LABS: Abs Immature Grans 0.01 10^3/uL (0.0-0.06); Absolute Basophil Count 0.03 10^3/uL (0.0-0.2); Absolute Lymphocyte Count 1.51 10^3/uL (1.2-3.4); Absolute Monocyte Count 0.47 10^3/uL (0.1-0.8); Absolute Neutrophil Count 2.49 10^3/uL (1.2-6.7); Basophils % 0.7; Eosinophils % 2.2; HCT 41.6 % (40.0-50.0); HGB 13.7 g/dL (13.5-17.5); Immature Grans % 0.2; Lymphocytes % 32.8; MCH 36.8 pg (27.0-33.0); MCHC 32.9 % (32.0-36.0); MCV 112 fL (80-95); MPV 10.6 fL (8.0-11.0); Monocytes % 10.2; Neutrophils % 53.9; Platelet Count 484 10^3/uL (130-400); RBC 3.72 10^6/uL (4.36-5.78); RDW 14.2 % (11.8-14.1); RDW-SD 58.6 fL; WBC 4.61 10^3/uL (4.4-10.8)
[2021-09-03 13:36] LABS: Diff Comment RBC Morph Reviewed; Macrocytosis 2+
[2021-09-03 13:44] LABS: ALT 23 U/L (16-63); AST 16 U/L (15-37); Albumin 3.5 g/dL (3.4-5.0); Alkaline Phosphatase 56 U/L (46-116); Anion Gap 8.5 mmol/L (3-11); BUN 23 mg/dL (7-18); Bilirubin, Total 0.8 mg/dL (0.2-1.0); CO2 27.5 mmol/L (21.0-32.0); CREATININE 1.3 mg/dL (0.70-1.30); Calcium 8.9 mg/dL (8.5-10.1); Chloride 105 mmol/L (98-107); Estimated GFR 53.12 (mL/min/1.73m2); Glucose 116 mg/dL (74-106); Potassium 4.2 mmol/L (3.5-5.1); Sodium 141 mmol/L (136-145); Total Protein 6.9 g/dL (6.4-8.2)
== END 2021-09-03 03:14 | disposition home or self-care (01) ==
LOC: LBO 03:14
PROVIDERS: PCP Family Medicine; Visit Provider Internal Medicine Hematology & Oncology
DX: G93.1 Anoxic brain damage, not elsewhere classified (principal)
CPT/HCPCS: 36415; 80053; 85025

== ENCOUNTER → 2021-10-23 12:43 | Outpatient (BNVA) | payer MEDICARE, SELFPAY | PROVIDERS: PCP Family Medicine; Referring Provider Family Medicine; Visit Provider Urology | DX: C67.9 Malignant neoplasm of bladder, unspecified (principal); D49.4 Neoplasm of unspecified behavior of bladder | CPT/HCPCS: 52000; 81003 ==

== ENCOUNTER → 2021-10-30 09:05 | Outpatient (BNVA) | payer MEDICARE, SELFPAY | PROVIDERS: PCP Family Medicine; Referring Provider Family Medicine; Visit Provider Urology | DX: R32 Unspecified urinary incontinence (principal); C67.9 Malignant neoplasm of bladder, unspecified; N39.0 Urinary tract infection, site not specified | CPT/HCPCS: 81003; 99213 ==

== ENCOUNTER 2021-10-30 15:00 | Outpatient (REF) | payer MEDICARE, SELFPAY | END 2021-10-30 15:01 | disposition home or self-care (01) | LOC: LBN 15:00 | PROVIDERS: PCP Family Medicine; Visit Provider Urology | DX: N39.0 Urinary tract infection, site not specified (principal) | CPT/HCPCS: 87077; 87086; 87186 ==

== ENCOUNTER 2021-11-02 02:45 | Outpatient (CLI) | payer MEDICARE, SELFPAY ==
[2021-11-02 10:44] LABS: Abs Immature Grans 0.02 10^3/uL (0.0-0.06); Absolute Basophil Count 0.05 10^3/uL (0.0-0.2); Absolute Eosinophil Count 0.08 10^3/uL (0.0-0.7); Absolute Lymphocyte Count 1.43 10^3/uL (1.2-3.4); Absolute Monocyte Count 0.34 10^3/uL (0.1-0.8); Absolute Neutrophil Count 2.32 10^3/uL (1.2-6.7); Basophils % 1.2; Eosinophils % 1.9; HCT 41.1 % (40.0-50.0); HGB 13.6 g/dL (13.5-17.5); Immature Grans % 0.5; Lymphocytes % 33.7; MCH 37.8 pg (27.0-33.0); MCHC 33.1 % (32.0-36.0); MCV 114 fL (80-95); MPV 11.2 fL (8.0-11.0); Neutrophils % 54.7; Platelet Count 388 10^3/uL (130-400); RDW 14.6 % (11.8-14.1); RDW-SD 62.4 fL; WBC 4.24 10^3/uL (4.4-10.8)
[2021-11-02 11:10] LABS: Diff Comment RBC Morph Reviewed; Macrocytosis 2+
[2021-11-02 11:22] LABS: ALT 20 U/L (16-63); AST 18 U/L (15-37); Albumin 3.7 g/dL (3.4-5.0); Alkaline Phosphatase 60 U/L (46-116); Anion Gap 6.1 mmol/L (3-11); BUN 25 mg/dL (7-18); Bilirubin, Total 0.8 mg/dL (0.2-1.0); CO2 30.9 mmol/L (21.0-32.0); CREATININE 1.4 mg/dL (0.70-1.30); Calcium 9.1 mg/dL (8.5-10.1); Chloride 105 mmol/L (98-107); Estimated GFR 50.81 (mL/min/1.73m2); Glucose 101 mg/dL (74-106); Potassium 4.1 mmol/L (3.5-5.1); Sodium 142 mmol/L (136-145)
== END 2021-11-02 02:46 | disposition home or self-care (01) ==
LOC: LBO 02:45
PROVIDERS: Nurse Practitioner Adult Health; PCP Family Medicine; Visit Provider Internal Medicine Hematology & Oncology
DX: D47.3 Essential (hemorrhagic) thrombocythemia (principal)
CPT/HCPCS: 36415; 80053; 85025

== ENCOUNTER 2021-11-05 20:23 | Outpatient (REF) | payer MEDICARE, SELFPAY ==
[2021-11-05 15:43] LABS: Bilirubin Negative (Negative); Blood Negative (Negative); Clarity Clear (Clear); Glucose Negative (Negative); Ketones Negative (Negative); Leukocyte Esterase Negative (Negative); Nitrite Negative (Negative); Urobilinogen 0.2 EU/dL (Up TO 0.2)
== END 2021-11-05 20:24 | disposition home or self-care (01) ==
LOC: LBN 20:23
PROVIDERS: PCP Family Medicine; Visit Provider Nurse Practitioner Gerontology
DX: N39.0 Urinary tract infection, site not specified (principal)
CPT/HCPCS: 81003; 87086

== ENCOUNTER → 2021-11-12 09:01 | Outpatient (BNVA) | payer MEDICARE, SELFPAY | PROVIDERS: PCP Family Medicine; Referring Provider Family Medicine; Visit Provider Urology | DX: N39.44 Nocturnal enuresis (principal) | CPT/HCPCS: 51798; 99213 ==

== ENCOUNTER → 2022-02-18 10:47 | Outpatient (BNVA) | payer MEDICARE, SELFPAY | PROVIDERS: PCP Family Medicine; Referring Provider Family Medicine; Visit Provider Student in an Organized Health Care Education/Training Program | DX: M65.342 Trigger finger, left ring finger (principal) | CPT/HCPCS: 20550; J1030 ==

== ENCOUNTER 2022-03-08 03:02 | Outpatient (CLI) | payer MEDICARE, SELFPAY ==
[2022-03-08 14:05] LABS: Abs Immature Grans 0.02 10^3/uL (0.0-0.06); Absolute Basophil Count 0.04 10^3/uL (0.0-0.2); Absolute Eosinophil Count 0.08 10^3/uL (0.0-0.7); Absolute Lymphocyte Count 1.59 10^3/uL (1.2-3.4); Absolute Neutrophil Count 3.26 10^3/uL (1.2-6.7); Basophils % 0.7; Eosinophils % 1.4; HCT 41.8 % (40.0-50.0); HGB 13.7 g/dL (13.5-17.5); Immature Grans % 0.4; Lymphocytes % 28.4; MCH 38.6 pg (27.0-33.0); MCHC 32.8 % (32.0-36.0); MCV 118 fL (80-95); Monocytes % 10.7; Neutrophils % 58.4; Platelet Count 452 10^3/uL (130-400); RBC 3.55 10^6/uL (4.36-5.78); RDW 13.9 % (11.8-14.1); RDW-SD 61.5 fL; WBC 5.59 10^3/uL (4.4-10.8)
[2022-03-08 14:20] LABS: ALT 17 U/L (16-63); AST 23 U/L (15-37); Albumin 3.9 g/dL (3.4-5.0); Alkaline Phosphatase 68 U/L (46-116); Anion Gap 5.6 mmol/L (3-11); BUN 27 mg/dL (7-18); Bilirubin, Total 0.9 mg/dL (0.2-1.0); CO2 31.4 mmol/L (21.0-32.0); CREATININE 1.2 mg/dL (0.70-1.30); Calcium 9.1 mg/dL (8.5-10.1); Chloride 106 mmol/L (98-107); Estimated GFR 61.13 (mL/min/1.73m2); Glucose 93 mg/dL (74-106); Potassium 4.1 mmol/L (3.5-5.1); Sodium 143 mmol/L (136-145)
== END 2022-03-08 03:03 | disposition home or self-care (01) ==
PROVIDERS: PCP Family Medicine; Visit Provider Nurse Practitioner Adult Health
DX: D47.3 Essential (hemorrhagic) thrombocythemia (principal)
CPT/HCPCS: 36415; 80053; 85025

== ENCOUNTER → 2022-03-29 11:19 | Outpatient (BNVA) | payer MEDICARE, SELFPAY | PROVIDERS: PCP Family Medicine; Referring Provider Family Medicine; Visit Provider Urology | DX: N39.44 Nocturnal enuresis (principal) | CPT/HCPCS: 51798; 81003; 99214 ==

== ENCOUNTER → 2022-04-20 12:51 | Outpatient (BNVA) | payer MEDICARE, SELFPAY | PROVIDERS: PCP Family Medicine; Visit Provider Urology | DX: N39.44 Nocturnal enuresis (principal); C67.9 Malignant neoplasm of bladder, unspecified | CPT/HCPCS: 52000; 81003; 99214 ==

== ENCOUNTER 2022-04-26 06:17 | Day surgery (SDC) | payer MEDICARE, SELFPAY ==
[2022-04-26] VITALS (7 sets, daily range): BP systolic 103–127; BP diastolic 79–96; PULSE 61–87; RESP 16–18; TEMP 36.2–36.7; O2SAT 94–96; BMI 24.1
--- NOTE | 2022-04-26 06:58 | ANES.PREOP_ITS ---
General Info Date of Service Date Performed: 04/26/22 Height: 6 ft Weight: 80.8 kg Body Mass Index (BMI): 24.1 Surgical Procedure: Operation Date: 04/26/22 07:40 Proposed Procedure Side Surgeon p Cystoscopy w/Transurethral Resection Bladder Tumor Terrance Flores MD Meds Allergies and Home Medications Allergies Allergy/AdvReac Type Severity Reaction Status Date / Time cyclobenzaprine HCl AdvReac CONFUSION Verified 04/26/22 06:34 [From Flexeril] Home Medication Medication Instructions Recorded docusate sodium 100 mg capsule 100 mg PO DAILY PRN 11/15/17 (Colace) latanoprost 0.005 % eye drops 1 drp ophthalmic (eye) HS 02/12/20 acetaminophen 500 mg tablet 1,000 mg PO TID PRN 05/30/20 aspirin 81 mg tablet,delayed 81 mg PO .EVERY OTHER DAY 07/08/20 release (Adult Aspirin Regimen) escitalopram oxalate 10 mg tablet 10 mg PO DAILY #90 tab-caps 12/23/21 (Lexapro) simvastatin 20 mg tablet (Zocor) 20 mg PO HS #90 tab-caps 12/23/21 hydroxyurea 500 mg capsule (Hydrea) 1,000 mg PO DAILY #180 tabs 01/11/22 quetiapine 25 mg tablet (Seroquel) 25 mg PO QHS #90 tabs 04/01/22 pantoprazole 40 mg tablet,delayed See Rx Instructions .Route 04/05/22 release .COMPLEX #30 tabs mirabegron 50 mg tablet,extended 50 mg PO DAILY #28 tabs 04/20/22 release 24 hr (Myrbetriq) Current Visit Medications: Current Medications Generic Name Dose Route Start Last Admin Trade Name Freq PRN Reason Stop Dose Admin Ringer's Solution 1,000 mls @ 80 mls/hr 04/26/22 06:00 IV 05/23/22 23:59 INFUSION CHERELLE Cefazolin Sodium/Dextrose 2 gm in 50 mls @ 100 mls/hr 04/26/22 06:00 Ancef Duplex IVPB 05/23/22 23:59 PREOP CHERELLE IV Miscellaneous Supplies 1 each 04/26/22 06:00 Iv Access IV 05/23/22 23:59 DIRECTED CHERELLE Sodium Chloride 0 ml 04/26/22 06:00 Normal Saline Flush 10 Ml Syr IV 05/23/22 23:59 PRN PRN Sodium Chloride 0 ml 04/26/22 06:00 Normal Saline 10 Ml Vial IJ 05/23/22 23:59 DIRECTED PRN Sterile Water 0 ml 04/26/22 06:00 Water,Injection,Sterile 10 Ml Vial IJ 05/23/22 23:59 DIRECTED PRN PFSH Active Problems Active Problems: Problem Status Onset Code Actinic keratosis L57.0 Chronic obstructive lung disease J44.9 Essential thrombocythemia 03/28/12 D47.3 Hiatal hernia 04/08/12 K44.9 Hypotension 10/16/15 I95.9 Nocturnal enuresis N39.44 Bladder neoplasm D49.4 CAD (coronary artery disease) I25.10 Physician orders for life-sustaining treatment (POLST) form indicates patient wish for [id number] status Z66 Dysphagia R13.10 Urothelial carcinoma of bladder C67.9 DNR (do not resuscitate) Z66 Weight loss R63.4 Trigger finger of left hand M65.30 Skin lesions L98.9 Medical History Medical History (Updated 04/26/22 @ 06:39 by Cristina Barakat) Bilateral low back pain without sciatica Cardiac arrest (~2005) 2006 Celiac disease (06/25/16) pt. 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 saw Miranda. Resolved with time. Thought to be secondary to brain hypoxia. Disorder of adrenal gland Diverticulosis of colon without diverticulitis colonoscopy 06/15. Dr Stanford Gonzalez GI Duodenitis Erosive esophagitis Erosive gastroesophageal reflux disease (06/09/16) SEVERE-DR. ANTOINE 06/09/16 Esophageal ulcer without bleeding Esophagitis Essential thrombocytopenia pt. states this is incorrect that he has thrombocythemia 07/04/19 Takes hydroxyurea 1000 mg daily Full incontinence of feces (08/15/17) pt. states this has resolved Gastritis Glaucoma Gross hematuria Hemoptysis, unspecified Hemorrhoids S/P SURGERY Herpes zoster Hiatal hernia Hip pain Hip pain History of tobacco use quit in 2005 History of tobacco use Hx of Raynaud's syndrome Per. pt. stated he was dx by Dr. 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 Coyne; neg 09/28/13 Dr. Antoine EGD - IV Sedation (06/09/16) 08/16/12 DR. ANTOINE 05/05/12 Dr. antoine; esophagitis 09/28/13 Dr. antoine H/O esophagogastroduodenoscopy 08/16/2012-Dr. Antoine; 05/05/12-Dr. Antoine; esophagitis 09/28/2013-Dr. Antoine H/O hemorrhoidectomy Hemorrhoidectomy History of esophagogastroduodenoscopy History of hemorrhoidectomy [place] [facility] [place]08[place]17/16[place] [facility] [place]air of inguinal hernia 2006 Left 2004 Right S/P endoscopy 02/07/13 upper endoscopy S/P inguinal hernia repair left-2005; right-2003 Status post inguinal hernia repair STEMI (~2005) Posterior lateral Per pt. was discharged from their care after cardiac rehab, and f/u with Dr. Mejia Spouse reports 2 stents reported Tobacco Smoking/Tobacco Use Status: Former Tobacco Use Passive smoking exposure: No Second hand exposure: No Alcohol Alcohol Intake: current Alcohol intake frequency: holidays/special occasions only Alcohol type: hard liquor Substance Use Substance use: Never Substance use type: does not use Details: alcohol: unknown Vital Signs and Lab Results Vital Signs Most Recent Vital Signs in EMR: Most Recent Vital Signs Temp Pulse Resp BP Pulse Ox 36.7 C 61 18 118/82 95 04/26/22 06:43 04/26/22 06:43 04/26/22 06:43 04/26/22 06:43 04/26/22 06:43 Lab Results Blood Type / Crossmatch: No Data to Display Complete Blood Count: No Data to Display Complete Metabolic Panel: No Data to Display Liver Function Panel: No Data to Display Coagulation Panel: No Data to Display Cardiac Panel: No Data to Display Arterial Blood Gas: No Data to Display Venous Blood Gas: No Data to Display Pancreas Panel: No Data to Display Thyroid Panel: No Data to Display Infectious Disease: No Data to Display Blood Cultures: No Data to Display Toxicology Panel: No Data to Display Imaging and Studies Imaging and Studies Study information below may be from another EMR and interpreted by another provider. Please see original notes in EMR for more complete details. Echocardiogram Summary: 10/23: ejection fraction was 55%. Akinesis of the basal inferior myocardium; consistent with infarction. moderate regurgit ation, Pulmonary Function Summary: 02/23: Mild obstructive airways disease with significant bronchodilator response. Anesthesia Assessment and Plan Anesthesia History Personal History: No History of Anesthesia Complications Family History: No Family History of Anesthesia Complications Exercise Tolerance Exercise Tolerance: Metabolic Equivalents>4 Pertinent Negatives Pertinent Negatives: No Symptoms of GERD Cardiac & Pulmonary Exam Cardiac Exam: Normal S1/S2 Heart Sounds Pulmonary Exam: Clear Bilateral Breath Sounds Implantable Cardiac Device Does patient have a Pacemaker or an ICD?: No Airway Exam Known Difficult Airway: No Mallampati Class: 2 Mouth Opening: Narrow (< 3cm) Thyromental Distance: Greater than 3 cm Neck Range of Motion: Limited ROM Neck Circumference: Normal Teeth Condition: Normal Dentition ASA Classification ASA Score: ASA 3 Emergency Case?: No NPO Status NPO Status: NPO Clears >2 hours, Solids >8 hours Anesthesia Plan Resuscitation Status: DNR Fully Suspended During Perioperative Period Anesthesia Technique: General Anesthesia Airway Planned: Natural Airway Monitors Used: Standard Monitors Preoperative Comments:: No echo since 2016. Discussed increase cardiac risk given repeat echo was indicated in 2018 given moderate MR. Pt. denies lethargy, SOB or chest pain since 2006. Patient wishes to proceed with surgery, accepts risk of cardiac complications to include AK/, although I believe these to be low/moderate risk. Pt. will followup with PCP to get echo in near future and we will proceed with possible bladder tumor removal today.
--- NOTE | 2022-04-26 07:05 | W.PM.HP.N ---
Date of service: 04/26/22 Time of Service: 07:06 Assessment and Plan Assessment and plan (1) Bladder neoplasm: Status: Acute Assessment and plan: For cystoscopy with TURBT/fulguration of tumors History of Present Illness History of Present Illness Chief Complaint: Bladder cancer Narrative: This is an 81 year old man who has a history of low grade, noninvasive urothelial cell carcinoma of the bladder. On a recent surveillance cystoscopy, we identified a papillary lesion on the left lateral wall of the bladder. He presents for TURBT. He has not seen any gross hematuria. Review of Systems Constitutional Comments: No fevers or chills No vision change or dysphasia No diabetes or thyroid dysfunction Short of breath with exertion. No sputum production or hemoptysis No chest pain or palpitations Hx GERD/hiatal hernia. No hepatitis, ulcers, jaundice, diarrhea or constipation Dementia. 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 ANTOINE Hypotension (Chronic 10/16/15) Nocturnal enuresis (Acute) Bladder neoplasm (Acute) CAD (coronary artery disease) (Chronic) Physician orders for life-sustaining treatment (POLST) form indicates patient wish for re-[id number] status (Acute) blood transfusions - ask , [place] Dysphagia (Acute) esphophageal mass - w/u in progress Urothelial carcinoma of bladder (Acute) favors high grade DNR (do not resuscitate) (Acute) Weight loss (Acute) Trigger finger of left hand (Acute) Skin lesions (Acute) Medical History (Updated 04/26/22 @ 06:39 by Cristina Barakat) Bilateral low back pain without sciatica Cardiac arrest (~2005) 2005 Celiac disease (06/25/16) pt. 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 saw Miranda. Resolved with time. Thought to be secondary to brain hypoxia. Disorder of adrenal gland Diverticulosis of colon without diverticulitis colonoscopy 06/15. Dr Mitz Cygnet GI Duodenitis Erosive esophagitis Erosive gastroesophageal reflux disease (06/09/16) SEVERE-DR. ANTOINE 06/09/16 Esophageal ulcer without bleeding Esophagitis Essential thrombocytopenia pt. states this is incorrect that he has thrombocythemia 07/04/19 Takes hydroxyurea 1000 mg daily Full incontinence of feces (08/15/17) pt. states this has resolved Gastritis Glaucoma Gross hematuria Hemoptysis, unspecified Hemorrhoids S/P SURGERY Herpes zoster Hiatal hernia Hip pain Hip pain History of tobacco use quit in 2005 History of tobacco use Hx of Raynaud's syndrome Per. pt. stated he was dx by Dr. 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 Coyne; neg 09/28/13 Dr. Antoine EGD - IV Sedation (06/09/16) 08/16/12 DR. ANTOINE 05/05/12 Dr. antoine; esophagitis 09/28/13 Dr. antoine H/O esophagogastroduodenoscopy 08/16/2012-Dr. Antoine; 05/05/12-Dr. Antoine; esophagitis 09/28/2013-Dr. Antoine H/O hemorrhoidectomy Hemorrhoidectomy History of esophagogastroduodenoscopy History of hemorrhoidectomy History of [place] fundoplication [place]. Schneider [place] [facility] [place] Paraesophageal hernia repair (08/17/16[place] [facility] [place]air of inguinal hernia 2006 Left 2004 Right S/P endoscopy 02/07/13 upper endoscopy S/P inguinal hernia repair left-2005; right-2003 Status post inguinal hernia repair STEMI (~2005) Posterior lateral Per pt. was discharged from their care after cardiac rehab, and f/u with Dr. Mejia Spouse reports 2 stents reported Family History Mother No problems noted. Sister Heart disease PACEMAKER Social History Smoking/Tobacco Use Status: Former Tobacco Use Quit Date: 02/07/05 Second Hand Exposure: No Smoking risk assessment performed?: Yes Alcohol Intake: current Alcohol Intake frequency: holidays/special occasions only Alcohol type: hard liquor Drug use: Never Substance use type: does not use Details: alcohol: unknown Caregiver/Support person: No Household members: spouse Housing: house Communication Needs: Corrective Lenses Do you need help understanding health information?: Always Pets and animals: Yes Pets and animals: cat(s) Sexually active: No Do you think of yourself as: straight/heterosexual Current gender identity: male What is your relationship status?: How often do you talk on the phone with friends or family?: once per week How often do you get together with friends or relatives?: once per week How often do you attend rastafari or sikhism services?: decline to answer Do you belong to any clubs or organized social groups?: no Panel score (0-1 are the most socially isolated patients): 1 What type of physical activity do you participate in: walking Duration: 15-30 minutes/day Frequency: 1-2 times per week Mayuri/Anabaptism: Mandaen Agree to transfusion: No Seatbelt use: always Drive intox or ride w/intox lifter/driver: No Do you feel safe at home: Yes Additional Social history: answered questions for pt. Meds Allergies and Home Medications Allergies Allergy/AdvReac Type Severity Reaction Status Date / Time cyclobenzaprine HCl AdvReac CONFUSION Verified 04/26/22 06:34 [From Flexeril] Home Medications Medication Instructions Recorded Confirmed Type docusate sodium 100 mg capsule 100 mg PO DAILY PRN 11/15/17 04/26/22 History (Colace) latanoprost 0.005 % eye drops 1 drp ophthalmic (eye) HS 02/12/20 04/26/22 History acetaminophen 500 mg tablet 1,000 mg PO TID PRN 05/30/20 04/26/22 History aspirin 81 mg tablet,delayed 81 mg PO .EVERY OTHER DAY 07/08/20 04/26/22 History release (Adult Aspirin Regimen) escitalopram oxalate 10 mg tablet 10 mg PO DAILY #90 tab-caps 12/23/21 04/26/22 Rx (Lexapro) simvastatin 20 mg tablet (Zocor) 20 mg PO HS #90 tab-caps 12/23/21 04/26/22 Rx hydroxyurea 500 mg capsule (Hydrea) 1,000 mg PO DAILY #180 tabs 01/11/22 04/26/22 Rx quetiapine 25 mg tablet (Seroquel) 25 mg PO QHS #90 tabs 04/01/22 04/26/22 Rx pantoprazole 40 mg tablet,delayed See Rx Instructions .Route 04/05/22 04/26/22 Rx release .COMPLEX #30 tabs mirabegron 50 mg tablet,extended 50 mg PO DAILY #28 tabs 04/20/22 04/26/22 Rx release 24 hr (Myrbetriq) Exam Const General: cooperative Orientation: alert and awake Neck Neck: supple Resp Effort & Inspection: normal respiratory effort Auscultation: clear to auscultation bilaterally Cardio Rate: regular rate Rhythm: regular rhythm GI Inspection: normal to inspection Palpation: soft and no masses Neuro General: patient alert, patient awake and patient oriented x3 Results Last Vital Signs Temp 36.7 C 04/26/22 06:43 Pulse 61 04/26/22 06:43 Resp 18 04/26/22 06:43 BP 118/82 04/26/22 06:43 Pulse Ox 95 04/26/22 06:43 Time Spent Time spent with Patient: <40 minutes Time was spent: care coordination
[2022-04-26] MEDS: Lactated Ringers 1,000 ML 80 ML IV (07:15)
[2022-04-26] MEDS: ceFAZolin 2 GM/50 ML BAG IVPB (07:33)
[2022-04-26] MEDS: Lidocaine 2% Jelly 11 ML SYR (07:50)
--- NOTE | 2022-04-26 07:56 | BLADDER_PTH ---
PATIENT: Sy Pritchett LOC: [facility] U#:[id number] AGE/SX: 81/M ROOM: RE04/26/[address]: Terrance Flores MD : [id number] BED: DIS: 04/26/2022 SPEC #: [id number] RECD: 04/26/22 11:30 STATUS: ALAN RE #: [id number] BALTAZAR: 04/26/22 07:[address]: Terrance Flores DEPT: Surgical Specimen RECD BY: Jackie Lin ENTERED: 04/26/22 11:31 SP TYPE: Bladder OTHR DR: Iris Mejia MD, DC Tissues: 1 - BLADDER BIOPSY Procedures: GROSS AND MICRO LEVEL 5 Comments: [id number]
--- NOTE | 2022-04-26 08:02 | W.PM.DSUDISC ---
Date of service: 04/26/22 Time of Service: 08:03 Discharge Plan Disposition Condition: Stable Discharge Details Reason For Visit: cystoscopy with TURBT Attending Provider: Terrance Flores Primary Care Provider: Iris Mejia Home Meds and New Rx's Prescriptions: No Action aspirin [Adult Aspirin Regimen] 81 mg tablet,delayed release (DR/EC) 81 mg PO .EVERY OTHER DAY Myrbetriq 50 mg tablet extended release 24 hr 50 mg PO DAILY Qty: 28 0RF simvastatin [Zocor] 20 mg tablet 20 mg PO HS Qty: 90 4RF escitalopram oxalate [Lexapro] 10 mg tablet 10 mg PO DAILY Qty: 90 12RF hydroxyurea [Hydrea] 500 mg capsule 1,000 mg PO DAILY Qty: 180 3RF Patient Comments: states pt takes 3 daily two days a week, the other five days he takes 2 tabs daily. quetiapine [Seroquel] 25 mg tablet 25 mg PO QHS Qty: 90 4RF pantoprazole 40 mg tablet,delayed release (DR/EC) See Rx Instructions .ROUTE .COMPLEX Qty: 30 12RF Dose Instruction: TAKE ONE TABLET BY MOUTH TWICE A DAY Rx Instructions: TAKE ONE TABLET BY MOUTH TWICE A DAY docusate sodium [Colace] 100 mg capsule 100 mg PO DAILY PRN acetaminophen 500 mg Tablet 1,000 mg PO TID PRN latanoprost 0.005 % drops 1 drp ophthalmic (eye) HS Patient Comments: INSTILL 1 DROP INTO BOTH EYES AT BEDTIME Discharge Instructions Additional Instructions: followup 1 to 2 weeks for pathology results no lifting over 10 pounds for 5 to 7 days Activity:: see additional instructions Shower/Bathe:: 24 hours Diet:: As Tolerated DS: Diagnosis Discharge Diagnosis (1) Bladder neoplasm: Status: Acute
--- NOTE | 2022-04-26 08:06 | ROE_ITS ---
Date of service: 04/26/22 Time of Service: 08:06 Operative Note Operative Note PRE-OP DIAGNOSIS: Bladder cancer POST-OP DIAGNOSIS: same pathology pending (2 to 5 cm) PROCEDURE: cystoscopy with TURBT SURGEON: Terrance Flores ANESTHESIA TYPE: General:No Airway Refer to Anesthesia Record ESTIMATED BLOOD LOSS: 25 PATHOLOGY: other (bladder tumor) COMPLICATIONS: None Patient was transported to: same day Patient's condition: stable Indications: This is an 81-year-old gentleman who has a history of low-grade, noninvasive urothelial cell carcinoma of the bladder. We recently did a surveillance cystoscopy in the office. We identified some papillary tissue on the left lateral wall of the bladder. We felt the area was too large to cauterize in the office. He presents for transurethral resection/fulguration of the tumor with anesthesia on board. Findings: Papillary lesion on the left bladder wall. The lesion measured between 2 and 5 cm in largest dimension Procedure Description: The patient was given preoperative antibiotics. He was brought to the operating room on 04/26/2022. After successful induction of general anesthesia without intubation, he was placed in the dorsal lithotomy position. His genitalia was prepped and draped. 2% Xylocaine jelly was instilled into the urethra to act as a local anesthetic. A 24 Indonesian resectoscope sheath was passed through the urethra into the bladder. The urethra and bladder were inspected using the visual obturator and a 30 degree lens. The pendulous, bulbar and membranous urethra appeared normal with no strictures. The prostatic urethra showed some lateral lobe enlargement but no significant median lobe. The bladder and neck was entered and the bladder mucosa was inspected. As with our office cystoscopy, we identified a papillary lesion on the left lateral wall of the bladder. The lesion did not involve the left ureteral orifice. We then removed the visual obturator and switched to an Byrd working element. We performed transurethral resection of the visible tumor using bi polar cautery. All resected tissue was evacuated and sent to pathology for permanent section. The resection site was then cauterized using coagulation current. The resection site was inspected and no active bleeding was seen. We elected not to place a Garica catheter following this procedure. The bladder was emptied and the resectoscope was removed. He tolerated this procedure well with no complications.
--- NOTE | 2022-04-26 08:18 | ANES.POST_ITS ---
Postoperative Evaluation Date, Time and Location Date Performed: 04/26/22 Time Performed: 08:19 Patient Location: Day Surgery Unit Vital Signs Most Recent Imported Vital Signs: Most Recent Vital Signs Temp Pulse Resp BP Pulse Ox 36.5 C 87 18 111/96 H 96 04/26/22 08:10 04/26/22 08:10 04/26/22 08:10 04/26/22 08:10 04/26/22 08:10 Pain Score Most Recent Pain Score: Most Recent Pain Score Pain Level 0 04/26/22 08:10 Assessment Mental Status: Awake (Alert & Oriented to Patient Baseline) Airway and Respiratory Function: Patent airway with normal (patient baseline) respiratory exam Cardiovascular Function: Hemodynamically Stable Hydration Status: Adequately Hydrated Nausea & Vomiting: No Nausea or Vomiting Pain: Pt. Denies Any Pain Peripheral Nerve Block: Patient did not receive a nerve block Teaching Patient Teaching: Advised to seek followup for the following concerns (See e xplanation) Concerns: Cardiac Optimization (Need echocardiogram due to moderate MR in 2016 finding.)
[2022-04-26] MEDS: Phenazopyridine 200 MG TAB PO (08:45)
[2022-04-26] MEDS: Normal Saline Flush 10 ML SYR IV (09:50)
--- NOTE | 2022-04-26 16:39 | NUR.NOTE ---
1512: Pt. taken via wheelchair accompanied by this nurse and spouse. Pt. seen by and Olga Lidia RICHMOND for interventions. 1540:Pt. taken via wheelchair by this nurse after interventions accompanied by spouse to car outside of [facility] driven by [place].Nursing Note:
== END 2022-04-26 15:12 | disposition home or self-care (01) ==
PROVIDERS: PCP Family Medicine; Visit Provider Urology
PROC: 0TBB8ZZ Excision of Bladder, Via Natural or Artificial Opening Endoscopic (ICD-10-PCS; CPT 52235; principal; 2022-04-26 07:30)
DX: D49.4 Neoplasm of unspecified behavior of bladder (principal); C67.9 Malignant neoplasm of bladder, unspecified
CPT/HCPCS: 52235; 88305; 88307; J0690; J1100; J1885; J2405

== ENCOUNTER → 2022-04-29 07:58 | Outpatient (BNVA) | payer MEDICARE, SELFPAY | PROVIDERS: PCP Family Medicine; Referring Provider Family Medicine; Visit Provider Nurse Practitioner Gerontology | DX: Z46.6 Encounter for fitting and adjustment of urinary device (principal); Z96.0 Presence of urogenital implants; R33.8 Other retention of urine; N99.89 Other postprocedural complications and disorders of genitourinary system | CPT/HCPCS: 99211 ==

== ENCOUNTER → 2022-05-21 14:53 | Outpatient (BNVA) | payer MEDICARE, SELFPAY | PROVIDERS: PCP Family Medicine; Referring Provider Family Medicine; Visit Provider Urology | DX: N39.44 Nocturnal enuresis (principal); Z98.890 Other specified postprocedural states; C67.9 Malignant neoplasm of bladder, unspecified; F03.90 Unspecified dementia, unspecified severity, without behavioral disturbance, psychotic disturbance, mood disturbance, and anxiety | CPT/HCPCS: 99213 ==

== ENCOUNTER 2022-05-21 17:18 | Outpatient (REF) | payer MEDICARE, SELFPAY ==
[2022-05-21 16:35] LABS: Anion Gap 6.9 mmol/L (3-11); BUN 28 mg/dL (7-18); CO2 29.1 mmol/L (21.0-32.0); CREATININE 1.4 mg/dL (0.70-1.30); Calcium 9.3 mg/dL (8.5-10.1); Chloride 108 mmol/L (98-107); Estimated GFR 50.81 (mL/min/1.73m2); Glucose 103 mg/dL (74-106); Potassium 4.5 mmol/L (3.5-5.1); Sodium 144 mmol/L (136-145)
== END 2022-05-21 17:19 | disposition home or self-care (01) ==
LOC: LBN 17:18
PROVIDERS: PCP Family Medicine; Visit Provider Urology
DX: N39.44 Nocturnal enuresis (principal); C67.9 Malignant neoplasm of bladder, unspecified
CPT/HCPCS: 80048

== ENCOUNTER 2022-06-02 19:08 | Emergency (ER) | payer MEDICARE, SELFPAY ==
[2022-06-02] VITALS (15 sets, daily range): BP systolic 116–131; BP diastolic 74–90; PULSE 64–98; RESP 10–24; TEMP 36.5; O2SAT 91–97
--- NOTE | 2022-06-02 18:45 | RT.EKG_ITS ---
APPROVED REPORT Exam: Resting ECG Reason for Exam: dizziness Patient Location: E HR:68 bpm ECG Measurements Heart Rate 68 AXIS MN 185 P 63 QRSd 86 QRS -33 QT 404 T 41 QTc 430 Conclusion Sinus rhythm...normal P axis, V-rate 60- 99 Left axis deviation...QRS axis (-30,-90) sinus rhythm, left axis,
--- NOTE | 2022-06-02 19:15 | DI.CT_ITS ---
Exam(s) CT HEAD WO EXAM: CT HEAD WO CLINICAL HISTORY: fall, facial injury. TECHNIQUE: Imaging Protocol: Axial computed tomography images with coronal and sagittal reformatted images were created and reviewed COMPARISON: No priors for comparison. FINDINGS: Ventricles and Extra axial spaces: Normal in size and morphology for the patient's age. Hemorrhage: None. Cerebral parenchyma: There is no evidence of an acute territorial infarct. There are areas of decrea sed attenuation in the white matter consistent with small vessel ischemic disease. 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 Midline shift: None. Brainstem/Cerebellum: Normal. Calvarium: Normal. Visualized Paranasal sinuses/Mastoids: There is complete opacification of the right maxillary sinus. The remaining visualized paranasal sinuses and mastoid air cells are clear. Soft Tissues: Unremarkable. IMPRESSION: No acute intracranial process. RADIATION DOSE DELIVERED: 1,674.24mGy.cm Total DLP DATA REPOSITORY: All CT scans at this facility are submitted to the National Radiology Data Registry (NRDR) Dose Index Registry (DIR) with the [employer] ([employer]). RADIATION OPTIMIZATION: All CT scans at this facility use at least one of these dose optimization te chniques: automated exposure control; mA and/or kV adjustment per patient size (includes targeted exa ms where dose is matched to clinical indication); or iterative reconstruction.
--- NOTE | 2022-06-02 19:15 | DI.RAD_ITS ---
Exam(s) XR CHEST 2V PA LATERAL EXAM: XR CHEST 2V PA LATERAL CLINICAL HISTORY: fall, hypoxia TECHNIQUE: 2D digital imaging was performed of the chest. Two images were obtained. PA and lateral views were obtained. COMPARISON: CR,XR XR CHEST 2V PA LATERAL from 10/25/2018 CR XR RIBS RT W PA LAT CHEST from 08/18/2020 FINDINGS: MEDIASTINUM: Normal. HEART: Normal. PULMONARY VASCULATURE: Normal. LUNGS: Clear. PLEURAL SPACE: No pleural effusion or pneumothorax. BONE:Within normal limits for the patient's age. OTHER FINDINGS:Normal. IMPRESSION: No acute pulmonary findings. DATA REPOSITORY: RADIATION DOSE DELIVERED:
--- NOTE | 2022-06-02 19:27 | W.ED.GENAD ---
Discharge Plan Disposition Patient Disposition: Home Condition: Improving Discharge Details Chief Complaint: [id number] Clinical Impression: Syncope Primary Care Provider: Iris Mejia ED Provider: Jass Negron Home Meds and New Rx's Prescriptions: No Action aspirin [Adult Aspirin Regimen] 81 mg tablet,delayed release (DR/EC) 81 mg PO .EVERY OTHER DAY simvastatin [Zocor] 20 mg tablet 20 mg PO HS Qty: 90 4RF escitalopram oxalate [Lexapro] 10 mg tablet 10 mg PO DAILY Qty: 90 12RF hydroxyurea [Hydrea] 500 mg capsule 1,000 mg PO DAILY Qty: 180 3RF Patient Comments: states pt takes 3 daily two days a week, the other five days he takes 2 tabs daily. quetiapine [Seroquel] 25 mg tablet 25 mg PO QHS Qty: 90 4RF pantoprazole 40 mg tablet,delayed release (DR/EC) See Rx Instructions .ROUTE .COMPLEX Qty: 30 12RF Dose Instruction: TAKE ONE TABLET BY MOUTH TWICE A DAY Rx Instructions: TAKE ONE TABLET BY MOUTH TWICE A DAY desmopressin [DDAVP] 0.2 mg tablet 0.2 mg PO QHS Qty: 30 0RF Rx Instructions: Start taking 1 week prior to next appointment. Will need blood work at that time. docusate sodium [Colace] 100 mg capsule 100 mg PO DAILY PRN acetaminophen 500 mg Tablet 1,000 mg PO TID PRN latanoprost 0.005 % drops 1 drp ophthalmic (eye) HS Patient Comments: INSTILL 1 DROP INTO BOTH EYES AT BEDTIME Discharge Instructions Instructions: Syncope (ED) Additional Instructions: Please follow-up with your primary care physician. Please return to the emergency department for any worsening symptoms Medical Decision Making 81-year-old male history of coronary disease presents after syncopal episode while urinating, went from a seated to a standing position and then felt unsteady while urinating. Fell to the ground hit his face no complete loss of consciousness per patient. Patient is alert and oriented moving all extremities following commands appropriate behavior and speech. Does have superficial contusion to upper and lower lip, no dental fractures no evidence of malocclusion. Hemodynamically stable neurologically intact. Likely vasovagal episode in the setting of urination versus orthostatic episode in the setting of going from a seated to a standing position lower suspicion for ACS PE or aortic pathology. No evidence of CVA or TIA at this time. However given age and comorbidities will obtain basic labs CT head chest x-ray EKG. Disposition likely home pending normal evaluation. 21: 18 patient resting comfortably no acute distress. Labs and imaging unremarkable. Consider likely vasovagal/orthostatic event. Home care instructions and return precautions given HPI General Date/Time Provider Initiated Documentation: 06/02/22 19:17. HPI Narrative: 81-year-old male history of coronary disease presents after syncopal episode/dizzy spell while urinating, went from a seated to a standing position and while urinating felt dizzy and unsteady fell to the ground hit his face, denies complete loss of consciousness. Denies headache nausea vomiting chest pain or shortness of breath. Usually ambulates with a cane Related Data Home Medications Medication Instructions Recorded Confirmed docusate sodium 100 mg capsule 100 mg PO DAILY PRN 11/15/17 04/29/22 (Colace) latanoprost 0.005 % eye drops 1 drp ophthalmic (eye) HS 02/12/20 04/29/22 acetaminophen 500 mg tablet 1,000 mg PO TID PRN 05/30/20 04/29/22 aspirin 81 mg tablet,delayed 81 mg PO .EVERY OTHER DAY 07/08/20 04/29/22 release (Adult Aspirin Regimen) escitalopram oxalate 10 mg tablet 10 mg PO DAILY #90 tab-caps 12/23/21 04/29/22 (Lexapro) simvastatin 20 mg tablet (Zocor) 20 mg PO HS #90 tab-caps 12/23/21 04/29/22 hydroxyurea 500 mg capsule (Hydrea) 1,000 mg PO DAILY #180 tabs 01/11/22 04/29/22 quetiapine 25 mg tablet (Seroquel) 25 mg PO QHS #90 tabs 04/01/22 04/29/22 pantoprazole 40 mg tablet,delayed See Rx Instructions .Route 04/05/22 04/29/22 release .COMPLEX #30 tabs desmopressin 0.2 mg tablet (DDAVP) 0.2 mg PO QHS #30 tabs 05/11/22 05/21/22 Previous Rx's Medication Instructions Recorded escitalopram oxalate 10 mg tablet 10 mg PO DAILY #90 tab-caps 12/23/21 (Lexapro) simvastatin 20 mg tablet (Zocor) 20 mg PO HS #90 tab-caps 12/23/21 hydroxyurea 500 mg capsule (Hydrea) 1,000 mg PO DAILY #180 tabs 01/11/22 quetiapine 25 mg tablet (Seroquel) 25 mg PO QHS #90 tabs 04/01/22 pantoprazole 40 mg tablet,delayed See Rx Instructions .Route 04/05/22 release .COMPLEX #30 tabs desmopressin 0.2 mg tablet (DDAVP) 0.2 mg PO QHS #30 tabs 05/11/22 Allergies Allergy/AdvReac Type Severity Reaction Status Date / Time cyclobenzaprine HCl AdvReac CONFUSION Verified 04/26/22 06:34 [From Flexeril] General Stated Complaint: [id number] DAWN: 3 Review of Systems Narrative: Review of Systems Constitutional: negative Eyes: negative ENT: Facial contusion Cardiovascular: Syncope Respiratory: negative Gastrointestinal: negative : negative Musculoskeletal: negative Skin: negative Neurologic: negative Psych: negative PFSH All Active Problems (Updated 06/02/22 @ 21:19 by Jass Negron MD) Syncope (Chronic) Mitral regurgitation (Chronic) Actinic keratosis (Acute) Chronic obstructive lung disease (Chronic) FEV1 70% 02/20 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 saw [facility]. Resolved with time. Thought to be secondary to brain hypoxia. Disorder of adrenal gland Diverticulosis of colon without diverticulitis colonoscopy 06/15. Dr Stanford Gonzalez GI Duodenitis Erosive esophagitis Erosive gastroesophageal reflux disease (06/09/16) SEVERE-DR. ANTOINE 06/09/16 Esophageal ulcer without bleeding Esophagitis Essential thrombocytopenia pt. states this is incorrect that he has thrombocythemia 07/04/19 Takes hydroxyurea 1000 mg daily Full incontinence of feces (08/15/17) pt. states this has resolved Gastritis Glaucoma Gross hematuria Hemoptysis, unspecified Hemorrhoids S/P SURGERY Herpes zoster Hiatal hernia Hip pain Hip pain History of tobacco use quit in 2005 History of tobacco use Hx of Raynaud's syndrome Per. pt. stated he was dx by Dr. 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 Coyne; neg 09/28/13 Dr. Antoine EGD - IV Sedation (06/09/16) 08/16/12 DR. ANTOINE 05/05/12 Dr. antoine; esophagitis 09/28/13 Dr. antoine H/O esophagogastroduodenoscopy 08/16/2012-Dr. Antoine; 05/05/12-Dr. Antoine; esophagitis 09/28/2013-Dr. Antoine H/O hemorrhoidectomy Hemorrhoidectomy History of esophagogastroduodenoscopy History of hemorrhoidectomy History of [place] fundoplication Dr. Schneider @ [facility] [place] 2016 Paraesophageal hernia repair (08/17/16) [facility] Repair of inguinal hernia 2006 Left 2004 Right S/P endoscopy 02/07/13 upper endoscopy S/P inguinal hernia repair left-2005; right-2003 Status post inguinal hernia repair STEMI (~2005) Posterior lateral Per pt. was discharged from their care after cardiac rehab, and f/u with Dr. Mejia Spouse reports 2 stents reported Family History Mother No problems noted. Sister Heart disease PACEMAKER Social History Smoking/Tobacco Use Status: Former Tobacco Use Quit Date: 02/07/05 Second Hand Exposure: No Smoking risk assessment performed?: Yes Alcohol Intake: current Alcohol Intake frequency: holidays/special occasions only Alcohol type: hard liquor Drug use: Never Substance use type: does not use Details: alcohol: unknown Caregiver/Support person: No Household members: spouse Housing: house Communication Needs: Corrective Lenses Do you need help understanding health information?: Always Pets and animals: Yes Pets and animals: cat(s) Sexually active: No Do you think of yourself as: straight/heterosexual Current gender identity: male What is your relationship status?: How often do you talk on the phone with friends or family?: once per week How often do you get together with friends or relatives?: once per week How often do you attend denominational or pentecostal services?: decline to answer Do you belong to any clubs or organized social groups?: no Panel score (0-1 are the most socially isolated patients): 1 What type of physical activity do you participate in: walking Duration: 15-30 minutes/day Frequency: 1-2 times per week Mayuri/Restorationist: Restorationism Agree to transfusion: No Seatbelt use: always Drive intox or ride w/intox medical delivery driver: No Do you feel safe at home: Yes Additional Social history: answered questions for pt. Exam Narrative Exam Narrative: Physical Examination General: alert, awake, cooperative, resting comfortably, no acute distress HEENT: normocephalic, contusion to upper and lower lip, no dental fractures, no evidence of malocclusion, no epistaxis; PERRL, EOM intact, conjunctiva normal; no nasal discharge; moist mucous membranes, oral and pharyngeal mucosa normal, tolerating secretions Neck: supple, trachea midline; full ROM Chest: normal to inspection Respiratory: normal respiratory effort, speaking in full sentences, clear to auscultation, no wheezing, rales or rhonchi Cardiac: regular rate, regular rhythm, S1S2 intact, no murmurs rubs or gallops GI: abdomen soft, non-tender, non-distended; no palpable mass or hepatosplenomegaly Skin: no lesions, rashes or trauma appreciated Neuro: AAOx3, normal speech, moving all extremities Extremities: No signs of trauma Psych: Appropriate mood and affect Course Vital Signs Vital signs: Vital Signs Temperature 36.5 C 06/02/22 19:06 Pulse 98 H 06/02/22 19:06 Respiratory Rate 20 06/02/22 19:06 Pulse Oximetry 96 06/02/22 19:06 Temperature 36.5 C 06/02/22 19:06 Temperature Source Oral 06/02/22 19:06 Pulse 98 H 06/02/22 19:06 Respiratory Rate 20 06/02/22 19:06 Blood Pressure Position Sitting 06/02/22 19:06 Pulse Oximetry 96 06/02/22 19:06 Oxygen Delivery Method Room Air 06/02/22 19:06 Oxygen Flow Rate 0 06/02/22 19:06 Pain Level 0 06/02/22 19:06
[2022-06-02 19:54] LABS: Abs Immature Grans 0.01 10^3/uL (0.0-0.06); Absolute Basophil Count 0.03 10^3/uL (0.0-0.2); Absolute Lymphocyte Count 1.35 10^3/uL (1.2-3.4); Absolute Monocyte Count 0.63 10^3/uL (0.1-0.8); Absolute Neutrophil Count 4.31 10^3/uL (1.2-6.7); Basophils % 0.5; Eosinophils % 3.1; HCT 39.9 % (40.0-50.0); HGB 13.3 g/dL (13.5-17.5); Immature Grans % 0.2; Lymphocytes % 20.7; MCH 38.1 pg (27.0-33.0); MCHC 33.3 % (32.0-36.0); MCV 114 fL (80-95); MPV 10.9 fL (8.0-11.0); Monocytes % 9.6; Neutrophils % 65.9; Platelet Count 445 10^3/uL (130-400); RBC 3.49 10^6/uL (4.36-5.78); RDW 14.1 % (11.8-14.1); RDW-SD 59.3 fL; WBC 6.53 10^3/uL (4.4-10.8)
[2022-06-02 20:07] LABS: PTT Activated 23.3 sec (21.5-31.9)
[2022-06-02 20:16] LABS: ALT 19 U/L (16-63); AST 18 U/L (15-37); Albumin 3.7 g/dL (3.4-5.0); Alkaline Phosphatase 72 U/L (46-116); Anion Gap 5.5 mmol/L (3-11); BUN 24 mg/dL (7-18); Bilirubin, Total 0.4 mg/dL (0.2-1.0); CO2 29.5 mmol/L (21.0-32.0); CREATININE 1.2 mg/dL (0.70-1.30); Calcium 9.3 mg/dL (8.5-10.1); Chloride 106 mmol/L (98-107); Estimated GFR 61.13 (mL/min/1.73m2); Glucose 114 mg/dL (74-106); NT-proBNP 277 pg/mL (<300); Potassium 4.1 mmol/L (3.5-5.1); Sodium 141 mmol/L (136-145); Total Protein 7.1 g/dL (6.4-8.2); Troponin I < 50 ng/L (<or=60)
[2022-06-02 20:19] LABS: Diff Comment Diff Reviewed; Macrocytosis 2+
--- NOTE | 2022-06-02 20:32 | DI.VRAD_ITS ---
PROCEDURE INFORMATION: Exam: CT Head Without Contrast Exam date and time: 06/02/2022 8:15 PM Age: 81 years old Clinical indication: Injury or trauma; Other: Fall, facial injury TECHNIQUE: Imaging protocol: Computed tomography of the head without contrast. COMPARISON: No relevant prior studies available. FINDINGS: Brain: Chronic lacunar infarct involving the left cerebellum. Age-related involutional changes and chronic microvascular ischemic disease. No evidence for acute transcortical infarct. No mass effect or midline shift. No extra-axial collection. No acute intracranial hemorrhage. Basal cisterns are patent. Cerebral ventricles: No ventriculomegaly. Paranasal sinuses: Mucosal thickening involving the right maxillary sinus. Mastoid air cells: Visualized mastoid air cells are well aerated. Bones/joints: Unremarkable. No acute fracture. Soft tissues: Unremarkable. IMPRESSION: No evidence for acute transcortical infarct, acute intracranial hemorrhage, or mass effect. Dictated and Authenticated by: Sandeep Chance MD. Ordering:BALBIR Regan MD
--- NOTE | 2022-06-02 20:33 | DI.VRAD_ITS ---
PROCEDURE INFORMATION: Exam: XR Chest Exam date and time: 06/02/2022 8:23 PM Age: 81 years old Clinical indication: Other: Fall, hypoxia TECHNIQUE: Imaging protocol: Radiologic exam of the chest. Views: 2 views. COMPARISON: CR XR RIBS RT W PA LAT CHEST 08/18/2020 11:32 AM FINDINGS: Lungs: Clear lungs. Pleural spaces: No pneumothorax. No sizable pleural effusion. Heart/Mediastinum: No cardiomegaly. Bones/joints: Unremarkable. IMPRESSION: Clear lungs. Dictated and Authenticated by: Sandeep Chance MD. Ordering:P.SHAKA Regan MD
== END 2022-06-02 21:38 | disposition home or self-care (01) ==
PROVIDERS: Emergency Provider Emergency Medicine; PCP Family Medicine
DX: R55 Syncope and collapse (principal); S00.531A Contusion of lip, initial encounter; I10 Essential (primary) hypertension; J44.9 Chronic obstructive pulmonary disease, unspecified; I25.10 Atherosclerotic heart disease of native coronary artery without angina pectoris; I25.2 Old myocardial infarction; Z79.82 Long term (current) use of aspirin; W19.XXXA Unspecified fall, initial encounter; W22.8XXA Striking against or struck by other objects, initial encounter
CPT/HCPCS: 80053; 93005; 99284; 70450; 71046; 83880; 84484; 85025; 85610; 85730; 93010; 99283

== ENCOUNTER 2022-06-23 02:02 | Outpatient (CLI) | payer MEDICARE, SELFPAY ==
--- NOTE | 2022-06-23 08:00 | DI.US_ITS ---
APPROVED REPORT EXAM: Comprehensive 2D, Doppler, and color-flow Echocardiogram Patient Location: Out-Patient Thread Trimmer: Glendy Zamora RDCS (AE) Indications: Mitral regurgitation, CAD Other Information Study Quality: Adequate Conclusion Normal left ventricular wall thickness. Left ventricular chamber is borderline dilated. Ejection fr action is 55 to 60% with normal wall motion Normal right ventricular size and systolic function Left atrium is borderline dilated. Right atrial size is normal Aortic valve is mildly sclerotic and trileaflet without stenosis or regurgitation Mildly thickened mitral leaflets. Moderate mitral regurgitation Tricuspid valve with mild regurgitation. Estimated right ventricular systolic pressure is 23 mmHg Wall motion Left Ventricle The left ventricle is borderline dilated The left ventricular systolic function is normal. The left v entricular ejection fraction is within the normal range. There is normal left ventricular wall thickn ess. There is normal LV segmental wall motion. There is no ventricular septal defect visualized. LVEF is 55-60%. Right Ventricle The right ventricle is normal size. The right ventricular systolic function is normal. The RVSP is 23 .2_ mmHg. Atria Left atrium is borderline dilated. The right atrium size is normal. The interatrial septum is intact with no evidence for an atrial septal defect. Aortic Valve The Aortic valve is sclerotic. Aortic valve is trileaflet. There is no aortic valvular stenosis. No a ortic regurgitation is present. Mitral Valve Mitral valve leaflets are mildly thickened. No evidence of mitral valve stenosis. Moderate mitral reg urgitation. Tricuspid Valve The tricuspid valve is normal in structure. There is no tricuspid valve stenosis. Mild tricuspid regu rgitation. Pulmonic Valve The pulmonary valve is normal in structure. There is no pulmonic valvular stenosis. There is no pulmo dora valvular regurgitation. Great Vessels The aortic root is normal in size. The ascending aorta is normal in size. Aortic arch is not well vis ualized. IVC is normal in size and collapses >50% with inspiration. Pericardium There is no pericardial effusion. 2D Dimensions IVSD d PLAX 0.95 cm M: 0.6-1.2 LV Vol A2C d MOD 178.4 mL LVPW d PLAX 0.91 cm M: 0.6 - 1.2 LV Vol A4C d MOD 146.5 mL LVID d PLAX 5.66 cm M: 4.2 - 5.8 LA vol/ BSA A2C s A-L 24.5 mL/m2 LVDs 4.10 cm M: 2.5 - 4.0 LA vol/ BSA A4C s A-L 35.2 mL/m2 Ao Root d 3.01 cm M: 3.1 - 3.7 LA Vol/ BSA Biplane s A-L 31.3 mL/m2 Ao Asc Diam d 3.05 cm M: 2.6 - 3.4 LA Area A4C s MOD 22.09 cm2 LV EF Teichholz 51.6 % LA Area A2C s MOD 17.51 cm2 LVEF (Elliott's) 53.28 % M: 52 - 72 LV EF A4C MOD 53.2 % LV Volume 122.42 mL M: 62 - 150 LV EF A2C MOD 52.3 % LV Volume Index 60.00 mL/m2 M: 34 - 74 LV EF Biplane MOD 53.3 % LV Vol Biplane MOD 164.2 mL SV 87.50 mL FS 26.70 % SV Index 42.95 mL/m2 M-Mode TAPSE 2.22 cm (M/F) >1.7 LV Diastology E/A Ratio 0.9 MV E Vmax 0.50 (0.4-1.3 m/s) MV A Vmax 0.55 (0.4-1.3 m/s) MV E/A Ratio 0.84 Aortic Valve LVOT Area 3.74 cm2 AoV Area Vmax 2.18 cm2 LVOT Vmax 0.78 m/s AoV Area/ BSA (Vmax) 1.07 cm2/m2 LVOT Mean Joce. 0.49 m/s DAMIAN Mean Joce. 1.97 cm2 LVOT Peak Grad 2.5 mmHg DAMIAN Mean Joce. Index 0.97 cm2/m2 LVOT Mean Grad 1.1 mmHg LVOT VTI 0.160 m LVOT Diam s 2.15 cm AoV Vmax 1.34 m/s Velocity Ratio 0.58 AoV Mean Joce. 0.92 m/s AoV Peak Grad 7.2 mmHg LVOT SV 59.93 mL AoV Mean Grad 3.8 mmHg AoV VTI 0.252 m AoV Area VTI 2.38 cm2 AoV Area/ BSA (VTI) 1.17 cm/m2 Mitral Valve MV DT 477 (160-240 msec) MR PISA Radius 0.63 cm MV PHT 138 msec MR Aliasing Velocity 0.35 m/s MV Area PHT 1.59 cm2 MR PISA 2.46 cm2 Pulmonary Valve PV Vmax 1.17 (0.5-1.5 m/s) RVOT Peak Gr. 1.63 mmHg PV Peak Grad 5.5 mmHg RVOT Mean Gr. 0.80 mmHg PV Mean Grad 2.7 mmHg RVOT VTI 0.125 m PV VTI 0.198 m RVOT Vmax 0.64 m/s Tricuspid Valve TR Peak Grad 20.2 mmHg TR Vmax 2.25 m/s RA Pressure 3.00 mmHg RVSP (TR) 23.2 mmHg
== END 2022-06-23 02:22 ==
LOC: DI 02:02
PROVIDERS: PCP Family Medicine; Visit Provider Family Medicine
DX: I25.10 Atherosclerotic heart disease of native coronary artery without angina pectoris (principal); I34.0 Nonrheumatic mitral (valve) insufficiency
CPT/HCPCS: 93306

== ENCOUNTER 2022-07-08 04:49 | Outpatient (CLI) | payer MEDICARE, SELFPAY ==
[2022-07-08 15:39] LABS: ALT 18 U/L (16-63); AST 17 U/L (15-37); Albumin 3.6 g/dL (3.4-5.0); Alkaline Phosphatase 70 U/L (46-116); Anion Gap 3.6 mmol/L (3-11); BUN 24 mg/dL (7-18); Bilirubin, Total 0.5 mg/dL (0.2-1.0); CO2 29.4 mmol/L (21.0-32.0); CREATININE 1.4 mg/dL (0.70-1.30); Calcium 8.7 mg/dL (8.5-10.1); Calculated LDL 55 mg/dL (<100); Chloride 108 mmol/L (98-107); Cholesterol 142 mg/dL (<200); Estimated GFR 50.81 (mL/min/1.73m2); Glucose 110 mg/dL (74-106); HDL Cholesterol 54 mg/dL (40-60); Potassium 4.3 mmol/L (3.5-5.1); Sodium 141 mmol/L (136-145); TSH (W/Ref FT4) 2.24 uIU/mL (0.36-3.74); Triglyceride 167 mg/dL (<150)
== END 2022-07-08 04:50 | disposition home or self-care (01) ==
PROVIDERS: PCP Family Medicine; Visit Provider Family Medicine
DX: D47.3 Essential (hemorrhagic) thrombocythemia (principal); I25.10 Atherosclerotic heart disease of native coronary artery without angina pectoris; I34.0 Nonrheumatic mitral (valve) insufficiency; I95.9 Hypotension, unspecified; R13.10 Dysphagia, unspecified
CPT/HCPCS: 36415; 80053; 80061; 84443

== ENCOUNTER 2022-09-02 04:02 | Outpatient (CLI) | payer MEDICARE, SELFPAY ==
[2022-09-02 16:09] LABS: Abs Immature Grans 0.01 10^3/uL (0.0-0.06); Absolute Basophil Count 0.02 10^3/uL (0.0-0.2); Absolute Lymphocyte Count 1.37 10^3/uL (1.2-3.4); Absolute Monocyte Count 0.41 10^3/uL (0.1-0.8); Absolute Neutrophil Count 2.22 10^3/uL (1.2-6.7); Basophils % 0.5; Eosinophils % 2.4; HGB 13.8 g/dL (13.5-17.5); Immature Grans % 0.2; Lymphocytes % 33.2; MCH 38.1 pg (27.0-33.0); MCHC 32.9 % (32.0-36.0); MCV 116 fL (80-95); MPV 11.3 fL (8.0-11.0); Monocytes % 9.9; Neutrophils % 53.8; Platelet Count 338 10^3/uL (130-400); RBC 3.62 10^6/uL (4.36-5.78); RDW 14.2 % (11.8-14.1); WBC 4.13 10^3/uL (4.4-10.8)
[2022-09-02 16:44] LABS: ALT 17 U/L (16-63); AST 18 U/L (15-37); Albumin 3.9 g/dL (3.4-5.0); Alkaline Phosphatase 66 U/L (46-116); Anion Gap 4.5 mmol/L (3-11); BUN 29 mg/dL (7-18); Bilirubin, Total 0.8 mg/dL (0.2-1.0); CO2 31.5 mmol/L (21.0-32.0); CREATININE 1.4 mg/dL (0.70-1.30); Calcium 9.2 mg/dL (8.5-10.1); Chloride 107 mmol/L (98-107); Estimated GFR 50.49 (mL/min/1.73m2); Glucose 119 mg/dL (74-106); Potassium 4.9 mmol/L (3.5-5.1); Sodium 143 mmol/L (136-145); Total Protein 7.2 g/dL (6.4-8.2)
== END 2022-09-02 04:03 | disposition home or self-care (01) ==
LOC: LBO 04:02
PROVIDERS: PCP Family Medicine; Visit Provider Internal Medicine Hematology & Oncology
DX: D47.3 Essential (hemorrhagic) thrombocythemia (principal)
CPT/HCPCS: 36415; 80053; 85025

== ENCOUNTER → 2022-11-26 12:39 | Outpatient (BNVA) | payer MEDICARE, SELFPAY | PROVIDERS: PCP Family Medicine; Referring Provider Family Medicine; Visit Provider Urology | DX: N39.44 Nocturnal enuresis (principal); D49.4 Neoplasm of unspecified behavior of bladder | CPT/HCPCS: 52000; 81003 ==

== ENCOUNTER 2022-12-13 01:07 | Outpatient (CLI) | payer MEDICARE, SELFPAY ==
[2022-12-13 12:10] LABS: Anion Gap 7.2 mmol/L (3-11); BUN 20 mg/dL (7-18); CO2 29.8 mmol/L (21.0-32.0); CREATININE 1.1 mg/dL (0.70-1.30); Calcium 9.1 mg/dL (8.5-10.1); Chloride 106 mmol/L (98-107); Estimated GFR 67.44 (mL/min/1.73m2); Glucose 81 mg/dL (74-106); Potassium 3.7 mmol/L (3.5-5.1); Sodium 143 mmol/L (136-145)
== END 2022-12-13 01:08 | disposition home or self-care (01) ==
PROVIDERS: PCP Family Medicine; Visit Provider Urology
DX: D49.4 Neoplasm of unspecified behavior of bladder (principal); N39.44 Nocturnal enuresis
CPT/HCPCS: 36415; 80048

== ENCOUNTER 2023-01-18 04:54 | Outpatient (CLI) | payer MEDICARE, SELFPAY ==
[2023-01-18 12:31] LABS: Calculated LDL 81 mg/dL (<100); Cholesterol 154 mg/dL (<200); HDL Cholesterol 56 mg/dL (40-60); Triglyceride 87 mg/dL (<150)
[2023-01-18 12:54] LABS: ALT 20 U/L (16-63); AST 18 U/L (15-37); Albumin 3.6 g/dL (3.4-5.0); Alkaline Phosphatase 72 U/L (46-116); Anion Gap 8.2 mmol/L (3-11); BUN 25 mg/dL (7-18); Bilirubin, Total 0.7 mg/dL (0.2-1.0); CO2 30.8 mmol/L (21.0-32.0); CREATININE 1.1 mg/dL (0.70-1.30); Calcium 9.2 mg/dL (8.5-10.1); Chloride 105 mmol/L (98-107); Estimated GFR 67.44 (mL/min/1.73m2); Glucose 96 mg/dL (74-106); Potassium 3.9 mmol/L (3.5-5.1); Sodium 144 mmol/L (136-145); Total Protein 7.2 g/dL (6.4-8.2); Vitamin B12 346 pg/mL (193-986)
== END 2023-01-18 04:55 | disposition home or self-care (01) ==
LOC: LBO 04:54
PROVIDERS: Urology; PCP Family Medicine; Visit Provider Family Medicine
DX: N39.44 Nocturnal enuresis (principal); I10 Essential (primary) hypertension; K44.9 Diaphragmatic hernia without obstruction or gangrene; R63.4 Abnormal weight loss
CPT/HCPCS: 36415; 80048; 80053; 80061; 82607

== ENCOUNTER 2023-03-07 03:18 | Outpatient (CLI) | payer MEDICARE, SELFPAY ==
[2023-03-07 11:30] LABS: Abs Immature Grans 0.02 10^3/uL (0.0-0.06); Absolute Basophil Count 0.04 10^3/uL (0.0-0.2); Absolute Eosinophil Count 0.09 10^3/uL (0.0-0.7); Absolute Lymphocyte Count 1.49 10^3/uL (1.2-3.4); Absolute Monocyte Count 0.47 10^3/uL (0.1-0.8); Absolute Neutrophil Count 2.17 10^3/uL (1.2-6.7); Basophils % 0.9; Eosinophils % 2.1; HCT 39.6 % (40.0-50.0); HGB 13.1 g/dL (13.5-17.5); Immature Grans % 0.5; Lymphocytes % 34.8; MCH 39.2 pg (27.0-33.0); MCHC 33.1 % (32.0-36.0); MCV 119 fL (80-95); MPV 10.3 fL (8.0-11.0); Neutrophils % 50.7; Platelet Count 477 10^3/uL (130-400); RBC 3.34 10^6/uL (4.36-5.78); RDW 14.1 % (11.8-14.1); WBC 4.28 10^3/uL (4.4-10.8)
[2023-03-07 11:47] LABS: ALT 17 U/L (16-63); AST 18 U/L (15-37); Albumin 3.6 g/dL (3.4-5.0); Alkaline Phosphatase 81 U/L (46-116); Anion Gap 7.5 mmol/L (3-11); BUN 27 mg/dL (7-18); Bilirubin, Total 0.6 mg/dL (0.2-1.0); CO2 30.5 mmol/L (21.0-32.0); CREATININE 1.2 mg/dL (0.70-1.30); Calcium 9.5 mg/dL (8.5-10.1); Chloride 107 mmol/L (98-107); Estimated GFR 60.75 (mL/min/1.73m2); Glucose 121 mg/dL (74-106); Potassium 3.8 mmol/L (3.5-5.1); Sodium 145 mmol/L (136-145); Total Protein 7.2 g/dL (6.4-8.2)
[2023-03-07 11:58] LABS: Macrocytosis 1+
== END 2023-03-07 03:19 | disposition home or self-care (01) ==
LOC: LBO 03:18
PROVIDERS: PCP Family Medicine; Visit Provider Internal Medicine Hematology & Oncology
DX: D47.3 Essential (hemorrhagic) thrombocythemia (principal)
CPT/HCPCS: 36415; 80053; 85025

== ENCOUNTER 2023-03-10 04:44 | Outpatient (CLI) | payer MEDICARE, SELFPAY ==
[2023-03-10 11:56] LABS: Bilirubin Negative (Negative); Blood Negative (Negative); Clarity Clear (Clear); Glucose Negative (Negative); Ketones Negative (Negative); Leukocyte Esterase Negative (Negative); Nitrite Negative (Negative); Specific Gravity 1.025 (1.005-1.025); Urobilinogen 0.2 mg/dL (Up to 0.2); pH 5.5 (5-8)
[2023-03-10 12:18] LABS: Anion Gap 3.2 mmol/L (3-11); BUN 25 mg/dL (7-18); CO2 32.8 mmol/L (21.0-32.0); CREATININE 1.2 mg/dL (0.70-1.30); Calcium 9.2 mg/dL (8.5-10.1); Chloride 108 mmol/L (98-107); Estimated GFR 60.75 (mL/min/1.73m2); Glucose 71 mg/dL (74-106); Potassium 4.1 mmol/L (3.5-5.1); Sodium 144 mmol/L (136-145)
== END 2023-03-10 04:45 | disposition home or self-care (01) ==
PROVIDERS: PCP Family Medicine; Visit Provider Urology
DX: C67.9 Malignant neoplasm of bladder, unspecified (principal); N39.44 Nocturnal enuresis; N39.0 Urinary tract infection, site not specified; I10 Essential (primary) hypertension
CPT/HCPCS: 36415; 80048; 81003

== ENCOUNTER → 2023-06-03 12:49 | Outpatient (BNVA) | payer MEDICARE, SELFPAY | PROVIDERS: PCP Family Medicine; Visit Provider Urology | DX: D49.4 Neoplasm of unspecified behavior of bladder (principal) | CPT/HCPCS: 52000; 81003 ==

== ENCOUNTER 2023-07-05 20:46 | Emergency (ER) | payer MEDICARE, SELFPAY ==
[2023-07-05] VITALS (18 sets, daily range): BP systolic 129–142; BP diastolic 69–97; PULSE 69–91; RESP 16; TEMP 36.5; O2SAT 56–94
--- NOTE | 2023-07-05 20:45 | DI.CT_ITS ---
Exam(s) CT CHEST PE ABD PELVIS W EXAM: CT CHEST PE ABD PELVIS W CLINICAL HISTORY: Hematemesis. TECHNIQUE: Imaging Protocol: Axial CT angiography was performed with multi-slice acquisition and mu lti-planar and/or 3D reconstructions. CONTRAST MATERIAL: Intravenous: Omnipaque 350 Contrast volume:100 ml COMPARISON: CT CHEST WITH CONTRAST from 04/21/2012 CT CHEST - LUNG CANCER SCREENING from 12/12/[address] ABDOMEN PELVIS WO/W from 06/30/2019 FINDINGS: CHEST: Pulmonary Arteries: Evaluation of small branch vessels in the upper lobes limited due to respiratory motion. No evidence of filling defects to suggest pulmonary emboli. Tracheobronchial tree: No bronchiectasis or mucus plugging. Mediastinum and Shanta: No dominant adenopathy or fluid collection. Moderate size hiatal hernia. Pulmonary parenchyma: Evaluation mildly limited by motion. No consolidation or dominant measurable m ass. 4 millimeter nodule left lower lobe. Stable from 2016. Pleura: No effusion. No pneumothorax. Heart: The heart is mildlydilated. Coronary artery calcifications are seen. Aorta: Ectatic. Mild atherosclerotic changes. No dissection. Bones: Unremarkable for age. Tubes, Catheters, and Lines: None. Soft tissues: Unremarkable. ABDOMEN and PELVIS: Liver: Normal size. Normal density. No suspicious measurable mass. Portal, Superior Mesenteric, and Splenic Veins: Unremarkable. Gallbladder and Biliary Tract: No radiodense calculus. No biliary dilatation. Pancreas: Normal density, no abnormal calcifications or inflammatory process. Spleen: There are a few small peripheral areas low attenuation which are wedge-shaped which could ind icate infarct. More rounded area is seen posterolaterally which could represent a cyst. Not present previously. Adrenals: No masses seen. Kidneys: Normal size, contour and axis. Small nonobstructive right renal calculus. No obstructive ur opathy. No masses seen. Vasculature: Abdominal aorta non-dilated. Bowel: No obstruction . Appendix is unremarkable. Large quantity of stool distending rectum, consist ent with impaction. Mild to moderate stool elsewhere. Peritoneal Cavity: No ascites, collection or mesenteric inflammatory response. Lymph Nodes: Within normal limits. Soft Tissues: Unremarkable. Bladder: Anterior diverticulum. No mild diffuse wall thickening. Reproductive Organs: Prostate markedly enlarged. Small left hydrocele and varicocele. Bones: Advanced degenerative disc changes. Mild scoliosis. Old right transverse process fractures. IMPRESSION: 1. No evidence of pulmonary embolism or other acute abnormality in the chest. 2. Large quantity of stool distending the rectum this and impaction.. 3. Markedly enlarged prostate. Bladder diverticulum. 4. Several small wedge-shaped defect is seen in the periphery of the spleen which could represent inf arcts. RADIATION DOSE DELIVERED: 1,248.94mGy.cm Total DLP DATA REPOSITORY: All CT scans at this facility are submitted to the National Radiology Data Registry (NRDR) Dose Index Registry (DIR) with the [employer] (ACR). RADIATION OPTIMIZATION: All CT scans at this facility use at least one of these dose optimization te chniques: automated exposure control; mA and/or kV adjustment per patient size (includes targeted exa ms where dose is matched to clinical indication); or iterative reconstruction.
--- NOTE | 2023-07-05 21:00 | W.ED.GENAD ---
Discharge Plan Disposition Patient Disposition: Home Discharge Details Clinical Impression: Hematemesis Primary Care Provider: Iris Mejia ED Provider: Satnam Maldonado Home Meds and New Rx's Prescriptions: Continued aspirin [Adult Aspirin Regimen] 81 mg tablet,delayed release (DR/EC) 81 mg PO .EVERY OTHER DAY escitalopram oxalate [Lexapro] 10 mg tablet 10 mg PO DAILY Qty: 90 12RF atorvastatin 20 mg tablet 20 mg PO QPM Qty: 90 4RF quetiapine [Seroquel] 25 mg tablet 25 mg PO QHS Qty: 90 4RF pantoprazole 40 mg tablet,delayed release (DR/EC) See Rx Instructions .ROUTE .COMPLEX Qty: 60 12RF Dose Instruction: TAKE ONE TABLET BY MOUTH TWICE A DAY Rx Instructions: TAKE ONE TABLET BY MOUTH TWICE A DAY latanoprost 0.005 % drops 1 drp ophthalmic (eye) HS Patient Comments: INSTILL 1 DROP INTO BOTH EYES AT BEDTIME hydroxyurea [Hydrea] 500 mg capsule See Rx Instructions PO DAILY Rx Instructions: 2 tabs 5days/wk; 3tabs 2 days/week orally daily; Discharge Instructions Additional Instructions: You are seen in the emergency department following your episode of vomiting. Your CAT scan showed no sign of any active bleeding in your stomach. As we discussed there were some incidental findings. There was a pulmonary nodule for which radiology recommended a repeat CAT scan in 12 months. Your abdomen there was signs of some abnormalities with your spleen. Your EKG showed that you are heart is in a normal rhythm. You were offered hospitalization but declined. Your CAT scan showed some thickening in your colon for which radiology recommended a repeat CT scan versus a colonoscopy. Please return to the emergency department if you develop any vomiting with blood if you pass out or if you develop any chest pain. Discharge Data Discharge Date/Time-TO BE ENTERED AT DEPARTURE: 07/06/23 00:10 HPI General Date/Time Provider Initiated Documentation: 07/05/23 20:58. HPI Narrative: MDM This is a chronically ill normothermic and not tachycardic 82 yo w/history of gastritis and essential thrombocythemia on 81 mg ASA now with hematemsis for which he will undergo CTA chest and CT abd/pelvis. Given history of essential thrombocythemia on hydroxyurea will assess for thromboyctopenia. Given his history of hital hernia will assess for active blush with CT chest/abd/pelvis. PE is also on the differential in the event that his hematemesis was actually hemoptysis. Will send type and screen, place on monitor and observe for recurrent bleeding. No an alcoholic to suggest increase risk for variceal bleed. 10:11 PM CBC lacks leukocytosis anemia but does show thrombocytosis. Compared to prior dated earlier this year thrombocytosis has worsened. Negative ethanol level. Comprehensive metabolic panel with mild hyperglycemia but no anion gap and normal bicarbonate??not consistent with DKA. 11:[address] chest showing no PE but demonstrated moderate hiatal hernia with pulmonary nodule for which radiology recommended follow-up CT scan. In the abdomen, patient was found to have no evidence of active GI hemorrhage. Patient did have wedge-shaped foci of under enhancement of the spleen concerning for acute or subacute acute splenic infarct. This could be a complication of his essential thrombocythemia but not likely the cause of his hematemesis. There is a nonobstructing renal stone on the right. There is some wall thickening which may be due to possibility of colitis or neoplasm. Radiology recommended follow-up colonoscopy versus EGD. I was not concerned for colitis based on his soft, non-tender abdomen with no diarrhea and no fever so I did not feel that he required antibiotics or hospitalization. 07/06 Late charting due to patient care. I reassessed the patient. He had not had any episodes of hematemesis nor hemoptysis in the emergency department. He had received ondansetron. He transiently had episodes of hypoxia with reported desaturations down to 88% on room air for which she was placed on several liters of nasal cannula oxygen by nursing. I took him off the oxygen and when he was sitting upright his oxygen saturations were maintained between 90 to 94%. He did not feel short of breath. I advised him that I could hospitalize him as I anticipated that he would fail and ambulatory trial if you were to walk. He was adamant about wanting to go home. He reported that he would follow-up with his hematology team. His felt comfortable with this plan. I advised him to return to the ED for any shortness of breath or recurrent hematemesis or any other concerns. He understood his return indications and was discharged with empiric trial of expectant outpatient management. Chronic conditions affecting the care of the patient: Bladder neoplasm essential thrombocytopenia History obtained from an outside historian: Patient's External record review: [facility] [place] [facility] EMR Diagnostic interpretations performed by me: Per my independent interpretation EKG shows: Narrow complex normal sinus rhythm at a rate of 70. Intervals within normal limits. No ST segment abnormalities. T wave flattening in aVL. Compared to prior dated last year T wave flattening in aVL is persistent. No acute injury pattern. ]Medications: Ondansetron Social determinants of health affecting disposition: N/A Management discussed with: N/A Treatment/interventions considered: Hospitalization but deferred based on patient preference Response to therapies provided: No hematemesis in the emergency department HPI This is an 82-year-old male with history of essential thrombocytopenia and gastritis on 81 mg of aspirin arrived to the emergency department via private vehicle with his in the setting of hematemesis. Patient reports that he vomited twice today with episodes of blood. His has pictures of clots in his vomit. He last vomited approximately 30 minutes ago. He denies any chest and abdominal pain. Be on 81 mg of aspirin he is not anticoagulated. He has a history of hiatal hernia and he is status post remote Palma fundoplication. He denies fevers or shortness of breath. He takes hydroxyurea in the setting of his essential thrombocytopenia. He denies routine tobacco, ethanol, and illicits. Exam General: Chronically ill-appearing in no acute distress speaking in complete sentences. Head: Normocephalic, atraumatic. Eye: Extraocular eye movements intact. No conjunctival injection. No scleral icterus. Ear, nose, mouth, throat: Grossly normal inspection. Normal voice, handling secretions normally. Neck: Trachea midline. Cardiovascular: Well-perfused distal extremities. Regular rate and rhythm Respiratory: Nonlabored respiration. Clear lungs bilaterally Gastrointestinal: Nondistended abdomen. Soft nontender. No crepitance. Musculoskeletal: No edema. Moving all 4 extremities spontaneously. Skin: Normal for age and race, grossly normal temperature and turgor. No acute rash. Neurologic: Alert and appropriate, no apparent acute deficits. Psychiatric: Mood and manner are appropriate. Grooming and personal hygiene are appropriate. Related Data Home Medications Medication Instructions Recorded Confirmed latanoprost 0.005 % eye drops 1 drp ophthalmic (eye) HS 02/12/20 07/05/23 aspirin 81 mg tablet,delayed 81 mg PO .EVERY OTHER DAY 07/08/20 07/05/23 release (Adult Aspirin Regimen) quetiapine 25 mg tablet (Seroquel) 25 mg PO QHS #90 tabs 04/01/22 07/05/23 pantoprazole 40 mg tablet,delayed See Rx Instructions .Route 09/06/22 07/05/23 release .COMPLEX #60 tabs atorvastatin 20 mg tablet 20 mg PO QPM #90 tabs 01/11/23 07/05/23 escitalopram oxalate 10 mg tablet 10 mg PO DAILY #90 tab-caps 01/11/23 07/05/23 (Lexapro) hydroxyurea 500 mg capsule (Hydrea) See Rx Instructions PO DAILY 07/05/23 07/05/23 Previous Rx's Medication Instructions Recorded quetiapine 25 mg tablet (Seroquel) 25 mg PO QHS #90 tabs 04/01/22 pantoprazole 40 mg tablet,delayed See Rx Instructions .Route 09/06/22 release .COMPLEX #60 tabs atorvastatin 20 mg tablet 20 mg PO QPM #90 tabs 01/11/23 escitalopram oxalate 10 mg tablet 10 mg PO DAILY #90 tab-caps 01/11/23 (Lexapro) Allergies Allergy/AdvReac Type Severity Reaction Status Date / Time cyclobenzaprine HCl AdvReac CONFUSION Verified 07/05/23 21:05 [From Flexeril] General Stated Complaint: Nausea/Vomit/Diar DAWN: 3 Course Vital Signs Vital signs: Vital Signs Temperature 36.5 C 07/05/23 20:48 Pulse 91 H 07/05/23 20:48 Blood Pressure 142/97 H 07/05/23 20:48 Pulse Oximetry 93 07/05/23 20:48 Temperature 36.5 C 07/05/23 20:48 Temperature Source Skin 07/05/23 20:48 Pulse 91 H 07/05/23 20:48 Respiratory Effort Normal 07/05/23 20:52 Blood Pressure 142/97 H 07/05/23 20:48 Blood Pressure Position Sitting 07/05/23 20:48 Pulse Oximetry 93 07/05/23 20:48 Oxygen Delivery Method Room Air 07/05/23 20:48 Oxygen Flow Rate 0 07/05/23 20:48 Medical Decision Making Quality:SDOH Health Related Social Needs: No Data to Display PFSH All Active Problems (Updated 07/05/23 @ 23:57 by Satnam Maldonado MD) Hematemesis (Acute) Change in voice (Acute) Conductive hearing loss, unilateral, left ear with restricted hearing on the contralateral side (Acute) Mixed hearing loss (Acute) Sensorineural hearing loss (SNHL) (Acute) Ear lesion (Acute) Cerumen impaction (Acute) Mitral regurgitation (Chronic) Actinic keratosis (Acute) Chronic obstructive lung disease (Chronic) FEV1 70% 02/20 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 saw Miranda. Resolved with time. Thought to be secondary to brain hypoxia. Disorder of adrenal gland Diverticulosis of colon without diverticulitis colonoscopy 06/15. Dr Stanford Gonzalez GI Duodenitis Erosive esophagitis Erosive gastroesophageal reflux disease (06/09/16) SEVERE-DR. ANTOINE 06/09/16 Esophageal ulcer without bleeding Esophagitis Essential thrombocytopenia pt. states this is incorrect that he has thrombocythemia 07/04/19 Takes hydroxyurea 1000 mg daily Full incontinence of feces (08/15/17) pt. states this has resolved Gastritis Glaucoma Gross hematuria Hemoptysis, unspecified Hemorrhoids S/P SURGERY Herpes zoster Hiatal hernia Hip pain Hip pain History of tobacco use quit in 2005 History of tobacco use Hx of Raynaud's syndrome Per. pt. stated he was dx by Dr. 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 Coyne; neg 09/28/13 Dr. Antoine EGD - IV Sedation (06/09/16) 08/16/12 DR. ANTOINE 05/05/12 Dr. antoine; esophagitis 09/28/13 Dr. antoine H/O esophagogastroduodenoscopy 08/16/2012-Dr. Antoine; 05/05/12-Dr. Antoine; esophagitis 09/28/2013-Dr. Antoine H/O hemorrhoidectomy Hemorrhoidectomy History of esophagogastroduodenoscopy History of hemorrhoidectomy History of Palma fundoplication Dr. Schneider @ [facility] [place] [facility] 2016 Paraesophageal hernia repair (08/17/16) [facility] [place] Repair of inguinal hernia 2006 Left 2004 Right S/P endoscopy 02/07/13 upper endoscopy S/P inguinal hernia repair left-2005; right-2004 Status post inguinal hernia repair STEMI (~2005) Posterior lateral Per pt. was discharged from their care after cardiac rehab, and f/u with Dr. Mejia Spouse reports 2 stents reported Family History Mother No problems noted. Sister Heart disease PACEMAKER Social History Smoking/Tobacco Use Status: Former Tobacco Use Quit Date: 02/07/05 Second Hand Exposure: No Smoking risk assessment performed?: Yes Alcohol Intake: current Alcohol Intake frequency: holidays/special occasions only Alcohol type: hard liquor Drug use: Never Substance use type: does not use Details: alcohol: unknown Caregiver/Support person: No Household members: spouse Housing: house Communication Needs: Hard of Hearing and Corrective Lenses Do you need help understanding health information?: Always Pets and animals: Yes Pets and animals: cat(s) Sexually active: No Do you think of yourself as: straight/heterosexual Current gender identity: male What is your relationship status?: How often do you talk on the phone with friends or family?: once per week How often do you get together with friends or relatives?: once per week How often do you attend jainism or cheondoism services?: decline to answer Do you belong to any clubs or organized social groups?: no Panel score (0-1 are the most socially isolated patients): 1 What type of physical activity do you participate in: walking Duration: 15-30 minutes/day Frequency: 1-2 times per week Mayuri/Christian: Adventist Agree to transfusion: No Seatbelt use: always Drive intox or ride w/intox feeder driver: No Do you feel safe at home: Yes Additional Social history: answered questions for pt.
[2023-07-05 21:19] LABS: Abs Immature Grans 0.02 10^3/uL (0.0-0.06); Absolute Basophil Count 0.04 10^3/uL (0.0-0.2); Absolute Eosinophil Count 0.06 10^3/uL (0.0-0.7); Absolute Monocyte Count 1.13 10^3/uL (0.1-0.8); Absolute Neutrophil Count 5.16 10^3/uL (1.2-6.7); Basophils % 0.6 %; Eosinophils % 0.8 %; HCT 41.4 % (40.0-50.0); HGB 13.5 g/dL (13.5-17.5); Immature Grans % 0.3 %; Lymphocytes % 11.1 %; MCH 35.9 pg (27.0-33.0); MCHC 32.6 % (32.0-36.0); MCV 110 fL (80-95); MPV 10.4 fL (8.0-11.0); Monocytes % 15.7 %; Neutrophils % 71.5 %; Platelet Count 594 10^3/uL (130-400); RBC 3.76 10^6/uL (4.36-5.78); RDW 13.6 % (11.8-14.1); RDW-SD 55.2 fL; WBC 7.21 10^3/uL (4.4-10.8)
[2023-07-05] MEDS: Ondansetron 4 MG/2 ML VIAL IVP (21:19)
[2023-07-05] MEDS: Omnipaque 350 MG/ML 100 ML BTL IJ (21:28)
[2023-07-05] MEDS: Normal Saline Flush 10 ML SYR IVP (21:29)
[2023-07-05] MEDS: Normal Saline - Diluent 50 ML VIAL IJ (21:30)
[2023-07-05 21:36] LABS: ALT 27 U/L (16-63); AST 23 U/L (15-37); Albumin 3.8 g/dL (3.4-5.0); Alkaline Phosphatase 88 U/L (46-116); Anion Gap 6.2 mmol/L (3-11); BUN 23 mg/dL (7-18); Bilirubin, Total 0.5 mg/dL (0.2-1.0); CO2 30.8 mmol/L (21.0-32.0); CREATININE 1.3 mg/dL (0.70-1.30); Calcium 8.9 mg/dL (8.5-10.1); Chloride 107 mmol/L (98-107); Estimated GFR 55.19 (mL/min/1.73m2); Glucose 114 mg/dL (74-106); Potassium 4.2 mmol/L (3.5-5.1); Sodium 144 mmol/L (136-145); Total Protein 7.2 g/dL (6.4-8.2)
[2023-07-05 21:37] LABS: ETHANOL BLOOD < 3.0 mg/dL (<10)
[2023-07-05 21:42] LABS: Diff Comment RBC Morph Reviewed; Macrocytosis 2+
--- NOTE | 2023-07-05 23:32 | DI.VRAD_ITS ---
Addendum created by Noam Baca MD on 07/05/2023 11:32:09 PM EDT: Addendum: THIS REPORT CONTAINS FINDINGS THAT MAY BE CRITICAL TO PATIENT CARE. The findings were verbally communicated via telephone conference with NOAM CHATMAN at 11:31 PM EDT on 07/05/2023. The findings were acknowledged and understood. Initial report created on 07/05/2023 11:29:01 PM EDT: PROCEDURE INFORMATION: Exam: CTA Chest With Contrast Exam date and time: 07/05/2023 9:32 PM Age: 82 years old Clinical indication: Vomiting; Other: Hematemesis TECHNIQUE: Imaging protocol: Computed tomographic angiography of the chest with contrast. Exam focused on the arteries. 3D rendering (Not supervised by radiologist): MIP and/or 3D reconstructed images were created by the technologist. Radiation optimization: All CT scans at this facility use at least one of these dose optimization techniques: automated exposure control; mA and/or kV adjustment per patient size (includes targeted exams where dose is matched to clinical indication); or iterative reconstruction. Contrast material: OMNIPAQUE 350; Contrast volume: 100 ml; Contrast route: INTRAVENOUS (IV); COMPARISON: CR XR CHEST 2V PA LATERAL 06/02/2022 8:23 PM FINDINGS: Pulmonary arteries: No large central pulmonary emboli were identified. Assessment of the small peripheral subsegmental branches was nondiagnostic in the upper lung green due to gross respiratory motion. Aorta: The aorta demonstrates moderate ectasia/tortuosity and mild calcific atherosclerosis. No aortic aneurysm or dissection. No mediastinal hematoma. Thyroid: The visualized thyroid gland demonstrates no gross abnormality. Lungs: Mild bilateral bronchial wall thickening consistent with bronchitis or bronchial edema. No bronchiectasis. No bronchial occlusions. No gross pulmonary infiltrates or edema pattern. Mild pleuroparenchymal scarring in the pulmonary apices bilaterally. There is a 4.5 mm pulmonary nodule in the posterior left lower lobe series 7, image 391. For patients at low risk (minimal or absent history of smoking and of other known risk factors), no routine follow-up is indicated. For patients at high risk (history of smoking or of other known risk factors), consider optional CT at 12 months. (Mason et al., Fleischner Society, 2017). Small fatty Bochdalek's hernia in the posterior left basilar distribution with no evidence of associated bowel herniation or solid organ herniation. Pleural spaces: No pleural effusion. No pneumothorax. Heart: Heart size normal. No pericardial effusion. Coronary arteries: Mild-moderate coronary artery calcification. Lymph nodes: No supraclavicular or axillary adenopathy. No mediastinal or hilar adenopathy. Diaphragm: Moderate-sized hiatal hernia. Small hyperdensities near the GE junction suggest probable postoperative changes of prior repair or fundoplication, correlate with operative history. Stomach: Visualized upper abdominal structures are unremarkable. Bones/joints: No acute osseous abnormalities are identified. Osteopenia. Old healed lower right posterior rib fractures. Old healed lateral right rib fracture. Old healed lower left anterolateral rib fractures. Mild thoracic spondylosis. Soft tissues: The soft tissues of the chest wall demonstrate no acute abnormality. IMPRESSION: 1. No large central pulmonary emboli. Assessment of the small peripheral branch vessels was nondiagnostic in the upper lung green due to gross respiratory motion. 2. Mild bilateral bronchial wall thickening consistent with bronchitis or bronchial edema. 3. Moderate-sized hiatal hernia. Small adjacent hyperdensities near the GE junction suggest chronic postoperative change, possibly prior hernia repair or fundoplication, correlate with operative history. 4. Mild-moderate coronary artery calcification. 5. There is a 4.5 mm pulmonary nodule in the left lower lobe. Please see recommendations above. 6. Additional nonemergent findings detailed above. PROCEDURE INFORMATION: Exam: CT Abdomen And Pelvis With Contrast Exam date and time: 07/05/2023 9:32 PM Age: 82 years old Clinical indication: Vomiting; Other: Hematemesis TECHNIQUE: Imaging protocol: Computed tomography of the abdomen and pelvis with contrast. Radiation optimization: All CT scans at this facility use at least one of these dose optimization techniques: automated exposure control; mA and/or kV adjustment per patient size (includes targeted exams where dose is matched to clinical indication); or iterative reconstruction. Contrast material: OMNIPAQUE 350; Contrast volume: 100 ml; Contrast route: INTRAVENOUS (IV); COMPARISON: CT ABDOMEN PELVIS WO/W 06/30/2019 7:05 PM FINDINGS: Liver: Normal contour. No mass lesions. No intrahepatic biliary ductal dilatation. Gallbladder and bile ducts: Normal. No calcified stones. No ductal dilation. Pancreas: Normal. No inflammatory changes or ductal dilation. Spleen: Multiple small peripheral wedge-shaped foci of under enhancement in the spleen without associated parenchymal volume loss, concerning for small acute or subacute splenic infarcts. Consider cardioembolic source. Adrenal glands: Normal. No adrenal mass. Kidneys and ureters: Small bilateral renal cortical cysts are present which do not require further assessment. There is a 4 mm nonobstructive right renal stone. No hydronephrosis. Cortical cleft in the posterior interpolar right renal cortex, most likely anatomic variation although a small chronic cortical infarct could produce this appearance. Stomach and bowel: The small bowel is nondilated with no gross abnormality. Proximal colon is largely contracted, probably contributing to the thick-walled appearance although cannot exclude changes of colitis or neoplastic thickening. Recommend follow-up colonoscopy, versus follow-up CT to assess normalization. Large volume colonic stool in the rectum measuring 8.5 cm diameter, suggesting rectal fecal impaction. Mild rectosigmoid wall thickening could represent an element of stercoral colitis. No perforation or abscess. Appendix: The appendix is normal in caliber and demonstrates no evidence of appendicitis. Intraperitoneal space: No peritoneal free fluid or air. Vasculature: No acute process. No abdominal aortic aneurysm. Moderate calcific atherosclerosis. Lymph nodes: No adenopathy. Urinary bladder: There is a 2.8 cm partially collapsed bladder diverticulum arising from the anterior wall. Slight bladder wall thickening and adjacent stranding, correlate with UA for evidence of cystitis. Reproductive: Moderate-severe prostate enlargement, nonspecific, correlate with PSA. Small simple hydrocele in the left hemiscrotum. Small left varicocele. Bones/joints: No acute osseous abnormalities. Osteopenia. Old healed fractures of the right upper lumbar transverse processes. Multilevel advanced lumbar disc degenerative change with mild rightward convexity lumbar scoliosis. Soft tissues: Unremarkable. IMPRESSION: 1. No evidence of bowel obstruction or perforation. No active GI hemorrhage is evident. 2. Wedge-shaped foci of under enhancement in the spleen without parenchymal volume loss, concerning for acute or subacute splenic infarcts. This is concerning for embolic disease. 3. There is a 4 mm nonobstructive right renal stone. No ureteral stones or hydronephrosis. 4. Thick-walled cecum/ascending colon may be due to contracted state although colitis or neoplastic thickening not excluded. Recommend follow-up colonoscopy versus CT follow-up to assess normalization. 5. Rectal fecal impaction with mild rectosigmoid wall thickening, possibly stercoral colitis. No perforation or abscess. 6. Moderate-severe prostate enlargement, correlate with PSA. 7. Mild bladder wall thickening and adjacent stranding could relate to reactive changes from chronic partial outlet obstruction or possibly cystitis, correlate with UA. Small bladder diverticulum noted. 8. Additional nonemergent findings detailed above. 9. These findings initiated a results reporting process. An addendum will be issued at the time of clinician notification. Dictated and Authenticated by: Noam Baca MD. Ordering:LUBNA Hay MD
--- NOTE | 2023-07-05 23:45 | RT.EKG_ITS ---
APPROVED REPORT Exam: Resting ECG Reason for Exam: ? A-fib Patient Location: E HR:70 bpm ECG Measurements Heart Rate 70 AXIS LA 176 P 68 QRSd 87 QRS -2 QT 381 T 47 QTc 413 Conclusion Sinus rhythm...normal P axis, V-rate 60- 99 Narrow complex normal sinus rhythm at a rate of 70. Intervals within normal limits. No ST segment a bnormalities. T wave flattening in aVL. Compared to prior dated last year T wave flattening in aVL is persistent. No acute injury pattern.
[2023-07-06 00:09] VITALS: BP 139/84; PULSE 73; RESP 16; TEMP 36.6; O2SAT 94
== END 2023-07-06 00:10 | disposition home or self-care (01) ==
PROVIDERS: Emergency Provider Emergency Medicine; PCP Family Medicine
DX: K92.0 Hematemesis (principal); K44.9 Diaphragmatic hernia without obstruction or gangrene; R91.1 Solitary pulmonary nodule; N20.0 Calculus of kidney; R93.5 Abnormal findings on diagnostic imaging of other abdominal regions, including retroperitoneum; D47.3 Essential (hemorrhagic) thrombocythemia; Z79.82 Long term (current) use of aspirin; C67.9 Malignant neoplasm of bladder, unspecified; Z79.899 Other long term (current) drug therapy
CPT/HCPCS: 36415; 71275; 74177; 80053; 86850; 86900; 86901; 93005; 96374; 99285; 80320; 85025; 93010; J2405; J3490

== ENCOUNTER 2023-07-25 05:58 | Outpatient (CLI) | payer MEDICARE, SELFPAY ==
[2023-07-25 13:19] LABS: Abs Immature Grans 0.03 10^3/uL (0.0-0.06); Absolute Basophil Count 0.07 10^3/uL (0.0-0.2); Absolute Lymphocyte Count 1.03 10^3/uL (1.2-3.4); Absolute Monocyte Count 0.95 10^3/uL (0.1-0.8); Absolute Neutrophil Count 4.52 10^3/uL (1.2-6.7); Eosinophils % 1.5 %; HCT 42.7 % (40.0-50.0); HGB 13.5 g/dL (13.5-17.5); Immature Grans % 0.4 %; Lymphocytes % 15.4 %; MCH 34.1 pg (27.0-33.0); MCHC 31.6 % (32.0-36.0); MCV 108 fL (80-95); MPV 10.3 fL (8.0-11.0); Monocytes % 14.2 %; Neutrophils % 67.5 %; RBC 3.96 10^6/uL (4.36-5.78); RDW 14.1 % (11.8-14.1); RDW-SD 55.6 fL
[2023-07-25 13:33] LABS: Diff Comment Diff Reviewed; Macrocytosis 2+
[2023-07-25 13:35] LABS: Platelet Count 920 10^3/uL (130-400)
[2023-07-25 13:42] LABS: Hemoglobin A1C 5.9 % (<5.7)
[2023-07-25 15:17] LABS: ALT 21 U/L (16-63); AST 17 U/L (15-37); Albumin 3.6 g/dL (3.4-5.0); Alkaline Phosphatase 87 U/L (46-116); Anion Gap 5.7 mmol/L (3-11); BUN 22 mg/dL (7-18); Bilirubin, Total 0.6 mg/dL (0.2-1.0); CO2 31.3 mmol/L (21.0-32.0); CREATININE 1.2 mg/dL (0.70-1.30); Calcium 9.1 mg/dL (8.5-10.1); Chloride 105 mmol/L (98-107); Estimated GFR 60.75 (mL/min/1.73m2); Glucose 94 mg/dL (74-106); Potassium 4.3 mmol/L (3.5-5.1); Sodium 142 mmol/L (136-145); Total Protein 7.1 g/dL (6.4-8.2); Vitamin B12 374 pg/mL (193-986)
== END 2023-07-25 05:59 | disposition home or self-care (01) ==
PROVIDERS: PCP Family Medicine; Visit Provider Nurse Practitioner Adult Health
DX: R26.89 Other abnormalities of gait and mobility (principal); I10 Essential (primary) hypertension; E11.9 Type 2 diabetes mellitus without complications; D47.3 Essential (hemorrhagic) thrombocythemia
CPT/HCPCS: 36415; 80053; 82607; 83036; 84443; 85025

== ENCOUNTER 2023-07-27 04:44 | Outpatient (CLI) | payer MEDICARE, SELFPAY ==
[2023-07-27 13:10] LABS: Abs Immature Grans 0.02 10^3/uL (0.0-0.06); Absolute Basophil Count 0.06 10^3/uL (0.0-0.2); Absolute Eosinophil Count 0.09 10^3/uL (0.0-0.7); Absolute Lymphocyte Count 0.96 10^3/uL (1.2-3.4); Absolute Monocyte Count 0.76 10^3/uL (0.1-0.8); Absolute Neutrophil Count 4.43 10^3/uL (1.2-6.7); Basophils % 0.9 %; Eosinophils % 1.4 %; HCT 41.7 % (40.0-50.0); HGB 13.2 g/dL (13.5-17.5); Immature Grans % 0.3 %; Lymphocytes % 15.2 %; MCH 33.9 pg (27.0-33.0); MCHC 31.7 % (32.0-36.0); MCV 107 fL (80-95); MPV 10.1 fL (8.0-11.0); Neutrophils % 70.2 %; RBC 3.89 10^6/uL (4.36-5.78); RDW 14.3 % (11.8-14.1); RDW-SD 56.3 fL; WBC 6.32 10^3/uL (4.4-10.8)
[2023-07-27 13:24] LABS: ALT 21 U/L (16-63); AST 18 U/L (15-37); Albumin 3.6 g/dL (3.4-5.0); Alkaline Phosphatase 86 U/L (46-116); Anion Gap 6.6 mmol/L (3-11); BUN 18 mg/dL (7-18); Bilirubin, Total 0.7 mg/dL (0.2-1.0); CO2 30.4 mmol/L (21.0-32.0); CREATININE 1.4 mg/dL (0.70-1.30); Calcium 9.1 mg/dL (8.5-10.1); Chloride 107 mmol/L (98-107); Estimated GFR 50.49 (mL/min/1.73m2); Glucose 100 mg/dL (74-106); Potassium 4.4 mmol/L (3.5-5.1); Sodium 144 mmol/L (136-145)
[2023-07-27 13:38] LABS: Anisocytosis 1+; Diff Comment RBC Morph Reviewed; Macrocytosis 1+
[2023-07-27 13:39] LABS: Platelet Count 654 10^3/uL (130-400)
== END 2023-07-27 04:45 | disposition home or self-care (01) ==
PROVIDERS: PCP Family Medicine; Visit Provider Nurse Practitioner Adult Health
DX: D47.3 Essential (hemorrhagic) thrombocythemia (principal)
CPT/HCPCS: 36415; 80053; 85025

== ENCOUNTER 2023-08-17 02:27 | Outpatient (CLI) | payer MEDICARE, SELFPAY ==
[2023-08-17 15:08] LABS: Abs Immature Grans 0.04 10^3/uL (0.0-0.06); Absolute Basophil Count 0.07 10^3/uL (0.0-0.2); Absolute Eosinophil Count 0.16 10^3/uL (0.0-0.7); Absolute Lymphocyte Count 1.17 10^3/uL (1.2-3.4); Absolute Monocyte Count 0.78 10^3/uL (0.1-0.8); Absolute Neutrophil Count 4.26 10^3/uL (1.2-6.7); Basophils % 1.1 %; Eosinophils % 2.5 %; HCT 41.3 % (40.0-50.0); HGB 13.2 g/dL (13.5-17.5); Immature Grans % 0.6 %; Lymphocytes % 18.1 %; MCH 32.8 pg (27.0-33.0); MCV 103 fL (80-95); MPV 10.8 fL (8.0-11.0); Neutrophils % 65.7 %; RBC 4.02 10^6/uL (4.36-5.78); RDW 14.6 % (11.8-14.1); RDW-SD 55.2 fL; WBC 6.48 10^3/uL (4.4-10.8)
[2023-08-17 15:23] LABS: ALT 21 U/L (16-63); AST 18 U/L (15-37); Albumin 3.5 g/dL (3.4-5.0); Alkaline Phosphatase 74 U/L (46-116); Anion Gap 4.4 mmol/L (3-11); BUN 23 mg/dL (7-18); Bilirubin, Total 0.62 mg/dL (0.2-1.0); CO2 30.6 mmol/L (21.0-32.0); CREATININE 1.2 mg/dL (0.70-1.30); Chloride 106 mmol/L (98-107); Estimated GFR 60.38 (mL/min/1.73m2); Glucose 121 mg/dL (74-106); Potassium 4.4 mmol/L (3.5-5.1); Sodium 141 mmol/L (136-145); Total Protein 6.7 g/dL (6.4-8.2)
[2023-08-17 15:34] LABS: Platelet Count 831 10^3/uL (130-400)
[2023-08-17 15:35] LABS: Diff Comment PLT Morph Reviewed; RBC Morphology Normal
== END 2023-08-17 02:28 | disposition home or self-care (01) ==
PROVIDERS: PCP Family Medicine; Visit Provider Nurse Practitioner Adult Health
DX: D47.3 Essential (hemorrhagic) thrombocythemia (principal)
CPT/HCPCS: 36415; 80053; 85025

== ENCOUNTER 2023-09-07 02:40 | Outpatient (CLI) | payer MEDICARE, SELFPAY ==
[2023-09-07 13:43] LABS: Abs Immature Grans 0.01 10^3/uL (0.0-0.06); Absolute Basophil Count 0.08 10^3/uL (0.0-0.2); Absolute Eosinophil Count 0.12 10^3/uL (0.0-0.7); Absolute Lymphocyte Count 0.99 10^3/uL (1.2-3.4); Absolute Monocyte Count 0.79 10^3/uL (0.1-0.8); Absolute Neutrophil Count 4.23 10^3/uL (1.2-6.7); Basophils % 1.3 %; Eosinophils % 1.9 %; HCT 39.6 % (40.0-50.0); HGB 12.9 g/dL (13.5-17.5); Immature Grans % 0.2 %; Lymphocytes % 15.9 %; MCHC 32.6 % (32.0-36.0); MCV 98 fL (80-95); MPV 10.8 fL (8.0-11.0); Monocytes % 12.7 %; RBC 4.03 10^6/uL (4.36-5.78); RDW 15.4 % (11.8-14.1); RDW-SD 55.1 fL; WBC 6.22 10^3/uL (4.4-10.8)
[2023-09-07 14:02] LABS: ALT 19 U/L (16-63); AST 17 U/L (15-37); Albumin 3.6 g/dL (3.4-5.0); Alkaline Phosphatase 70 U/L (46-116); BUN 24 mg/dL (7-18); Bilirubin, Total 0.62 mg/dL (0.2-1.0); CREATININE 1.5 mg/dL (0.70-1.30); Calcium 9.1 mg/dL (8.5-10.1); Chloride 105 mmol/L (98-107); Estimated GFR 46.19 (mL/min/1.73m2); Glucose 126 mg/dL (74-106); Potassium 4.3 mmol/L (3.5-5.1); Sodium 141 mmol/L (136-145); Total Protein 6.9 g/dL (6.4-8.2)
[2023-09-07 14:03] LABS: Diff Comment Agrees w/ Instrument; RBC Morphology Normal
[2023-09-07 14:04] LABS: Platelet Count 682 10^3/uL (130-400)
== END 2023-09-07 02:41 | disposition home or self-care (01) ==
PROVIDERS: PCP Family Medicine; Visit Provider Nurse Practitioner Adult Health
DX: D47.3 Essential (hemorrhagic) thrombocythemia (principal)
CPT/HCPCS: 36415; 80053; 85025

== ENCOUNTER 2023-11-02 02:31 | Outpatient (CLI) | payer MEDICARE, SELFPAY ==
[2023-11-02 13:54] LABS: Abs Immature Grans 0.03 10^3/uL (0.0-0.06); HCT 45.4 % (40.0-50.0); HGB 13.9 g/dL (13.5-17.5); MCH 29.1 pg (27.0-33.0); MCHC 30.6 % (32.0-36.0); MCV 95 fL (80-95); MPV 11.2 fL (8.0-11.0); RBC 4.77 10^6/uL (4.36-5.78); RDW 18.3 % (11.8-14.1); RDW-SD 62.9 fL; WBC 6.38 10^3/uL (4.4-10.8)
[2023-11-02 14:28] LABS: ALT 19 U/L (16-63); AST 20 U/L (15-37); Albumin 3.7 g/dL (3.4-5.0); Alkaline Phosphatase 72 U/L (46-116); Anion Gap 6.3 mmol/L (3-11); BUN 25 mg/dL (7-18); Bilirubin, Total 0.57 mg/dL (0.2-1.0); CO2 29.7 mmol/L (21.0-32.0); CREATININE 1.5 mg/dL (0.70-1.30); Calcium 9.4 mg/dL (8.5-10.1); Chloride 103 mmol/L (98-107); Estimated GFR 46.19 (mL/min/1.73m2); Glucose 80 mg/dL (74-106); Potassium 4.3 mmol/L (3.5-5.1); Sodium 139 mmol/L (136-145); Total Protein 7.5 g/dL (6.4-8.2)
[2023-11-02 15:17] LABS: Platelet Count 924 10^3/uL (130-400)
[2023-11-02 15:18] LABS: Absolute Eosinophil Count 0.13 10^3/uL (0.0-0.7); Absolute Lymphocyte Count 1.34 10^3/uL (1.2-3.4); Absolute Neutrophil Count 4.21 10^3/uL (1.2-6.7); Atypical Lymphocytes % 5 %; Diff Comment Manual Differential; RBC Morphology Normal
== END 2023-11-02 02:32 | disposition home or self-care (01) ==
PROVIDERS: PCP Family Medicine; Visit Provider Nurse Practitioner Adult Health
DX: D47.3 Essential (hemorrhagic) thrombocythemia (principal)
CPT/HCPCS: 36415; 80053; 85025

== ENCOUNTER 2023-11-30 03:19 | Outpatient (CLI) | payer MEDICARE, SELFPAY ==
[2023-11-30 12:12] LABS: Abs Immature Grans 0.02 10^3/uL (0.0-0.06); Absolute Basophil Count 0.05 10^3/uL (0.0-0.2); Absolute Eosinophil Count 0.14 10^3/uL (0.0-0.7); Absolute Lymphocyte Count 0.94 10^3/uL (1.2-3.4); Absolute Neutrophil Count 3.19 10^3/uL (1.2-6.7); Eosinophils % 2.9 %; HCT 39.4 % (40.0-50.0); HGB 12.4 g/dL (13.5-17.5); Immature Grans % 0.4 %; Lymphocytes % 19.4 %; MCH 29.2 pg (27.0-33.0); MCHC 31.5 % (32.0-36.0); MCV 93 fL (80-95); MPV 10.4 fL (8.0-11.0); Monocytes % 10.3 %; Platelet Count 571 10^3/uL (130-400); RBC 4.24 10^6/uL (4.36-5.78); RDW 19.9 % (11.8-14.1); RDW-SD 65.2 fL; WBC 4.84 10^3/uL (4.4-10.8)
[2023-11-30 12:30] LABS: ALT 25 U/L (16-63); AST 24 U/L (15-37); Albumin 3.5 g/dL (3.4-5.0); Alkaline Phosphatase 63 U/L (46-116); Anion Gap 6.9 mmol/L (3-11); BUN 30 mg/dL (7-18); Bilirubin, Total 0.72 mg/dL (0.2-1.0); CO2 29.1 mmol/L (21.0-32.0); CREATININE 1.5 mg/dL (0.70-1.30); Calcium 9.3 mg/dL (8.5-10.1); Chloride 108 mmol/L (98-107); Estimated GFR 46.19 (mL/min/1.73m2); Glucose 110 mg/dL (74-106); Potassium 4.6 mmol/L (3.5-5.1); Sodium 144 mmol/L (136-145); Total Protein 6.8 g/dL (6.4-8.2)
== END 2023-11-30 03:20 | disposition home or self-care (01) ==
PROVIDERS: PCP Family Medicine; Visit Provider Nurse Practitioner Adult Health
DX: D47.3 Essential (hemorrhagic) thrombocythemia (principal)
CPT/HCPCS: 36415; 80053; 85025

== ENCOUNTER 2023-12-26 03:01 | Outpatient (CLI) | payer MEDICARE, SELFPAY ==
[2023-12-26 12:32] LABS: Abs Immature Grans 0.03 10^3/uL (0.0-0.06); Absolute Basophil Count 0.07 10^3/uL (0.0-0.2); Absolute Lymphocyte Count 1.06 10^3/uL (1.2-3.4); Absolute Monocyte Count 1.13 10^3/uL (0.1-0.8); Absolute Neutrophil Count 5.75 10^3/uL (1.2-6.7); Basophils % 0.8 %; Eosinophils % 2.4 %; HCT 42.4 % (40.0-50.0); HGB 13.3 g/dL (13.5-17.5); Immature Grans % 0.4 %; Lymphocytes % 12.9 %; MCH 29.3 pg (27.0-33.0); MCHC 31.4 % (32.0-36.0); MCV 93 fL (80-95); MPV 10.7 fL (8.0-11.0); Monocytes % 13.7 %; Neutrophils % 69.8 %; Nucleated RBC 0.2 % (0.0-0.3); RBC 4.54 10^6/uL (4.36-5.78); RDW 20.5 % (11.8-14.1); RDW-SD 69.1 fL; WBC 8.24 10^3/uL (4.4-10.8)
[2023-12-26 13:13] LABS: ALT 21 U/L (16-63); AST 20 U/L (15-37); Albumin 3.8 g/dL (3.4-5.0); Alkaline Phosphatase 77 U/L (46-116); Anion Gap 7.6 mmol/L (3-11); BUN 24 mg/dL (7-18); Bilirubin, Total 0.62 mg/dL (0.2-1.0); CO2 30.4 mmol/L (21.0-32.0); CREATININE 1.3 mg/dL (0.70-1.30); Calcium 9.5 mg/dL (8.5-10.1); Chloride 107 mmol/L (98-107); Estimated GFR 54.85 (mL/min/1.73m2); Glucose 89 mg/dL (74-106); Potassium 4.6 mmol/L (3.5-5.1); Sodium 145 mmol/L (136-145); Total Protein 7.4 g/dL (6.4-8.2)
[2023-12-26 13:18] LABS: Anisocytosis 2+; Diff Comment Agrees w/ Instrument
[2023-12-26 13:19] LABS: Poikilocytes 2+
[2023-12-26 13:26] LABS: Platelet Count 970 10^3/uL (130-400)
== END 2023-12-26 03:02 | disposition home or self-care (01) ==
PROVIDERS: PCP Family Medicine; Visit Provider Nurse Practitioner Adult Health
DX: D47.3 Essential (hemorrhagic) thrombocythemia (principal)
CPT/HCPCS: 36415; 80053; 85025

== ENCOUNTER 2024-01-16 02:44 | Outpatient (CLI) | payer MEDICARE, SELFPAY ==
[2024-01-16 12:28] LABS: Abs Immature Grans 0.03 10^3/uL (0.0-0.06); Absolute Basophil Count 0.09 10^3/uL (0.0-0.2); Absolute Eosinophil Count 0.14 10^3/uL (0.0-0.7); Absolute Lymphocyte Count 1.01 10^3/uL (1.2-3.4); Absolute Monocyte Count 1.02 10^3/uL (0.1-0.8); Absolute Neutrophil Count 5.88 10^3/uL (1.2-6.7); Basophils % 1.1 %; Eosinophils % 1.7 %; HCT 40.2 % (40.0-50.0); HGB 12.6 g/dL (13.5-17.5); Immature Grans % 0.4 %; Lymphocytes % 12.4 %; MCH 29.3 pg (27.0-33.0); MCHC 31.3 % (32.0-36.0); MCV 94 fL (80-95); MPV 11.2 fL (8.0-11.0); Monocytes % 12.5 %; Neutrophils % 71.9 %; Nucleated RBC 0.4 % (0.0-0.3); RDW 21.1 % (11.8-14.1); RDW-SD 69.7 fL; WBC 8.17 10^3/uL (4.4-10.8)
[2024-01-16 13:09] LABS: Diff Comment RBC Morph Reviewed
[2024-01-16 13:10] LABS: Anisocytosis 2+; Poikilocytes 1+
[2024-01-16 13:11] LABS: Platelet Count 900 10^3/uL (130-400)
[2024-01-16 13:20] LABS: ALT 21 U/L (16-63); AST 21 U/L (15-37); Albumin 3.9 g/dL (3.4-5.0); Alkaline Phosphatase 76 U/L (46-116); BUN 29 mg/dL (7-18); Bilirubin, Total 0.54 mg/dL (0.2-1.0); CREATININE 1.5 mg/dL (0.70-1.30); Calcium 9.4 mg/dL (8.5-10.1); Chloride 107 mmol/L (98-107); Estimated GFR 46.19 (mL/min/1.73m2); Glucose 107 mg/dL (74-106); Potassium 4.6 mmol/L (3.5-5.1); Sodium 144 mmol/L (136-145); Total Protein 7.3 g/dL (6.4-8.2)
== END 2024-01-16 02:45 | disposition home or self-care (01) ==
PROVIDERS: PCP Family Medicine; Visit Provider Nurse Practitioner Adult Health
DX: D47.3 Essential (hemorrhagic) thrombocythemia (principal)
CPT/HCPCS: 36415; 80053; 85025

== ENCOUNTER 2024-02-06 03:15 | Outpatient (CLI) | payer MEDICARE, SELFPAY ==
[2024-02-06 12:52] LABS: Abs Immature Grans 0.03 10^3/uL (0.0-0.06); Absolute Basophil Count 0.02 10^3/uL (0.0-0.2); Absolute Lymphocyte Count 0.45 10^3/uL (1.2-3.4); Absolute Monocyte Count 1.15 10^3/uL (0.1-0.8); Basophils % 0.3 %; HCT 36.2 % (40.0-50.0); HGB 11.5 g/dL (13.5-17.5); Immature Grans % 0.5 %; Lymphocytes % 7.4 %; MCH 29.3 pg (27.0-33.0); MCHC 31.8 % (32.0-36.0); MCV 92 fL (80-95); MPV 11.1 fL (8.0-11.0); Neutrophils % 72.8 %; Nucleated RBC 0.5 % (0.0-0.3); Platelet Count 637 10^3/uL (130-400); RBC 3.92 10^6/uL (4.36-5.78); RDW 20.3 % (11.8-14.1); RDW-SD 67.7 fL; WBC 6.05 10^3/uL (4.4-10.8)
[2024-02-06 13:06] LABS: ALT 21 U/L (16-63); AST 36 U/L (15-37); Albumin 3.4 g/dL (3.4-5.0); Alkaline Phosphatase 60 U/L (46-116); Anion Gap 10.7 mmol/L (3-11); BUN 33 mg/dL (7-18); Bilirubin, Total 0.69 mg/dL (0.2-1.0); CO2 27.3 mmol/L (21.0-32.0); CREATININE 1.5 mg/dL (0.70-1.30); Calcium 8.6 mg/dL (8.5-10.1); Chloride 103 mmol/L (98-107); Estimated GFR 46.19 (mL/min/1.73m2); Glucose 118 mg/dL (74-106); Potassium 3.8 mmol/L (3.5-5.1); Sodium 141 mmol/L (136-145); Total Protein 6.8 g/dL (6.4-8.2)
== END 2024-02-06 03:16 | disposition home or self-care (01) ==
PROVIDERS: PCP Family Medicine; Visit Provider Nurse Practitioner Adult Health
DX: D47.3 Essential (hemorrhagic) thrombocythemia (principal)
CPT/HCPCS: 36415; 80053; 85025

== ENCOUNTER 2024-02-29 01:54 | Outpatient (CLI) | payer MEDICARE, SELFPAY ==
[2024-02-29 11:06] LABS: Abs Immature Grans 0.03 10^3/uL (0.0-0.06); Absolute Basophil Count 0.09 10^3/uL (0.0-0.2); Absolute Eosinophil Count 0.17 10^3/uL (0.0-0.7); Absolute Lymphocyte Count 1.25 10^3/uL (1.2-3.4); Absolute Neutrophil Count 4.49 10^3/uL (1.2-6.7); Basophils % 1.3 %; Eosinophils % 2.5 %; HCT 40.8 % (40.0-50.0); HGB 12.7 g/dL (13.5-17.5); Immature Grans % 0.4 %; Lymphocytes % 18.3 %; MCH 29.7 pg (27.0-33.0); MCHC 31.1 % (32.0-36.0); MCV 95 fL (80-95); Monocytes % 11.7 %; Neutrophils % 65.8 %; RBC 4.28 10^6/uL (4.36-5.78); RDW 20.2 % (11.8-14.1); RDW-SD 69.2 fL; WBC 6.83 10^3/uL (4.4-10.8)
[2024-02-29 11:20] LABS: ALT 15 U/L (16-63); AST 21 U/L (15-37); Albumin 3.4 g/dL (3.4-5.0); Alkaline Phosphatase 77 U/L (46-116); Anion Gap 4.6 mmol/L (3-11); BUN 29 mg/dL (7-18); Bilirubin, Total 0.55 mg/dL (0.2-1.0); CO2 32.4 mmol/L (21.0-32.0); CREATININE 1.4 mg/dL (0.70-1.30); Calcium 9.1 mg/dL (8.5-10.1); Chloride 107 mmol/L (98-107); Estimated GFR 50.18 (mL/min/1.73m2); Glucose 77 mg/dL (74-106); Potassium 4.9 mmol/L (3.5-5.1); Sodium 144 mmol/L (136-145); Total Protein 7.1 g/dL (6.4-8.2)
[2024-02-29 11:34] LABS: Platelet Count 909 10^3/uL (130-400)
[2024-02-29 11:35] LABS: Anisocytosis 2+; Diff Comment Agrees w/ Instrument
[2024-02-29 11:36] LABS: Poikilocytes 2+
== END 2024-02-29 01:55 | disposition home or self-care (01) ==
PROVIDERS: PCP Family Medicine; Visit Provider Nurse Practitioner Adult Health
DX: D47.3 Essential (hemorrhagic) thrombocythemia (principal)
CPT/HCPCS: 36415; 80053; 85025

== ENCOUNTER 2024-09-20 22:15 | Outpatient (REF) | payer OTHER, SELFPAY ==
[2024-09-20 16:10] LABS: HCT 38.9 % (40.0-50.0); HGB 12.1 g/dL (13.5-17.5); MCH 27.9 pg (27.0-33.0); MCHC 31.1 % (32.0-36.0); MCV 90 fL (80-95); MPV 11.7 fL (8.0-11.0); RBC 4.33 10^6/uL (4.36-5.78); RDW-SD 70.4 fL; WBC 8.56 10^3/uL (4.4-10.8)
[2024-09-20 16:37] LABS: Glucose Negative (Negative)
[2024-09-20 16:44] LABS: WBC >50 HPF (0-5)
[2024-09-20 16:45] LABS: C & S Indicated? Yes; RDW 22.2 % (11.8-14.1)
[2024-09-20 16:46] LABS: Platelet Count 1054 10^3/uL (130-400)
== END 2024-09-20 22:16 | disposition home or self-care (01) ==
LOC: LBN 22:15
PROVIDERS: PCP Family Medicine; Visit Provider Family Medicine
DX: C67.9 Malignant neoplasm of bladder, unspecified (principal)
CPT/HCPCS: 85027; 87077; 81003; 81015; 87086

== ENCOUNTER 2025-01-17 10:55 | Inpatient (IN) | payer OTHER, SELFPAY ==
[2025-01-17 13:15] VITALS: BP 107/76; PULSE 82; RESP 16; TEMP 36.6; O2SAT 96
--- NOTE | 2025-01-17 15:08 | CHAPLAIN ---
Amari is a hospice patient here on respite. He was in bed resting when I visited and his was with him. Amari said that he lives in [place] but is from [place], [place]. I explained my role and offered support and let them know that Yadira Godwin, medical apparatus model maker for hospice, let me know that Amari was being admitted. Amari asked for something to drink, but his said he's not allowed to have drink right now because he's having trouble swallowing. I will continue to visit.
--- NOTE | 2025-01-17 17:51 | SP_ITS ---
Date of service: 01/17/25 Time of Service: 16:50 Subjective Clinical (Bedside) Swallow Evaluation - Inpatient Speech Language Pathology Referred by: Dr Yadira Godwin Referral Type: Urgent Swallow Consult Precautions: Standard, Fall, Aspiration Reason for Referral/HPI: Sy Pritchett is an 84 yo male with PMHx significant for bladder CA, dementia, and hx anoxic brain injury ~20 years ago. He is currently on hospice, presenting to [facility] secondary to significant decline in ability to take PO. Per Sy's he has been unable to take even sips of water over the last couple days, with steady gradual decline over the past couple weeks. He is currently NPO pending ASSET PROTECTION OFFICER evaluation. Pertinent PMHx: Hiatal hernia repair and Palma fundoplication at [facility] [place] in 2016. Endoscopy from February 2020 revealed severe esophagitis and that the Palma had come undone, stomach up in his chest. He was not a candidate for surgery. ASSET PROTECTION OFFICER IMPRESSIONS & RECOMMENDATIONS: Sy presented as alert and conversant. Oral mechanism examination revealed yellow coating on tongue and xerostomia, otherwise unremarkable. PO trials completed with thin liquid via spoon and straw (~1 ounce), mildly thick apple juice via spoon and cup (~2 ounces), applesauce (~2 ounces) , and diced peaches (~3 ounces). With initial trials of thin patient demonstrated intermittent cough, oral holding, and expectorated the bolus back out. However this was eliminated when he was given the cup/spoon to hold himself. Anticipate increased automaticity supports swallow efficiency. Frequent grimacing noted with all trials even when pt reporting it went fine. Overall he tolerated mildly thick liquids via spoon and via cup very well, and also tolerated applesauce and diced peaches without issue. Anticipate multifactorial oral pharyngeal dysphagia with primary factors including: cognitive dysphagia, xerostomia, and weakness from deconditioned state. Today he was able to tolerate minced/moist solids and mildly thick liquids very well. Please include puree options as well, however chewing may actually support automaticity of swallow. OK for small amounts of thin liquids if preferred and if tolerated. Sy is currently using hyoscyamine sulfate for managing excess frothy secretions- anticipate this could be contributing to xerostomia and consider holding at this time as it may be further exacerbating dysphagia. RN aware. Unfortuantely ASSET PROTECTION OFFICER services not available until Tuesday morning. Patient//nursing aware. Should questions arise in the interim, please [employer] ASSET PROTECTION OFFICER Casi Ortega for virtual support. RECOMMENDATIONS Diet modification is indicated as follows for the purpose of optimized comfort and efficiency with PO. Diet Recommendations: ? SOLIDS: 5-Minced & Moist Solids and 4-Pureed Solids LIQUIDS: 2-Mildly Thick Liquids (This was the easiest for Sy to swallow) 0- Thin Liquids (As tolerated/preferred) Ice chips for pleasure/comfort MEDICATIONS: Crushed in applesauce followed by sips of mildly thick liquid via cup Level of Assistance/Supervision: 1:1 close supervision and assistance from staff or family for all PO intake Strategies: Reduce auditory and/or visual distractions when eating (Turn off TV!) [place] upright for all PO intake Check for oral pocketing every 2-3 bites. If pocketing, offer empty spoon to support reflexive swallow Encourage Sy to hold cup to increase automaticity Remain upright at least 30-60 minutes after meal Oral hygiene Q3-4h/every 3-4 hours FURTHER INPATIENT ASSET PROTECTION OFFICER SERVICES: Patient to be followed while on unit Consider the Following Procedures: N/A at this time. Patient is on hospice and seeking comfort care. Discharge Recommendations: To be determined - ASSET PROTECTION OFFICER may be indicated pending progress SUBJECTIVE: Patient received:alert, awake, conversant, pleasant. Able to answer questions a ppropriately. Grimacing noted for most swallows even when reporting no issue. Pain Reported Stomach is spasming OBJECTIVE Patient positioning: As upright as possible using HOB/bed tilt controls Oral care: Certified Low Vision Therapist assisting to complete oral care prior to PO trials Respiratory status: Room air Speech: WFL Oral Mechanism Examination: Dentition: Upper dentures, natural lower dentition Oral mucosa: Dry Yellow coating on tongue ? Cranial Nerve Assessment: CN V ? Trigeminal Facial Sensation WNL Jaw Strength/ROM WNL ?WNL CN VII- Facial WNL labial ROM, strength, coordination. WNL lingual sensation WNL CN IX ? Glossopharyngeal WNL palatal elevation with phonation. No evidence of nasal emissions WNL CN X ? Vagus WNL Vocal quality and volume. Strong/sharp volitional cough WNL CX XII ? Hypoglossal WNL lingual ROM, strength, coordination WNL PO Intake: Trials Assessed: IDDSI 0 Thin Liquids IDDSI 2 Mildly Thick Liquid IDDSI 4 Puree Solid IDDSI 5 Minced and Moist Solid Oral Phase Findings: Difficulty with bolus manipulation Difficulty with a-p transport Difficulty chewing Pocketing Pharyngeal Phase Findings: Delayed swallow initiation Reduced hyolaryngeal elevation/excursion Cough after swallow with initial trials of thin only Esophageal Phase Findings: No observed or reported symptoms at bedside ?? Education Provided to: Nursing Topics Addressed: anatomy/physiology of swallowing mechanism ASSET PROTECTION OFFICER findings and recommendations POC PLAN: Frequency: 2-3x/week for 1-2 weeks Goals: Snf Goals: Patient will remain free from aspiration-related illness, malnutrition, and dehydration. Short Term Goals: Patient will tolerate minced/moist Diet and mildly thick liquids without overt s/s aspiration across 2/2 visits. ASSET PROTECTION OFFICER CPT Code: 66885 Clinical Swallowing Evaluation Time: 6774-3731 Total patient contact: 60
[2025-01-17] MEDS: QUEtiapine 100 MG TAB PO (20:13)
[2025-01-17] MEDS: Ondansetron O.D.T. 4 MG TABEF PO (20:14)
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
[2025-01-17] MEDS: LORazepam 2 MG/1 ML Oral Concentrate 1 MG PO (23:23)
[2025-01-18] MEDS: Ondansetron O.D.T. 4 MG TABEF PO ×3 (06:38→21:46)
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
--- NOTE | 2025-01-18 10:12 | PDOC.CMPRO ---
Date of service: 01/18/25 Time of Service: 10:12 Care Management Progress Note Progress Note Text Progress Note Text: Sy was admitted to hospice for urothelial carcinoma of bladder. 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 This admission to [facility] is for respite for [place]. Sy has 2 adult children who live in [place], [place] 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 He was polite but not very talkative. When asked how he was doing he said ok. He is not able to tolerate much by mouth, so is not eating. CM will follow. Discharge Potential Discharge Needs: PCP F/U Appt Anticipated Barriers to Discharge: None Identified Patient/Family Education Needs: Review discharge instructions, discuss Ask Me Three Transportation: EMS Plan: Anticipate Amari will be discharged home with a resumption of hospice services when his respite admission ends. He will follow up [facility] his community providers and plan of care and transport with EMS. CM willl follow. Social Determinants of Health Screening Social Determinants of health last assessed in clinic: 01/18/25 Will the Patient Participate in the Screening?: Yes Do you worry about having a steady place to live?: no Problems where you live: no known problems In the past 12 months, have you had to go without electric, gas, oil or water in your home?: no 1. Within the past 12 months, we worried whether our food would run out before we got money to buy more.: Never true 2. Within the past 12 months, the food we bought just didn't last and we didn't have money to get more.: Never true Has lack of transportation kept you from medical appointments or from doing things needed for daily living?: no Has anyone in your life made you feel unsafe or unsupported?: no How hard is it for you to pay for the very basics like food, housing, medical care, and heating? Would you say it is:: Not hard at all Do you want help finding or keeping work or a job?: I do not need or want help If for any reason you need help with day-to-day activities such as bathing, preparing meals, shopping, managing finances, etc., do you get the help you need?: I get all the help I need How often do you feel lonely or isolated from those around you?: Never Do you speak a language other than Frisian at home?: No Does the patient want assistance with any of the above?: No Health Related Social Needs Health related social needs details: Pt on hospice, respite admission
--- NOTE | 2025-01-18 13:01 | PHA.REVIEW2 ---
Pharmacy Admission Review Admission Clinical Review Admission Pharmacy Review: Hospice care patient (Acute) Dysphagia (Acute) Urothelial carcinoma of bladder (Acute) DNR (do not resuscitate) (Acute) Weight loss (Acute) cyclobenzaprine HCl (From Flexeril) Adverse Reaction (Verified 03/05/24 12:49) CONFUSION Resuscitation Status DNR/DNI Height 6 ft Weight 58.23 kg Comments Comments/Follow Ups: Hospice respite Pharmacy Admission Review Renal Dosing Medications needing adjustments: Reviewed (CrCl 32.93 mL/min) List of meds needing interventions: Current medications are okay Anticoagulation DVT Prophylaxis: N/A (Hospice) Opiate Usage Evaluate Pain Scale/Pains Meds: Reviewed (morphine oral concentration q1h PRN - no doses given) Scheduled Bowel Reg ordered if on Opiates?: No (PRN Miralax/bisacodyl) Relevant Labs Electrolytes, C-Reactive P, ESR: N/A (Hospice) Cardiac Review BP, HR, EF%: N/A (Hospice) QTc Review QTc: Reviewed (413 from 07/05/23 - most recent EKG on file) IV to PO Switch IV Medications: Reviewed Home Meds Home Med List reviewed: Reviewed Relevent Home Meds Not ordered & why?: benzonatate (PRN), latanoprost and pantoprazole Current Meds Current Medication Order Review: Reviewed Comments Comments/Follow Ups: Hospice respite
[2025-01-18] MEDS: fentaNYL 12 MCG PATCH TD (16:31)
[2025-01-18] MEDS: QUEtiapine 100 MG TAB PO (21:46)
[2025-01-19] MEDS: Ondansetron O.D.T. 4 MG TABEF PO ×2 (06:07→13:38)
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
--- NOTE | 2025-01-19 09:32 | CMDISCH_ITS ---
Date of service: 01/19/25 Time of Service: 09:32 LACE Index Scoring Tool Questions: Length of Stay (in days): 2 Was the patient admitted via the E.D.?: No Comorbidities: Metastatic Solid Tumor E.D. Visits: 0 Answers: Total Score: 7 Risk of Readmission: Low Risk Care Management Discharge Plan Reason for Hospitalization: hospice respite Discharge Plan: Amari will return home with a resumption of hospice services and supports. He will follow up with his community providers and transport via EMS coordinated by hospice. Services Needed at Discharge: Home Health Care Services SDOH Health Related Social Needs: Health related social needs details Pt on hospice, res pite admission Health related social needs details: Pt on hospice, respite admission
--- NOTE | 2025-01-19 11:35 | NUR.NOTE ---
Nursing Note: pt to be discharged to home via ambulance pt confused sent discharge papers home with pt pt awake alert no discomfort noted pt sent home with his clothes and eye drops
== END 2025-01-19 15:51 | disposition hospice, home (50) | DRG 687 ==
PROVIDERS: Admitting Provider Family Medicine; PCP Family Medicine; Visit Provider Family Medicine
DX: C67.9 Malignant neoplasm of bladder, unspecified (principal); F03.911 Unspecified dementia, unspecified severity, with agitation; G93.1 Anoxic brain damage, not elsewhere classified; Z68.1 Body mass index [BMI] 19.9 or less, adult; K92.1 Melena; Z51.5 Encounter for palliative care; Z66 Do not resuscitate; R13.10 Dysphagia, unspecified; I48.91 Unspecified atrial fibrillation; R32 Unspecified urinary incontinence; R63.4 Abnormal weight loss; Z86.73 Personal history of transient ischemic attack (TIA), and cerebral infarction without residual deficits; Z79.899 Other long term (current) drug therapy; I34.0 Nonrheumatic mitral (valve) insufficiency; J44.9 Chronic obstructive pulmonary disease, unspecified; D47.3 Essential (hemorrhagic) thrombocythemia; K44.9 Diaphragmatic hernia without obstruction or gangrene; F32.A Depression, unspecified; I10 Essential (primary) hypertension; I25.2 Old myocardial infarction; H91.8X9 Other specified hearing loss, unspecified ear
CPT/HCPCS: 00123; 92610; J3490